=== PATIENT | female | born 1955 | race African-American/Black ===

== ENCOUNTER → 2016-06-02 | Emergency (ER) | payer MEDICARE, OTHER ==
[~2016-06-02] VITALS: Ht 148.6 cm; Wt 86.2 kg
[~2016-06-02] MED LIST: AMLO5TAB2 PO; ASPI325T4 PO; CIPR500T94 PO; FERR-26 PO; GABA-586 PO; INSU100C4 SQ; INSU100V8 SQ; LATA2.5D3 EACHEYE; LOVA10TA PO; MELO-150 PO; METF500T4 PO; OXYC-244 PO; OXYC20TA PO; OXYC5TAB PO; RANI150C PO; TRAM50TA PO; TRIA1CAP PO; WARF5TAB PO
[2016-06-02 15:34] VITALS: BP 180/88
== END ==
LOC: ER 14:07
DX: R05 Cough (principal); R06.02 Shortness of breath; Z53.21 Procedure and treatment not carried out due to patient leaving prior to being seen by health care provider

== ENCOUNTER → 2016-06-20 | Outpatient (CLI) | payer MEDICARE, OTHER ==
[2016-06-02 15:34] VITALS: BP 180/88
== END | disposition home or self-care (01) ==
LOC: LAB 11:30
PROVIDERS: ATTEND Orthopaedic Surgery Sports Medicine
DX: M25.551 Pain in right hip (principal)
CPT/HCPCS: 36415; 85651; 86141

== ENCOUNTER 2016-06-26 13:54 | Emergency (ER) | payer MEDICARE, OTHER ==
[~2016-06-26] VITALS: Ht 147.3 cm; Wt 86.2 kg
[2016-06-26 14:35] VITALS: BP 158/85
[2016-06-26] MEDS ORDERED: MORPHINE SULFATE 10 MG/ML VIAL. IM ONE (15:00)
--- NOTE | 2016-06-26 15:32 | RAD ---
Three-view right knee radiographs 06/26/2016 Clinical history: Right knee pain and swelling after twisting injury. AP, lateral and oblique digital radiographs of the right knee were obtained. There is diffuse osteopenia of the visualized bony structures. Mild to moderate degenerative changes are seen involving the right knee. No fracture or dislocation is seen. There is a minimal right suprapatellar joint effusion. Impression: No fracture or dislocation of the right knee is seen.
[2016-06-26] MEDS ORDERED: IBUP-1007 PO (16:04)
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
== END 2016-06-26 16:39 | disposition home or self-care (01) ==
LOC: ER 13:54
DX: M25.561 Pain in right knee (principal); E78.00 Pure hypercholesterolemia, unspecified; I10 Essential (primary) hypertension; E11.40 Type 2 diabetes mellitus with diabetic neuropathy, unspecified; G89.29 Other chronic pain; Z96.641 Presence of right artificial hip joint; Z88.8 Allergy status to other drugs, medicaments and biological substances; Z91.041 Radiographic dye allergy status
CPT/HCPCS: 73562; 96372; 99284; J2270

== ENCOUNTER 2016-10-12 08:33 | Emergency (ER) | payer MEDICARE, OTHER ==
[~2016-10-12] VITALS: Ht 147.3 cm; Wt 85.3 kg
[~2016-10-12 08:33] MED LIST changes: -ASPI325T4 PO; +ASPI325T8 PO; +IBUP-1007 PO; -MELO-150 PO; +MELO15TA23 PO; -OXYC-244 PO; +OXYC-327 PO; +WARF-78 PO; -WARF5TAB PO
[2016-10-12] MEDS ORDERED: HYDROmorphone 2 MG/ML VIAL IV PRN (09:45)
[2016-10-12] MEDS ORDERED: IV NORMAL SALINE 500ML BAG 500 ML IV ONE (09:45)
[2016-10-12] MEDS ORDERED: ONDANSETRON PF 4 MG/2 ML VIAL. IV ONE (09:45)
[2016-10-12] MEDS ORDERED: MORP15TA PO (09:50)
--- NOTE | 2016-10-12 09:51 | PHYS DOC ---
Past Medical History Past Medical History: Diabetes-Type II, High Cholesterol, Hypertension Additional Past Medical Histor: diabetic neuropathy,chronic rt hip pain(needs replacement) Past Surgical History: Hip Replacement Additional Past Surgical Histo: R hip Alcohol Use: None Drug Use: None Adult General Chief Complaint Chief Complaint: PAIN CONTROL HPI HPI 61-year-old female residing to the emergency department with right hip and knee pain after falling last week. She describes the pain is moderate nonradiating pain. She reports her right knee donna when she walks several to well. Her hip she has a history of total hip replacement in the past but not recent. She also complains of pain "from her toes to her head." No alleviating factors present. Worse with walking. Review of systems is negative for shortness of breath nausea vomiting diarrhea rashes. All other review of systems is negative unless otherwise noted in history of present illness. ED course: 61-year-old female presenting with right hip pain and right knee pain. Afebrile. Patient has chronic hypertension and is hypertensive present here. Physical examination shows mild pain with range of motion of both joints. Negative Dorothy's test. No laxity with varus or valgus testing. Range of motion of the right hip shows pain with passive range of motion. No clicking present. Normal neurovascular status present distally. Otherwise unremarkable. The patient was given IV pain medication and nausea medication with a small bolus of fluids. X-rays were obtained and neg. On reexamination she was feeling better and subsequent discharged home. The patient was then discharged home in stable condition to follow up with their primary care physician over the next 2- 3 days. They were to return if their symptoms worsened or if they were concerned for any reason. Nisu-ye-zijk discharge instructions and return precautions were given. Patient's questions were answered to their satisfaction. Patient is comfortable plan. Review of Systems Review of Systems SEE ABOVE. Current Medications Current Medications Current Medications Medications (Trade) Dose Ordered Sig/[facility] Start Time Stop Time Status Last Admin Dose Admin Hydromorphone HCl (Dilaudid) 0.5 mg PRN Q30MIN PRN 10/12/16 09:45 10/12/16 10:17 0.5 MG Ondansetron HCl (Zofran) 4 mg 1X ONCE 10/12/16 09:45 10/12/16 09:46 DC 6/24/17 10:16 4 MG Sodium Chloride 500 ml @ 500 mls/hr 1X ONCE 10/12/16 09:45 10/12/16 10:44 DC 10/12/16 10:16 500 MLS/HR Allergies Allergies Allergies Coded Allergies Type Severity Reaction Last Updated Verified Iodinated Contrast Media - Oral and Allergy Intermediate Hives 12/16/15 Yes losartan Allergy Intermediate 12/16/15 Yes lisinopril Adverse Reaction Intermediate COUGH 12/16/15 Yes Physical Exam Physical Exam Constitutional: Well developed, well nourished, no acute distress, non-toxic appearance. HENT: Normocephalic, atraumatic, bilateral external ears normal, oropharynx moist, no oral exudates, nose normal. [] Eyes: PERRLA, EOMI, conjunctiva normal, no discharge. [] Neck: Normal range of motion, no tenderness, supple, no stridor. Cardiovascular:Heart rate regular rhythm, no murmur [] Lungs & Thorax: Bilateral breath sounds clear to auscultation [] Abdomen: Bowel sounds normal, soft, no tenderness, no masses, no pulsatile masses. [] Skin: Warm, dry, no erythema, no rash. Back: No tenderness, no CVA tenderness. [] Extremities: see above Neurologic: Alert and oriented X 3, normal motor function, normal sensory function, no focal deficits noted. Psychologic: Affect normal, judgement normal, mood normal. [] Current Patient Data Vital Signs Vital Signs Date Time Temp Pulse Resp B/P (MAP) Pulse Ox O2 Delivery O2 Flow Rate FiO2 10/12/16 10:17 16 94 Room Air 10/12/16 09:16 98.1 79 190/84 (119) 98.1 EKG EKG [] Radiology/Procedures Radiology/Procedures [] Course & Med Decision Making Course & Med Decision Making Pertinent Labs and Imaging studies reviewed. (See chart for details) [] Dragon Disclaimer Dragon Disclaimer This electronic medical record was generated, in whole or in part, using a voice recognition dictation system. Departure Departure Impression: Primary Impression: Hip pain, acute Additional Impression: Knee pain, right Disposition: 01 HOME, SELF-CARE Condition: STABLE Referrals: HESHAM BEY MD (PCP) Patient Instructions: Hip Pain, Knee Pain Additional Instructions: Thank you for allowing us to participate in your care today. Followup with your primary care physician in 3 days if your symptoms do not improve. Call your Primary Doctor tomorrow and inform them of your visit today. If you do not have a primary care provider you can ask for a list of our primary care providers. Return to the emergency department you have any new or concerning findings. This should be evaluated by the primary care physician and any necessary consulting services for continued management within a few days after discharge. Return to emergency room if you have any new or concerning symptoms including but not limited to fever, chills, nausea, vomiting, intractable pain, any new rashes, chest pain, shortness of air, uncontrolled bleeding, difficulty breathing, and/or vision loss. You may have been prescribed medication that can change in your level of thinking and ability to operate machinery. These medications include hydrocodone and Ativan. Also, Benadryl has been known to do this as well. Be sure to check with your pharmacist and ask if the medications you've prescribed can affect your level of consciousness. I recommend not operating heavy machinery or driving while on medication such as these. Scripts Morphine Sulfate (MORPHINE SULFATE) 15 Mg Tablet 1 TAB PO PRN Q6-8HRS Y for SEVERE PAIN, #4 TAB Prov: RAY BAILON MD 10/12/16 Problem Qualifiers RAY BAILON MD Oct 12, 2016 09:51
--- NOTE | 2016-10-12 10:22 | RAD ---
RIGHT HIP AP AND LATERAL, AP pelvis Clinical Indication: right knee pain, fell x1 week. Hip replacement 12 months ago. Comparison: AP pelvis and right hip 12/17/2015. Findings: There is no acute fracture or dislocation. Right hip arthroplasty. Alignment is anatomic. There is no subsidence. Lucency along the distal femoral stem measures 1 mm or less. Pelvic bones are intact. There is no soft tissue abnormality. IMPRESSION: No acute fracture or dislocation.
--- NOTE | 2016-10-12 10:27 | RAD ---
KNEE 3 VIEWS RIGHT Clinical Indication: right knee pain fall x1 week Comparison: None. Findings: There is no acute fracture or dislocation. Medial compartment narrowing. Small marginal osteophytes of all 3 compartments. The patella is in anatomic position. There is no soft tissue abnormality. There is no joint effusion. IMPRESSION: No acute fracture.
[2016-10-12 12:09] VITALS: BP 162/77
== END 2016-10-12 12:16 | disposition home or self-care (01) ==
LOC: ER 08:33
DX: M25.561 Pain in right knee (principal); M25.551 Pain in right hip; E11.40 Type 2 diabetes mellitus with diabetic neuropathy, unspecified; E78.00 Pure hypercholesterolemia, unspecified; I10 Essential (primary) hypertension; Z96.641 Presence of right artificial hip joint; Z88.8 Allergy status to other drugs, medicaments and biological substances; Z91.041 Radiographic dye allergy status; W19.XXXA Unspecified fall, initial encounter; Y93.89 Activity, other specified; Y99.8 Other external cause status; Y92.89 Other specified places as the place of occurrence of the external cause
CPT/HCPCS: 73502; 73562; 96361; 96374; 96375; 99284; J1170; J2405; J7040

== ENCOUNTER 2016-11-01 10:56 | Emergency (ER) | payer MEDICARE, OTHER ==
[~2016-11-01] VITALS: Ht 147.3 cm; Wt 85.7 kg
[~2016-11-01 10:56] MED LIST changes: +MORP15TA PO
[2016-11-01 11:14] VITALS: BP 161/104
--- NOTE | 2016-11-01 11:34 | PHYS DOC ---
Past Medical History Past Medical History: Constipation, Diabetes-Type II, High Cholesterol, Hypertension Additional Past Medical Histor: diabetic neuropathy,chronic rt hip pain Past Surgical History: Hip Replacement, Hysterectomy Additional Past Surgical Histo: R hip Alcohol Use: None Drug Use: None Adult General Chief Complaint Chief Complaint: HIP PAIN HPI HPI Patient is a 61 year old -[place] female who presents with chronic right hip pain that was made worse after October 22 when she fell at [employer] she states it hurts constantly in her inguinal area. She also has had been left foot pain for 2 days. She's one if she stepped on something. She denies a fevers chills swelling of her foot or shortness of breath. She also noticed a lump in her breast this morning. She states she gets mammograms routinely he's never had issues before. She sees Dr. Hesham Epperson. Review of Systems Review of Systems Constitutional: Denies fever or chills [] Eyes: Denies change in visual acuity, redness, or eye pain [] HENT: Denies nasal congestion or sore throat [] Respiratory: Denies cough or shortness of breath [] Cardiovascular: No additional information not addressed in HPI [] GI: Denies abdominal pain, nausea, vomiting, bloody stools or diarrhea [] : Denies dysuria or hematuria [] Musculoskeletal: Denies back pain, positive for left foot pain and right hip pain Integument: Denies rash or skin lesions [] Neurologic: Denies headache, focal weakness or sensory changes [] Endocrine: Denies polyuria or polydipsia [] Current Medications Current Medications Current Medications Medications (Trade) Dose Ordered Sig/[facility] Start Time Stop Time Status Last Admin Dose Admin Oxycodone HCl (Roxicodone) 10 mg 1X ONCE 11/01/16 13:30 11/01/16 13:31 Allergies Allergies Allergies Coded Allergies Type Severity Reaction Last Updated Verified Iodinated Contrast Media - Oral and Allergy Intermediate Hives 12/16/15 Yes losartan Allergy Intermediate 12/16/15 Yes lisinopril Adverse Reaction Intermediate COUGH 12/16/15 Yes Physical Exam Physical Exam Constitutional: Well developed, well nourished, no acute distress, non-toxic appearance. [] HENT: Normocephalic, atraumatic, bilateral external ears normal, oropharynx moist, no oral exudates, nose normal. [] Eyes: PERRLA, EOMI, conjunctiva normal, no discharge. [] Neck: Normal range of motion, no tenderness, supple, no stridor. [] Cardiovascular:Heart rate regular rhythm, no murmur [] Lungs & Thorax: Bilateral breath sounds clear to auscultation right breast exam with gastroenterologist present shows mild tender to palpation in the 3 o'clock position without any mass appreciated, no nipple discharge. Abdomen: Bowel sounds normal, soft, no tenderness, no masses, no pulsatile masses. [] Skin: Warm, dry, no erythema, no rash. [] Back: No tenderness, no CVA tenderness. [] Extremities: Tender palpation of the right hip and left foot, no obvious deformities noted,, no cyanosis, no clubbing, ROM intact, no edema. [] Neurologic: Alert and oriented X 3, normal motor function, normal sensory function, no focal deficits noted. [] Psychologic: Affect normal, judgement normal, mood normal. [] Current Patient Data Vital Signs Vital Signs Date Time Temp Pulse Resp B/P (MAP) Pulse Ox O2 Delivery O2 Flow Rate FiO2 11/01/16 11:14 98.3 95 20 161/104 (123) 96 Room Air 98.3 EKG EKG [] Radiology/Procedures Radiology/Procedures [facility] [address] [place], [place] [id number] IMAGING REPORT Signed PATIENT: JULITA EPPERSON ACCOUNT: [id number] : 1955 LOCATION: ER AGE: 61 SEX: F EXAM STATUS: REG ER ORD. PHYSICIAN: AMEE GONZALEZ MD REASON: pain PROCEDURE: FOOT LEFT 3V Exam: Left foot radiograph 11/01/2016 at 1211 hours Indication: Stepped on unknown object pain in plantar surface the first and second metatarsal heads Comparison: None available Technique: 3 views of the left foot are provided. Findings: There is no acute fracture or dislocation. No joint space narrowing. No soft tissue swelling. No osseous erosion or soft tissue gas. Bone mineralization is within normal limits. No radiopaque foreign density. Impression: No acute fracture or dislocation. No radiopaque foreign density. DICTATED and SIGNED BY: PAOLO FOURNIER MD DATE: 11/01/16 1239 CC: AMEE GONZALEZ MD; HESHAM EPPERSON MD ~ [facility] [address] [place] [address] IMAGING REPORT Signed PATIENT: JULITA EPPERSON ACCOUNT: [id number] : 1955 LOCATION: ER AGE: 61 SEX: F EXAM STATUS: REG ER ORD. PHYSICIAN: AMEE GONZALEZ MD REASON: pain PROCEDURE: HIP RIGHT 2V WITH PELVIS Exam: Right hip radiograph 11/01/2016 at 1207 hours Indication: Fall 10/22/2016 with right groin pain Comparison: 10/12/2016 Technique: AP view of the pelvis and 2 dedicated views of the right hip are provided. Findings: Right total hip arthroplasty with components in expected alignment. No periprosthetic lucency. There is no acute fracture or dislocation. Mild degenerative changes of the lumbar spine and sacroiliac joints. No soft tissue swelling. No osseous erosion or soft tissue gas. Bone mineralization is within normal limits. Impression: No acute periprosthetic fracture or dislocation involving the right hip. DICTATED and SIGNED BY: PAOLO FOURNIER MD DATE: 11/01/16 1240 CC: AMEE GONZALEZ MD; HESHAM EPPERSON MD ~ Impressions: Right hip pain Foot pain Course & Med Decision Making Course & Med Decision Making Pertinent Labs and Imaging studies reviewed. (See chart for details) Trace of the right hip and left foot are nonacute. Her breast exam shows mild tenderness at do not appreciate a mass, I suspect this is her normal breast architecture but she does have some tenderness. She was given 10 mg oxycodone and discharged home. She is instructed to follow-up with her primary care physician within next 5-10 days regarding her breast in her chronic pain. Return precautions given she is agreeable to the plan and being discharged in stable condition this time. She was instructed she had have a neighbor drive her home before she was given her oxycodone since she drove herself here. Dragon Disclaimer Dragon Disclaimer This electronic medical record was generated, in whole or in part, using a voice recognition dictation system. Departure Departure Impression: Primary Impression: Hip pain, right Disposition: HOME, SELF-CARE Condition: STABLE Referrals: HESHAM EPPERSON MD (PCP) Patient Instructions: Hip Pain Additional Instructions: Your x-rays of your hip and foot did not show anything broken. Your being discharged home. If you continue to have pain in your right breast or your lump increases or doesn't go away you need to follow-up with her primary care physician. He will need to see him within the next 5-10 days. Return ER for severe pain, fevers, or other concerns. AMEE GONZALEZ MD Nov 01, 2016 11:34
--- NOTE | 2016-11-01 12:43 | RAD ---
Exam: Left foot radiograph 11/01/2016 at 1211 hours Indication: Stepped on unknown object pain in plantar surface the first and second metatarsal heads Comparison: None available Technique: 3 views of the left foot are provided. Findings: There is no acute fracture or dislocation. No joint space narrowing. No soft tissue swelling. No osseous erosion or soft tissue gas. Bone mineralization is within normal limits. No radiopaque foreign density. Impression: No acute fracture or dislocation. No radiopaque foreign density.
--- NOTE | 2016-11-01 12:45 | RAD ---
Exam: Right hip radiograph 11/01/2016 at 1207 hours Indication: Fall 10/22/2016 with right groin pain Comparison: 10/12/2016 Technique: AP view of the pelvis and 2 dedicated views of the right hip are provided. Findings: Right total hip arthroplasty with components in expected alignment. No periprosthetic lucency. There is no acute fracture or dislocation. Mild degenerative changes of the lumbar spine and sacroiliac joints. No soft tissue swelling. No osseous erosion or soft tissue gas. Bone mineralization is within normal limits. Impression: No acute periprosthetic fracture or dislocation involving the right hip.
[2016-11-01] MEDS ORDERED: oxyCODONE IR 5 MG TABLET PO ONE (13:30)
== END 2016-11-01 13:33 | disposition home or self-care (01) ==
LOC: ER 10:56
DX: M25.551 Pain in right hip (principal); M79.672 Pain in left foot; G89.29 Other chronic pain; N63 Unspecified lump in breast; E11.40 Type 2 diabetes mellitus with diabetic neuropathy, unspecified; E78.00 Pure hypercholesterolemia, unspecified; I10 Essential (primary) hypertension; Z96.649 Presence of unspecified artificial hip joint; Z90.710 Acquired absence of both cervix and uterus; Z88.8 Allergy status to other drugs, medicaments and biological substances; Z91.041 Radiographic dye allergy status; W18.39XA Other fall on same level, initial encounter; Y93.89 Activity, other specified; Y99.8 Other external cause status; Y92.29 Other specified public building as the place of occurrence of the external cause
CPT/HCPCS: 73502; 73630; 99284

== ENCOUNTER 2016-11-21 17:34 | Emergency (ER) | payer OTHER ==
[~2016-11-21] VITALS: Ht 147.3 cm; Wt 83.9 kg
[2016-11-21 18:17] VITALS: BP 152/64
[2016-11-21] MEDS ORDERED: METOCLOPRAMIDE 10 MG TABLET. PO ONE (19:00)
[2016-11-21] MEDS ORDERED: ONDANSETRON ODT 4 MG TAB.RAPDIS. PO ONE (19:00)
--- NOTE | 2016-11-21 23:48 | ED.ADGEN ---
Past Medical History Past Medical History: Constipation, Diabetes-Type II, High Cholesterol, Hypertension Additional Past Medical Histor: diabetic neuropathy,chronic rt hip pain Past Surgical History: Hip Replacement, Hysterectomy Additional Past Surgical Histo: R hip Alcohol Use: None Drug Use: None Social History Narrative: sober Adult General Chief Complaint Chief Complaint: MULTIPLE COMPLAINTS HPI HPI Patient is a 61 year old -[place] female presents with dysphagia. Patient reports painful difficulty swallowing prior to ED arrival resulting and epigastric pain and discomfort. Symptoms have since resolved. Patient denies nausea vomiting, inability to swallow liquids and solid foods. This is a chronic recurrent problem. Patient states symptoms are worse when she feels distended. Patient has chronic constipation and has not had a bowel movement in past 3 weeks. States she can sometimes go greater than month without a bowel movement. She took mag citrate 2 days ago without relief. His previous history of instruction. She denies diarrhea and is able to pass flatus. No fever, chills, vomiting and sweats. No other acute symptoms or complaints. Review of Systems Review of Systems ROS as per HPI. Current Medications Current Medications Current Medications Medications (Trade) Dose Ordered Sig/Jani Start Time Stop Time Status Last Admin Dose Admin Metoclopramide HCl (Reglan) 10 mg 1X ONCE 11/21/16 19:00 11/21/16 19:01 DC Ondansetron HCl (Zofran Odt) 4 mg 1X ONCE 11/21/16 19:00 11/21/16 19:01 DC Allergies Allergies Allergies Coded Allergies Type Severity Reaction Last Updated Verified Iodinated Contrast- Oral and IV Dye Allergy Intermediate Hives 12/16/15 Yes losartan Allergy Intermediate 12/16/15 Yes lisinopril Adverse Reaction Intermediate COUGH 12/16/15 Yes Physical Exam Physical Exam Constitutional: Well developed, well nourished, no acute distress, non-toxic appearance. [] HENT: Normocephalic, atraumatic, bilateral external ears normal, oropharynx moist, no oral exudates, nose normal. [] Eyes: PERRLA, EOMI, conjunctiva normal, no discharge. [] Neck: Normal range of motion, no tenderness, supple, no stridor. [] Cardiovascular:Heart rate regular rhythm, no murmur [] Lungs & Thorax: Bilateral breath sounds clear to auscultation [] Abdomen: Bowel sounds normal, soft, stented, normal bowel sounds.. [] Skin: Warm, dry, no erythema, no rash. [] Back: No tenderness, no CVA tenderness. [] Extremities: No tenderness, no cyanosis, no clubbing, ROM intact, no edema. [] Neurologic: Alert and oriented X 3, normal motor function, normal sensory function, no focal deficits noted. [] Psychologic: Affect is anxious. Current Patient Data Vital Signs Vital Signs Date Time Temp Pulse Resp B/P (MAP) Pulse Ox O2 Delivery O2 Flow Rate FiO2 11/21/16 18:17 86 27 152/64 (93) 95 Room Air 11/21/16 17:50 98.3 98.3 EKG EKG [] Radiology/Procedures Radiology/Procedures [Acute abdominal series: No air-fluid levels.] Course & Med Decision Making Course & Med Decision Making Pertinent Labs and Imaging studies reviewed. (See chart for details) [Patient clinically anxious. Abdomen soft, nondistended but nonsurgical. No nausea vomiting in the ED. Denies chest pain shortness of breath. Patient does suffer from chronic constipation likely contributing to her dysphagia. Recommendations are to continue current antacids and with he follow-up for consideration of GI referral. Return precautions reviewed. Patient verbalizes understanding agreement discharge instructions prior to departure. Dragon Disclaimer Dragon Disclaimer This electronic medical record was generated, in whole or in part, using a voice recognition dictation system. KRISSY SU DO Nov 21, 2016 23:48
--- NOTE | 2016-11-22 08:00 | RAD ---
Acute abdominal series 11/21/2016 Clinical indication: Nausea and vomiting for one week, epigastric pain. Hypertension and diabetes. Comparison: Chest radiograph 11/05/2015, CT abdomen and pelvis 09/08/2015. Findings: Cardiac and mediastinal silhouettes are within normal limits. No pleural effusion, pneumothorax or focal consolidation. There is a nonobstructive bowel gas pattern. Total right hip arthroplasty. There is a 12 mm calcific density projected left lateral to the L3-L4 level and concerning for a migrated renal stone which may be in the mid left ureter. Impression: 1. 12 mm calcific density projected in the region of the mid left ureter which may represent a urolith. Given epigastric pain, consideration for noncontrast CT for further evaluation. 2. No radiographic evidence of bowel obstruction or acute cardiopulmonary abnormality. These results and recommendations were discussed with with Dr. Vazquez of the emergency service by telephone at 7:55 AM 11/22/[address] Nitin Diane.
== END 2016-11-21 19:35 | disposition home or self-care (01) ==
LOC: ER 17:34
DX: R10.13 Epigastric pain (principal); R13.10 Dysphagia, unspecified; E11.40 Type 2 diabetes mellitus with diabetic neuropathy, unspecified; E78.00 Pure hypercholesterolemia, unspecified; I10 Essential (primary) hypertension; G89.29 Other chronic pain; F41.9 Anxiety disorder, unspecified; Z96.641 Presence of right artificial hip joint; Z90.710 Acquired absence of both cervix and uterus; Z91.041 Radiographic dye allergy status; Z88.8 Allergy status to other drugs, medicaments and biological substances
CPT/HCPCS: 74022; 99284

== ENCOUNTER → 2016-12-25 | Outpatient (CLI) | payer MEDICARE, OTHER ==
[~2016-12-25] MED LIST changes: -OXYC5TAB PO; +OXYC5TAB95 PO
--- NOTE | 2016-12-25 15:56 | KCIC ---
Bilateral diagnostic digital mammograms: Reason for examination: Right breast lump. Comparison is made to previous study dated 02/28/2012. The skin and nipples show no abnormalities. No abnormal lymph nodes are seen. The breast parenchyma is predominantly fatty. (Breast density: Category A.) There continues to be a small nodular density at the 1:30 B position of the right breast which has decreased in size. There are no new dominant masses, suspicious calcifications or architectural distortions. No abnormality is seen in the area of clinical concern in the lower inner quadrant of the right breast. Impression: No evidence of malignancy. Ultrasound to follow. BI-RADS Category 0: Incomplete. Ultrasound to follow. Right breast ultrasound: Ultrasound examination was performed in the area of clinical concern at the 3:00 position 6 cm from the nipple. There is a small hyperintense lesion consistent with a lipoma measuring approximately 8.7 mm in greatest dimension. In the 2:00 position 9 cm from the nipple, there is also a hyperintense lesion measuring 6.4 mm in greatest dimension also consistent with a lipoma. No other discrete lesions are identified. IMPRESSION: Small benign-appearing lipoma in the 3:00 and 2:00 positions of the right breast. No suspicious abnormality seen. Recommend routine mammographic follow-up. BI-RADS Category 2: Benign. "Our facility is accredited by the [employer] Mammography Program." This patient's information has been entered into a reminder system for the patient to be notified with the results of her examination and a target date for the next mammogram. Electronically signed by: Liseth Casarez MD (12/25/2016 3:53 PM) [id number]
== END | disposition home or self-care (01) ==
LOC: KCIC MAMMO 13:48
PROVIDERS: ATTEND Family Medicine
DX: N63 Unspecified lump in breast (principal)
CPT/HCPCS: 76641; G0204; 77066

== ENCOUNTER 2017-01-23 16:11 | Emergency (ER) | payer OTHER ==
[~2017-01-23] VITALS: Ht 147.3 cm; Wt 81.6 kg
[2017-01-23 16:28] VITALS: BP 160/88
--- NOTE | 2017-01-23 16:40 | PHYS DOC ---
Past Medical History Past Medical History: Constipation, Diabetes-Type II, High Cholesterol, Hypertension Additional Past Medical Histor: diabetic neuropathy,chronic rt hip pain Past Surgical History: Hip Replacement, Hysterectomy Additional Past Surgical Histo: R hip Alcohol Use: None Drug Use: None Adult General Chief Complaint Chief Complaint: KNEE INJURY HPI HPI Patient is a 61 year old L presents to the emergency department to chronic left knee pain. Patient states that she has had left knee pain for "a long time. She states that she sees an orthopedic physician for her right hip but does not want to see him for her left knee issues. Patient has a chronic use of oxycodone and tramadol. In a 30 day window she filled oxycodone 20 mg tablets # 180 and tramadol 50 mg tablets #240. Urgency department requesting an injection of Dilaudid Review of Systems Review of Systems Constitutional: Denies fever or chills [] Eyes: Denies change in visual acuity, redness, or eye pain [] HENT: Denies nasal congestion or sore throat [] Respiratory: Denies cough or shortness of breath [] Cardiovascular: No additional information not addressed in HPI [] GI: Denies abdominal pain, nausea, vomiting, bloody stools or diarrhea [] : Denies dysuria or hematuria [] Musculoskeletal: Chronic knee pain Integument: Denies rash or skin lesions [] Neurologic: Denies headache, focal weakness or sensory changes [] Endocrine: Denies polyuria or polydipsia [] Allergies Allergies Allergies Coded Allergies Type Severity Reaction Last Updated Verified Iodinated Contrast- Oral and IV Dye Allergy Intermediate Hives 12/16/15 Yes losartan Allergy Intermediate 12/16/15 Yes lisinopril Adverse Reaction Intermediate COUGH 12/16/15 Yes Physical Exam Physical Exam Constitutional: Well developed, well nourished, no acute distress, non-toxic appearance. [] HENT: Normocephalic, atraumatic, bilateral external ears normal, oropharynx moist, no oral exudates, nose normal. [] Eyes: PERRLA, EOMI, conjunctiva normal, no discharge. [] Neck: Normal range of motion, no tenderness, supple, no stridor. [] Cardiovascular:Heart rate regular rhythm, no murmur [] Lungs & Thorax: Bilateral breath sounds clear to auscultation [] Abdomen: Bowel sounds normal, soft, no tenderness, no masses, no pulsatile masses. [] Skin: Warm, dry, no erythema, no rash. [] Back: No tenderness, no CVA tenderness. [] Extremities: Left lower extremity exam: Left hip left ankle exam unremarkable. Left knee without swelling or erythema. Full range of motion without difficult. No crepitus with flexion extension. No laxity on anterior drawer negative valgus /varus stress test. Neurovascular intact distally. Calf is supple and nontender. Neurologic: Alert and oriented X 3, normal motor function, normal sensory function, no focal deficits noted. [] Psychologic: Affect normal, judgement normal, mood normal. [] Current Patient Data Vital Signs Vital Signs Date Time Temp Pulse Resp B/P (MAP) Pulse Ox O2 Delivery O2 Flow Rate FiO2 01/23/17 16:28 98.3 83 16 97 Room Air 98.3 EKG EKG [] Radiology/Procedures Radiology/Procedures [] Course & Med Decision Making Course & Med Decision Making Pertinent Labs and Imaging studies reviewed. (See chart for details) []Patient was given a shot of Depo-Medrol 40 mg IM in the emergency department. I did have a long discussion with her regarding her fill history for narcotic medications. I did advise her she would not be given any narcotics in the emergency room visit today. Patient was somewhat argumentative. I advised her to follow-up with her primary care provider for further evaluation and use of her chronic pain medications. Dragon Disclaimer Dragon Disclaimer This electronic medical record was generated, in whole or in part, using a voice recognition dictation system. Departure Departure Impression: Primary Impression: Chronic pain of left knee Disposition: 01 HOME, SELF-CARE Condition: STABLE Referrals: HESHAM BEY MD (PCP) Patient Instructions: Chronic Pain Additional Instructions: Follow-up with your primary care provider tomorrow. BRUNO LEWIS [employer] Jan 23, 2017 16:39
[2017-01-23] MEDS ORDERED: methylPREDNISolone ACETATE 40 MG/ML VIAL. IM ONE (16:45)
[2017-02-20] MEDS ORDERED: INSU100V5 IJ (08:28)
== END 2017-01-23 16:50 | disposition home or self-care (01) ==
LOC: ER 16:11
DX: G89.29 Other chronic pain (principal); M25.562 Pain in left knee; I10 Essential (primary) hypertension; E78.00 Pure hypercholesterolemia, unspecified; E11.40 Type 2 diabetes mellitus with diabetic neuropathy, unspecified; Z91.041 Radiographic dye allergy status; Z88.8 Allergy status to other drugs, medicaments and biological substances
CPT/HCPCS: 29505; 96372; 99283; J1030

== ENCOUNTER → 2017-07-04 | Outpatient (CLI) | payer OTHER | END | disposition home or self-care (01) | LOC: KCIC MRI 11:04 | DX: M47.892 Other spondylosis, cervical region (principal); R20.0 Anesthesia of skin | CPT/HCPCS: 72141 ==

== ENCOUNTER → 2017-08-20 | Outpatient (CLI) | payer OTHER ==
[~2017-08-20] MED LIST changes: -AMLO5TAB2 PO; -ASPI325T8 PO; -CIPR500T94 PO; -FERR-26 PO; -GABA-586 PO; -IBUP-1007 PO; -INSU100C4 SQ; -INSU100V8 SQ; +IOHEXOL 300 MG/ML 10ML VIAL. INT ART; -LATA2.5D3 EACHEYE; -LOVA10TA PO; -MELO15TA23 PO; -METF500T4 PO; -MORP15TA PO; -OXYC-327 PO; -OXYC20TA PO; -OXYC5TAB95 PO; -RANI150C PO; -TRAM50TA PO; -TRIA1CAP PO; -WARF-78 PO
[2017-08-20] MEDS: LIDOCAINE WITH 8.4% SOD BICARB 3 ML DISP.SYRIN. INJ (08:50)
== END | disposition home or self-care (01) ==
LOC: RAD 15:41
DX: M25.551 Pain in right hip (principal); H40.9 Unspecified glaucoma; E78.00 Pure hypercholesterolemia, unspecified; I10 Essential (primary) hypertension; E66.9 Obesity, unspecified; M19.90 Unspecified osteoarthritis, unspecified site; E11.9 Type 2 diabetes mellitus without complications; F32.9 Major depressive disorder, single episode, unspecified; K21.9 Gastro-esophageal reflux disease without esophagitis; F17.200 Nicotine dependence, unspecified, uncomplicated; D64.9 Anemia, unspecified; Z80.0 Family history of malignant neoplasm of digestive organs; Z90.721 Acquired absence of ovaries, unilateral; Z83.3 Family history of diabetes mellitus; Z82.49 Family history of ischemic heart disease and other diseases of the circulatory system; Z98.890 Other specified postprocedural states
CPT/HCPCS: 20605; 77002; 87071; 87075; 87205

== ENCOUNTER 2018-03-13 08:11 | Emergency (ER) | payer OTHER ==
[~2018-03-13] VITALS: Ht 147.3 cm; Wt 79.4 kg
[~2018-03-13 08:11] MED LIST changes: +AMLO5TAB7 PO; +ASPI325T8 PO; +CIPR500T94 PO; +FERR325T14 PO; +GABA-586 PO; +IBUP-1007 PO; +INSU100C4 SQ; +INSU100V5 IJ; +INSU100V8 SQ; -IOHEXOL 300 MG/ML 10ML VIAL. INT ART; +LATA2.5D3 EACHEYE; +LOVA10TA PO; +MELO15TA23 PO; +METF500T16 PO; +MORP15TA PO; +OXYC-327 PO; +OXYC20TA PO; +OXYC5TAB95 PO; +RANI150C PO; +TRAM50TA PO; +TRIA1CAP PO; +WARF-78 PO
[2018-03-13] MEDS ORDERED: CLOT15CR5 TP (09:35)
[2018-03-13] MEDS ORDERED: NYST15PO9 TP (09:35)
--- NOTE | 2018-03-13 09:35 | PHYS DOC ---
Past Medical History Past Medical History: Constipation, Depression, Diabetes-Type II, High Cholesterol, Hypertension, Other Additional Past Medical Histor: diabetic neuropathy,chronic rt hip pain Past Surgical History: Hip Replacement, Hysterectomy, Other Additional Past Surgical Histo: R hip Alcohol Use: None Drug Use: None Adult General Chief Complaint Chief Complaint: SKIN RASH/ABSCESS HPI HPI Patient is a 62 year old [f__sex] who presents with [] Review of Systems Review of Systems Constitutional: Denies fever or chills [] Eyes: Denies change in visual acuity, redness, or eye pain [] HENT: Denies nasal congestion or sore throat [] Respiratory: Denies cough or shortness of breath [] Cardiovascular: No additional information not addressed in HPI [] GI: Denies abdominal pain, nausea, vomiting, bloody stools or diarrhea [] : Denies dysuria or hematuria [] Musculoskeletal: Denies back pain or joint pain [] Integument: Denies rash or skin lesions [] Neurologic: Denies headache, focal weakness or sensory changes [] Endocrine: Denies polyuria or polydipsia [] All other systems were reviewed and found to be within normal limits, except as documented in this note. Allergies Allergies Allergies Coded Allergies Type Severity Reaction Last Updated Verified Iodinated Contrast- Oral and IV Dye Allergy Intermediate Hives 12/16/15 Yes losartan Allergy Intermediate breaks out 02/20/17 Yes lisinopril Adverse Reaction Intermediate COUGH 12/16/15 Yes Physical Exam Physical Exam Constitutional: Well developed, well nourished, no acute distress, non-toxic appearance. [] HENT: Normocephalic, atraumatic, bilateral external ears normal, oropharynx moist, no oral exudates, nose normal. [] Eyes: PERRLA, EOMI, conjunctiva normal, no discharge. [] Neck: Normal range of motion, no tenderness, supple, no stridor. [] Cardiovascular:Heart rate regular rhythm, no murmur [] Lungs & Thorax: Bilateral breath sounds clear to auscultation [] Abdomen: Bowel sounds normal, soft, no tenderness, no masses, no pulsatile masses. [] Skin: Warm, dry, no erythema, no rash. [] Back: No tenderness, no CVA tenderness. [] Extremities: No tenderness, no cyanosis, no clubbing, ROM intact, no edema. [] Neurologic: Alert and oriented X 3, normal motor function, normal sensory function, no focal deficits noted. [] Psychologic: Affect normal, judgement normal, mood normal. [] Current Patient Data Vital Signs Vital Signs Date Time Temp Pulse Resp B/P (MAP) Pulse Ox O2 Delivery O2 Flow Rate FiO2 03/13/18 09:13 98.4 85 17 149/86 (107) 95 Room Air 98.4 EKG EKG [] Radiology/Procedures Radiology/Procedures [] Course & Med Decision Making Course & Med Decision Making Pertinent Labs and Imaging studies reviewed. (See chart for details) [] Dragon Disclaimer Dragon Disclaimer This electronic medical record was generated, in whole or in part, using a voice recognition dictation system. Departure Departure Impression: Primary Impression: Intertrigo Referrals: HESHAM BEY MD (PCP) Patient Instructions: Yeast Infection of the Skin, [id number] Additional Instructions: Use the cream to help control itching and to clear up the infection. The powder will help keep the skin dry and resolve the yeast. Follow-up with your primary care provider in one week if not improving or return to the emergency department if worsening. Scripts Nystatin (NYSTATIN) 15 Gm Powder 1 WERO TP BID for rash, #1 BOTTLE Prov: PATTIE MONTOYA APRN 03/13/18 Clotrimazole/Betamethasone Dip (CLOTRIMAZOLE-BETAMETHASONE CRM) 15 Gm Cream..g. 1 WERO TP BID for rash, #30 GM 1 Refill Prov: PATTIE MONTOYA APRN 03/13/18 PATTIE MONTOYA APRN Mar 13, 2018 09:35
== END 2018-03-13 09:41 | disposition home or self-care (01) ==
LOC: ER 08:11
DX: L30.4 Erythema intertrigo (principal); E78.00 Pure hypercholesterolemia, unspecified; I10 Essential (primary) hypertension; E11.40 Type 2 diabetes mellitus with diabetic neuropathy, unspecified; G89.29 Other chronic pain; Z88.8 Allergy status to other drugs, medicaments and biological substances; Z91.041 Radiographic dye allergy status
CPT/HCPCS: 99284

== ENCOUNTER 2018-03-15 06:54 | Emergency (ER) | payer OTHER ==
[~2018-03-15] VITALS: Ht 147.3 cm; Wt 83.9 kg
[~2018-03-15 06:54] MED LIST changes: +CLOT15CR5 TP; +NYST15PO9 TP; -OXYC-327 PO; +OXYC1TAB19 PO; +OXYC5TAB4 PO; -OXYC5TAB95 PO
[2018-03-15] MEDS ORDERED: IV NORMAL SALINE 1000ML BAG 1,000 ML IV SCH (06:56)
[2018-03-15] MEDS ORDERED: ONDANSETRON PF 4 MG/2 ML VIAL. IV ONE (07:00)
--- NOTE | 2018-03-15 07:00 | PHYS DOC ---
Past Medical History Past Medical History: Constipation, Depression, Diabetes-Type II, High Cholesterol, Hypertension, Other Additional Past Medical Histor: diabetic neuropathy,chronic rt hip pain Past Surgical History: Hip Replacement, Hysterectomy, Other Additional Past Surgical Histo: R hip Smoking: Cigarettes (The patient is a nonsmoker.) Alcohol Use: None Drug Use: None Adult General HPI HPI Patient is a 62-year-old -[place] female who arrives in the emergency department via EMS. She states that at about 3 AM, she felt like she had to have a bowel movement but was only able to pass a small amount of hard stool. She states she has been constipated for the past several days. She began getting diaphoretic and generally weak and very nauseated. She states she has had similar symptoms in the past, and states she was hospitalized here several years ago for this. She has not had any actual vomiting. She denies any chest pain or shortness of breath. She does feel generally weak and "sick" all over. She has not had any fevers or chills, and denies any urinary symptoms. There are no alleviating or exacerbating factors to the patient's symptoms. She does admit to some generalized abdominal pain all over her abdomen. Review of Systems Review of Systems Constitutional: Denies fever or chills [] Eyes: Denies change in visual acuity, redness, or eye pain [] HENT: Denies nasal congestion or sore throat [] Respiratory: Denies cough or shortness of breath [] Cardiovascular: The patient denies any shortness of breath, chest pain, palpitations, or orthopnea [] GI: No additional information not addressed in HPI [] : Denies dysuria or hematuria [] Musculoskeletal: Denies back pain or joint pain [] Integument: Denies rash or skin lesions [] Neurologic: Denies headache, focal weakness or sensory changes [] Endocrine: Denies polyuria or polydipsia [] All other systems were reviewed and found to be within normal limits, except as documented in this note. Current Medications Current Medications Current Medications Medications (Trade) Dose Ordered Sig/Jani Start Time Stop Time Status Last Admin Dose Admin Ketorolac Tromethamine (Toradol 30mg Vial) 30 mg 1X ONCE 03/15/18 08:45 03/15/18 08:46 DC Ondansetron HCl (Zofran) 4 mg 1X ONCE 03/15/18 07:00 03/15/18 07:01 DC 03/15/18 07:20 4 MG Sodium Monofluorophosphate (Fleet Adult) 133 ml 1X ONCE 03/15/18 08:45 03/15/18 08:46 DC Sodium Chloride 1,000 ml @ 1,000 mls/hr Q1H 03/15/18 06:56 03/15/18 07:55 DC 03/15/18 07:22 1,000 MLS/HR Allergies Allergies Allergies Coded Allergies Type Severity Reaction Last Updated Verified Iodinated Contrast- Oral and IV Dye Allergy Intermediate Hives 12/16/15 Yes losartan Allergy Intermediate breaks out 02/20/17 Yes lisinopril Adverse Reaction Intermediate COUGH 12/16/15 Yes Physical Exam Physical Exam PHYSICAL EXAM: CONSTITUTIONAL: Well developed, well nourished HEAD: normocephalic, atraumatic EENT: PERRL, EOMI. Conjunctivae normal color, sclerae non-icteric; moist mucous membranes. NECK: Supple, non-tender; no meningismus. LUNGS: Lungs CTA, breathing even and unlabored. Normal air movement. HEART: Regular rate and rhythm, no murmur CHEST: No deformity; non-tender ABDOMEN: The abdomen is soft, bowel sounds are diminished, there is no reproducible tenderness to palpation of the abdomen, there is no rebound or guarding, no masses or bruits. EXTREM: Normal ROM; no deformity, no calf tenderness. Normal pulses palpable in all extremities. There is no pedal edema. SKIN: No rash; no diaphoresis NEURO: Alert; normal speech and cognition; CN's grossly intact; strength grossly intact without focal deficit. BACK: No CVA TTP. RECTAL EXAM: There is a small amount of hard brown stool in the upper aspect of the rectal vault, no other abnormalities noted. Exam was performed in the presence of LENA Parra. Current Patient Data Vital Signs Vital Signs Date Time Temp Pulse Resp B/P (MAP) Pulse Ox O2 Delivery O2 Flow Rate FiO2 03/15/18 06:54 98.0 74 24 176/85 (115) 100 Room Air 98.0 Lab Values Laboratory Tests Test 03/15/18 06:58 03/15/18 07:00 03/15/18 07:15 03/15/18 08:38 White Blood Count 7.9 x10^3/uL (4.0-11.0) Red Blood Count 4.73 x10^6/uL (3.50-5.40) Hemoglobin 13.9 g/dL (12.0-15.5) Hematocrit 39.0 % (36.0-47.0) Mean Corpuscular Volume 82 fL (79-100) Mean Corpuscular Hemoglobin 29 pg (25-35) Mean Corpuscular Hemoglobin Concent 36 g/dL (31-37) Red Cell Distribution Width 12.8 % (11.5-14.5) Platelet Count 282 x10^3/uL (140-400) Neutrophils (%) (Auto) 61 % (31-73) Lymphocytes (%) (Auto) 29 % (24-48) Monocytes (%) (Auto) 7 % (0-9) Eosinophils (%) (Auto) 2 % (0-3) Basophils (%) (Auto) 1 % (0-3) Neutrophils # (Auto) 4.8 x10^3uL (1.8-7.7) Lymphocytes # (Auto) 2.3 x10^3/uL (1.0-4.8) Monocytes # (Auto) 0.6 x10^3/uL (0.0-1.1) Eosinophils # (Auto) 0.1 x10^3/uL (0.0-0.7) Basophils # (Auto) 0.0 x10^3/uL (0.0-0.2) Prothrombin Time 14.1 SEC (11.7-14.0) H Prothrombin Time INR 1.1 (0.8-1.1) Sodium Level 144 mmol/L (136-145) Potassium Level 3.4 mmol/L (3.5-5.1) L Chloride Level 107 mmol/L (98-107) Carbon Dioxide Level 27 mmol/L (21-32) Anion Gap 10 (6-14) Blood Urea Nitrogen 10 mg/dL (7-20) Creatinine 1.1 mg/dL (0.6-1.0) H Estimated GFR (Cockcroft-Gault) 60.5 BUN/Creatinine Ratio 9 (6-20) Glucose Level 151 mg/dL (70-99) H Lactic Acid Level 1.7 mmol/L (0.4-2.0) Calcium Level 9.7 mg/dL (8.5-10.1) Magnesium Level 1.9 mg/dL (1.8-2.4) Total Bilirubin 0.5 mg/dL (0.2-1.0) Aspartate Amino Transferase (AST) 21 U/L (15-37) Alanine Aminotransferase (ALT) 39 U/L (14-59) Alkaline Phosphatase 134 U/L (46-116) H Troponin I Quantitative < 0.017 ng/mL (0.000-0.055) DK-Toa-P-Type Natriuretic Peptide 20 pg/mL (0-124) Total Protein 7.5 g/dL (6.4-8.2) Albumin 3.6 g/dL (3.4-5.0) Albumin/Globulin Ratio 0.9 (1.0-1.7) L Lipase 80 U/L (73-393) Thyroid Stimulating Hormone (TSH) 0.941 uIU/mL (0.358-3.74) Free Thyroxine 1.10 ng/dL (0.76-1.46) Stool Occult Blood Negative (NEG) Glucose (Fingerstick) 133 mg/dL (70-99) H Urine Collection Type Unknown Urine Color Yellow Urine Clarity Clear Urine pH 7.0 Urine Specific [place] 1.010 Urine Protein Negative mg/dL (NEG-TRACE) Urine Glucose (UA) Negative mg/dL (NEG) Urine Ketones (Stick) Negative mg/dL (NEG) Urine Blood Negative (NEG) Urine Nitrite Negative (NEG) Urine Bilirubin Negative (NEG) Urine Urobilinogen Dipstick 1.0 mg/dL (0.2 mg/dL) Urine Leukocyte Esterase Negative (NEG) Urine RBC 0 /HPF (0-2) Urine WBC 0 /HPF (0-4) Urine Bacteria Few /HPF (0-FEW) Laboratory Tests 03/15/18 06:58 Laboratory Tests 03/15/18 06:58 EKG EKG [Normal sinus rhythm at a rate of 72 beats for minute, left axis deviation, normal intervals, nonspecific ST/T changes.] Radiology/Procedures Radiology/Procedures [PROCEDURE: CT ABDOMEN PELVIS WO CONTRAST CT abdomen and pelvis without contrast 03/15/2018 Clinical Indication: Abdominal pain Comparison: CT abdomen pelvis 09/08/2015 Technique: Multiple CT images of the abdomen and pelvis were obtained without contrast. *One or more of the following individualized dose reduction techniques were utilized for this examination: 1. Automated exposure control. 2. Adjustment of the mA and/or kV according to patient size. 3. Use of iterative reconstruction technique. Findings: Evaluation of the solid abdominopelvic viscera, vasculature and lymphadenopathy are limited in the absence of intravenous contrast. Heart size is normal. Visualized lung bases are clear. There is mild diffuse hepatic steatosis. Cholelithiasis in a nondilated gallbladder. Unenhanced contours of the spleen, adrenal glands, pancreas and kidneys are grossly unremarkable. Abdominal aorta is normal in caliber with mild calcified atheromatous disease. Small and large bowel loops are normal in caliber without obstruction. Appendix is not discretely identified, however no secondary findings of appendicitis of the base of the cecum. No abdominal free fluid or pneumoperitoneum. Pelvis is limited in evaluation due to artifact from right hip arthroplasty. Urinary bladder and uterus grossly unremarkable. There is minimal today's thickening subcutaneous stranding in the anterior lower abdomen which may be injection site. IMPRESSION: 1. No noncontrast CT evidence of acute abdominal or pelvic process. 2. Mild hepatic steatosis. 3. Cholelithiasis. ] Course & Med Decision Making Course & Med Decision Making Pertinent Labs and Imaging studies reviewed. (See chart for details) [9:10 AM: The patient's condition remained stable. She had a bowel movement and is feeling much better, her symptoms have resolved. She has having no pain at this time. I discussed importance of close PCP follow-up, the daily use of stool softeners and laxatives as needed, and we discussed return precautions.] Dragon Disclaimer Dragon Disclaimer This electronic medical record was generated, in whole or in part, using a voice recognition dictation system. Departure Departure Impression: Primary Impression: Abdominal pain Additional Impression: Constipation Disposition: 01 HOME, SELF-CARE Condition: STABLE Referrals: HESHAM BEY MD (PCP) Patient Instructions: Abdominal Pain, Constipation, Adult Problem Qualifiers HESHAM BARCENAS MD Mar 15, 2018 07:00
[2018-03-15 07:13] LABS: BASO % 1 % (0-3); EOS # 0.1 x10^3/uL (0.0-0.7); EOS % 2 % (0-3); HEMOGLOBIN 13.9 g/dL (12.0-15.5); LYMPH # 2.3 x10^3/uL (1.0-4.8); LYMPH % 29 % (24-48); MEAN CORPUSCULAR HEMOGLOBIN 29 pg (25-35); MEAN CORPUSCULAR HGB CONC 36 g/dL (31-37); MEAN CORPUSCULAR VOLUME 82 fL (79-100); MONO # 0.6 x10^3/uL (0.0-1.1); MONO % 7 % (0-9); NEUT # 4.8 x10^3uL (1.8-7.7); NEUT % 61 % (31-73); PLATELET COUNT 282 x10^3/uL (140-400); RED BLOOD COUNT 4.73 x10^6/uL (3.50-5.40); RED CELL DISTRIBUTION WIDTH 12.8 % (11.5-14.5); WHITE BLOOD COUNT 7.9 x10^3/uL (4.0-11.0)
[2018-03-15 07:32] LABS: CALCIUM 9.7 mg/dL (8.5-10.1); CREATININE 1.1 mg/dL (0.6-1.0); GFR 60.5; POTASSIUM 3.4 mmol/L (3.5-5.1)
[2018-03-15 07:34] LABS: PROTHROMBIN TIME PATIENT 14.1 SEC (11.7-14.0)
[2018-03-15 07:38] LABS: ALBUMIN 3.6 g/dL (3.4-5.0); ALBUMIN/GLOBULIN RATIO 0.9 (1.0-1.7); MAGNESIUM 1.9 mg/dL (1.8-2.4); TOTAL BILIRUBIN 0.5 mg/dL (0.2-1.0); TOTAL PROTEIN 7.5 g/dL (6.4-8.2)
[2018-03-15 08:05] LABS: FECAL OB PT NEGATIVE (NEG)
--- NOTE | 2018-03-15 08:24 | RAD ---
CT abdomen and pelvis without contrast 03/15/2018 Clinical Indication: Abdominal pain Comparison: CT abdomen pelvis 09/08/2015 Technique: Multiple CT images of the abdomen and pelvis were obtained without contrast. *One or more of the following individualized dose reduction techniques were utilized for this examination: 1. Automated exposure control. 2. Adjustment of the mA and/or kV according to patient size. 3. Use of iterative reconstruction technique. Findings: Evaluation of the solid abdominopelvic viscera, vasculature and lymphadenopathy are limited in the absence of intravenous contrast. Heart size is normal. Visualized lung bases are clear. There is mild diffuse hepatic steatosis. Cholelithiasis in a nondilated gallbladder. Unenhanced contours of the spleen, adrenal glands, pancreas and kidneys are grossly unremarkable. Abdominal aorta is normal in caliber with mild calcified atheromatous disease. Small and large bowel loops are normal in caliber without obstruction. Appendix is not discretely identified, however no secondary findings of appendicitis of the base of the cecum. No abdominal free fluid or pneumoperitoneum. Pelvis is limited in evaluation due to artifact from right hip arthroplasty. Urinary bladder and uterus grossly unremarkable. There is minimal today's thickening subcutaneous stranding in the anterior lower abdomen which may be injection site. IMPRESSION: 1. No noncontrast CT evidence of acute abdominal or pelvic process. 2. Mild hepatic steatosis. 3. Cholelithiasis. Electronically signed by: Nitin Diane MD (03/15/2018 8:20 AM) [facility]
[2018-03-15] MEDS ORDERED: KETOROLAC 30 MG/ML VIAL. IV ONE (08:45)
[2018-03-15] MEDS ORDERED: SODIUM PHOSPHATES 19/7GM 133 ML ENEMA. PR ONE (08:45)
[2018-03-15 08:47] LABS: BILIRUBIN,URINE NEGATIVE (NEG); CLARITY,URINE CLEAR; COLOR,URINE YELLOW; NITRITE,URINE NEGATIVE (NEG); PROTEIN,URINE NEGATIVE (NEG-TRACE)
[2018-03-15 09:06] LABS: BACTERIA,URINE FEW /HPF (0-FEW); RBC,URINE 0 /HPF (0-2); WBC,URINE 0 /HPF (0-4)
[2018-03-15 09:21] VITALS: BP 171/79
--- NOTE | 2018-03-15 17:53 | EKG ---
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
== END 2018-03-15 09:30 | disposition home or self-care (01) ==
LOC: ER 06:54
DX: K59.00 Constipation, unspecified (principal); R10.84 Generalized abdominal pain; R11.0 Nausea; F32.9 Major depressive disorder, single episode, unspecified; E78.00 Pure hypercholesterolemia, unspecified; I10 Essential (primary) hypertension; E11.40 Type 2 diabetes mellitus with diabetic neuropathy, unspecified; G89.29 Other chronic pain; Z90.710 Acquired absence of both cervix and uterus; Z96.641 Presence of right artificial hip joint; R61 Generalized hyperhidrosis
CPT/HCPCS: 36415; 74176; 80053; 81001; 82274; 82962; 83605; 83690; 83735; 83880; 84439; 84443; 84484; 85025; 85610; 93005; 96374; 96375; 99284; J1885; J2405; J7030

== ENCOUNTER 2018-05-03 11:51 | Emergency (ER) | payer OTHER ==
[~2018-05-03] VITALS: Ht 147.3 cm; Wt 83.9 kg
[~2018-05-03 11:51] MED LIST changes: +AMLO5TAB10 PO; -AMLO5TAB7 PO; +ATOR10TA60 PO; +ATOR20TA58 PO; -GABA-586 PO; +GABA300C18 PO; -INSU100V5 IJ; +INSU100V5 SQ; +TRIA1TAB3 PO
[2018-05-03] MEDS ORDERED: fentaNYL PF VIAL 100 MCG/2 ML VIAL IV ONE (12:45)
[2018-05-03 12:49] LABS: BASO % 1 % (0-3); EOS # 0.2 x10^3/uL (0.0-0.7); EOS % 3 % (0-3); LYMPH # 2.3 x10^3/uL (1.0-4.8); LYMPH % 30 % (24-48); MEAN CORPUSCULAR HEMOGLOBIN 30 pg (25-35); MEAN CORPUSCULAR HGB CONC 35 g/dL (31-37); MEAN CORPUSCULAR VOLUME 85 fL (79-100); MONO # 0.6 x10^3/uL (0.0-1.1); MONO % 8 % (0-9); NEUT # 4.5 x10^3uL (1.8-7.7); NEUT % 59 % (31-73); PLATELET COUNT 290 x10^3/uL (140-400); RED BLOOD COUNT 4.02 x10^6/uL (3.50-5.40); RED CELL DISTRIBUTION WIDTH 13.7 % (11.5-14.5); WHITE BLOOD COUNT 7.7 x10^3/uL (4.0-11.0)
[2018-05-03 13:07] LABS: CALCIUM 10.1 mg/dL (8.5-10.1); CREATININE 1.6 mg/dL (0.6-1.0); GFR 39.3; POTASSIUM 4.4 mmol/L (3.5-5.1)
[2018-05-03 13:13] LABS: ALBUMIN 3.5 g/dL (3.4-5.0); ALBUMIN/GLOBULIN RATIO 0.9 (1.0-1.7); TOTAL BILIRUBIN 0.2 mg/dL (0.2-1.0); TOTAL PROTEIN 7.6 g/dL (6.4-8.2)
--- NOTE | 2018-05-03 13:35 | RAD ---
RS Compliance Statement: One or more of the following individualized dose reduction techniques were utilized for this examination: 1. Automated exposure control 2. Adjustment of the mA and/or kV according to patient size 3. Use of iterative reconstruction technique CT HEAD WITHOUT CONTRAST History: headache, postop Comparison: CT head without contrast April 17, 2018. Procedure: Axial images are obtained of the head from the skull base through the vertex without IV contrast. Findings: The ventricles and sulci are normal for the patient's age. No mass-effect, midline shift, hemorrhage, extra-axial fluid collection, or obvious acute infarction is identified. Basilar cisterns are patent. Redemonstrated prior right frontotemporal craniectomy with prosthesis. There is beam hardening artifact from the prosthesis that limits evaluation of the adjacent brain parenchyma. There is underlying slight dural thickening, unchanged from prior study. The visualized paranasal sinuses are clear. Mastoid air cells are well aerated. IMPRESSION: No acute intracranial abnormality. Electronically signed by: Armando Gordon MD (05/03/2018 1:31 PM) [facility]
[2018-05-03] MEDS ORDERED: IV NORMAL SALINE 1000ML BAG 1,000 ML IV ONE (13:45)
[2018-05-03 13:56] LABS: BILIRUBIN,URINE NEGATIVE (NEG); COLOR,URINE YELLOW; NITRITE,URINE NEGATIVE (NEG); PH,URINE 7.5; PROTEIN,URINE NEGATIVE (NEG-TRACE); UROBILINOGEN,URINE 0.2 mg/dL (0.2 mg/dL)
[2018-05-03 14:00] VITALS: BP 188/80
[2018-05-03 14:04] LABS: BACTERIA,URINE FEW /HPF (0-FEW); CLARITY,URINE CLEAR; RBC,URINE 0 /HPF (0-2); SQUAMOUS EPITHELIAL CELL,UR FEW /LPF; WBC,URINE OCC /HPF (0-4)
--- NOTE | 2018-05-03 16:25 | PHYS DOC ---
Past Medical History Past Medical History: Constipation, Depression, Diabetes-Type II, High Cholesterol, Hypertension, Other Additional Past Medical Histor: diabetic neuropathy,chronic rt hip pain Past Surgical History: Hip Replacement, Hysterectomy, Other Additional Past Surgical Histo: R hip, CRANI WITH BRAIN MASS REMOVAL Alcohol Use: None Drug Use: None Adult General Chief Complaint Chief Complaint: HEADACHE HPI HPI Patient is a 62 year old F WITH chief complaint oF BIBA with headache. She's had this headache for about 3-4 days she had brain surgery at the end of March it was a craniotomy with a plate placed for a bone lesion. She was doing well she get admitted to [facility] about 2 weeks ago and had some apparent sort of seizure activity she says atttributed to tramadol. she stopped that and since then has ahd increasing pain but he last three days the pain is worse. no fever no trauma. taking oxycodone for pain. no dysuria. no other symptoms. localized to recent surgical area, radiates diffusely. Review of Systems Review of Systems Constitutional: Denies fever or chills [] Eyes: Denies change in visual acuity, redness, or eye pain [] HENT: Denies nasal congestion or sore throat [] Respiratory: Denies cough or shortness of breath [] Cardiovascular: No additional information not addressed in HPI [] Musculoskeletal: Denies back pain or joint pain [] All other systems were reviewed and found to be within normal limits, except as documented in this note. Current Medications Current Medications Current Medications Medications (Trade) Dose Ordered Sig/[facility] Start Time Stop Time Status Last Admin Dose Admin Fentanyl Citrate (Fentanyl 2ml Vial) 50 mcg 1X ONCE 05/03/18 12:45 05/03/18 12:46 DC 05/03/18 13:10 50 MCG Sodium Chloride 1,000 ml @ 1,000 mls/hr 1X ONCE 05/03/18 13:45 05/03/18 14:44 DC 05/03/18 13:45 1,000 MLS/HR Allergies Allergies Allergies Coded Allergies Type Severity Reaction Last Updated Verified Iodinated Contrast- Oral and IV Dye Allergy Intermediate Hives 12/16/15 Yes losartan Allergy Intermediate breaks out 02/20/17 Yes lisinopril Adverse Reaction Intermediate COUGH 12/16/15 Yes Physical Exam Physical Exam Constitutional: Well developed, well nourished, no acute distress, non-toxic appearance. [] HENT: Normocephalic, well healing surgical incision noted. Eyes: PERRLA, EOMI, conjunctiva normal, no discharge. [] Neck: Normal range of motion, no tenderness, supple, no stridor. [] Cardiovascular:Heart rate regular rhythm, no murmur [] Lungs & Thorax: Bilateral breath sounds clear to auscultation [] Abdomen: Bowel sounds normal, soft, no tenderness, no masses, no pulsatile masses. [] Skin: Warm, dry, no erythema, no rash. [] Back: No tenderness, no CVA tenderness. [] Extremities: No tenderness, no cyanosis, no clubbing, ROM intact, no edema. [] Neurologic: Alert and oriented X 3, normal motor function, normal sensory function, no focal deficits noted. [] Psychologic: Affect normal, judgement normal, mood normal. [] Current Patient Data Vital Signs Vital Signs Date Time Temp Pulse Resp B/P (MAP) Pulse Ox O2 Delivery O2 Flow Rate FiO2 05/03/18 14:00 72 99 05/03/18 13:10 16 05/03/18 11:51 98.3 133/77 (95) Room Air 98.3 Lab Values Laboratory Tests Test 05/03/18 12:07 05/03/18 13:45 White Blood Count 7.7 x10^3/uL (4.0-11.0) Red Blood Count 4.02 x10^6/uL (3.50-5.40) Hemoglobin 12.0 g/dL (12.0-15.5) Hematocrit 34.0 % (36.0-47.0) L Mean Corpuscular Volume 85 fL (79-100) Mean Corpuscular Hemoglobin 30 pg (25-35) Mean Corpuscular Hemoglobin Concent 35 g/dL (31-37) Red Cell Distribution Width 13.7 % (11.5-14.5) Platelet Count 290 x10^3/uL (140-400) Neutrophils (%) (Auto) 59 % (31-73) Lymphocytes (%) (Auto) 30 % (24-48) Monocytes (%) (Auto) 8 % (0-9) Eosinophils (%) (Auto) 3 % (0-3) Basophils (%) (Auto) 1 % (0-3) Neutrophils # (Auto) 4.5 x10^3uL (1.8-7.7) Lymphocytes # (Auto) 2.3 x10^3/uL (1.0-4.8) Monocytes # (Auto) 0.6 x10^3/uL (0.0-1.1) Eosinophils # (Auto) 0.2 x10^3/uL (0.0-0.7) Basophils # (Auto) 0.0 x10^3/uL (0.0-0.2) Sodium Level 137 mmol/L (136-145) Potassium Level 4.4 mmol/L (3.5-5.1) Chloride Level 100 mmol/L (98-107) Carbon Dioxide Level 27 mmol/L (21-32) Anion Gap 10 (6-14) Blood Urea Nitrogen 19 mg/dL (7-20) Creatinine 1.6 mg/dL (0.6-1.0) H Estimated GFR (Cockcroft-Gault) 39.3 BUN/Creatinine Ratio 12 (6-20) Glucose Level 427 mg/dL (70-99) H Calcium Level 10.1 mg/dL (8.5-10.1) Total Bilirubin 0.2 mg/dL (0.2-1.0) Aspartate Amino Transferase (AST) 20 U/L (15-37) Alanine Aminotransferase (ALT) 50 U/L (14-59) Alkaline Phosphatase 156 U/L (46-116) H Total Protein 7.6 g/dL (6.4-8.2) Albumin 3.5 g/dL (3.4-5.0) Albumin/Globulin Ratio 0.9 (1.0-1.7) L Urine Collection Type Unknown Urine Color Yellow Urine Clarity Clear Urine pH 7.5 Urine Specific [place] 1.025 Urine Protein Negative mg/dL (NEG-TRACE) Urine Glucose (UA) >=1000 mg/dL (NEG) Urine Ketones (Stick) Negative mg/dL (NEG) Urine Blood Negative (NEG) Urine Nitrite Negative (NEG) Urine Bilirubin Negative (NEG) Urine Urobilinogen Dipstick 0.2 mg/dL (0.2 mg/dL) Urine Leukocyte Esterase Negative (NEG) Urine RBC 0 /HPF (0-2) Urine WBC Occ /HPF (0-4) Urine Squamous Epithelial Cells Few /LPF Urine Bacteria Few /HPF (0-FEW) Laboratory Tests 05/03/18 12:07 Laboratory Tests 05/03/18 12:07 EKG EKG [] Radiology/Procedures Radiology/Procedures [] Impressions: CT HEAD WITHOUT CONTRAST History: headache, postop Comparison: CT head without contrast April 17, 2018. Procedure: Axial images are obtained of the head from the skull base through the vertex without IV contrast. Findings: The ventricles and sulci are normal for the patient's age. No mass-effect, midline shift, hemorrhage, extra-axial fluid collection, or obvious acute infarction is identified. Basilar cisterns are patent. Redemonstrated prior right frontotemporal craniectomy with prosthesis. There is beam hardening artifact from the prosthesis that limits evaluation of the adjacent brain parenchyma. There is underlying slight dural thickening, unchanged from prior study. The visualized paranasal sinuses are clear. Mastoid air cells are well aerated. IMPRESSION: No acute intracranial abnormality. Electronically signed by: Armando Gardner MD (05/03/2018 1:31 PM) [facility] DICTATED and SIGNED BY: ARMANDO GARDNER MD DATE: 05/03/18 1323 Course & Med Decision Making Course & Med Decision Making Pertinent Labs and Imaging studies reviewed. 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 Neck is supple no fever well-appearing no lateralizing neurologic signs CT head is negative acute I did discuss with Dr. Jaramillo's nurse practitioner Nichol over the phone who knows this patient very well, she looked at the CT scan with her attending and he agrees that this is likely not neurosurgical related okay for discharge home from their perspective they can follow up in clinic.[] Dragon Disclaimer Dragon Disclaimer This electronic medical record was generated, in whole or in part, using a voice recognition dictation system. Departure Departure Impression: Primary Impression: Headache Disposition: HOME, SELF-CARE Condition: STABLE Patient Instructions: Headache, FAQs DONTA ANTONY MD May 03, 2018 16:25
[2018-06-09] MEDS ORDERED: OXYC5CAP PO (21:55)
[2018-06-09] MEDS ORDERED: POLY17PO29 PO (22:00)
[2018-06-10] MEDS ORDERED: LEVE500T56 PO (07:00)
[2018-06-11] MEDS ORDERED: INSU100V8 SQ (08:35)
[2018-06-11] MEDS ORDERED: GABA300C18 PO (08:35)
[2018-06-11] MEDS ORDERED: LEVE500T56 PO (08:35)
== END 2018-05-03 15:03 | disposition home or self-care (01) ==
LOC: ER 11:51
DX: R51 Headache (principal); I10 Essential (primary) hypertension; E11.9 Type 2 diabetes mellitus without complications; E78.00 Pure hypercholesterolemia, unspecified; G89.29 Other chronic pain; M25.551 Pain in right hip; Z90.710 Acquired absence of both cervix and uterus; Z88.8 Allergy status to other drugs, medicaments and biological substances; Z91.041 Radiographic dye allergy status
CPT/HCPCS: 36415; 70450; 80053; 81001; 85025; 96374; 99284; J3010; J7030

== ENCOUNTER → 2018-06-01 | Outpatient (CLI) | payer OTHER ==
[2018-05-03 14:00] VITALS: BP 188/80
[~2018-06-01] MED LIST changes: +INSU100V5 IJ; -INSU100V5 SQ
--- NOTE | 2018-06-01 11:44 | RAD ---
CT HEAD INDICATION: Meningioma, postop COMPARISON: 05/03/2018 Exposure: One or more of the following individualized dose reduction techniques were utilized for this examination: 1. Automated exposure control 2. Adjustment of the mA and/or kV according to patient size 3. Use of iterative reconstruction technique TECHNIQUE: 5 mm contiguous axial images were obtained from the skull base to the vertex in both bone and soft tissue algorithm. FINDINGS: Mild bilateral periventricular white matter hypodensities likely chronic small vessel ischemic disease. Prior right frontotemporal craniectomy with prosthesis is again identified. There is beam hardening artifact from the prosthesis which limits evaluation. No evidence of acute intracranial hemorrhage. No extra-axial fluid collections. No mass effect or midline shift. Ventricular size is appropriate. Basal cisterns are patent. No fractures identified.Bceker-white differentiation is preserved.Globes and orbits are within normal limits. Paranasal sinuses and mastoid air cells are clear. IMPRESSION: 1. No acute intracranial findings. Electronically signed by: Deangelo Potter MD (06/01/2018 11:39 AM) [place] [id number]
== END | disposition home or self-care (01) ==
LOC: CT 10:29
PROVIDERS: ATTEND Neurological Surgery
DX: D32.9 Benign neoplasm of meninges, unspecified (principal)
CPT/HCPCS: 70450

== ENCOUNTER 2018-06-18 12:59 | Inpatient (IN) | payer OTHER ==
[~2018-06-18] VITALS: Ht 147.3 cm; Wt 83.9 kg
[~2018-06-18 12:59] MED LIST changes: -INSU100V5 IJ; +INSU100V5 SQ; +LEVE500T56 PO; +OXYC5CAP PO; +POLY17PO29 PO
[2018-06-18 13:57] LABS: BASO # 0.1 x10^3/uL (0.0-0.2); BASO % 1 % (0-3); EOS # 0.2 x10^3/uL (0.0-0.7); EOS % 2 % (0-3); HEMATOCRIT 37.7 % (36.0-47.0); HEMOGLOBIN 12.9 g/dL (12.0-15.5); LYMPH # 1.9 x10^3/uL (1.0-4.8); LYMPH % 22 % (24-48); MEAN CORPUSCULAR HEMOGLOBIN 29 pg (25-35); MEAN CORPUSCULAR HGB CONC 34 g/dL (31-37); MEAN CORPUSCULAR VOLUME 84 fL (79-100); MONO # 0.6 x10^3/uL (0.0-1.1); MONO % 7 % (0-9); NEUT # 5.8 x10^3uL (1.8-7.7); NEUT % 68 % (31-73); PLATELET COUNT 295 x10^3/uL (140-400); RED BLOOD COUNT 4.48 x10^6/uL (3.50-5.40); RED CELL DISTRIBUTION WIDTH 12.5 % (11.5-14.5); WHITE BLOOD COUNT 8.5 x10^3/uL (4.0-11.0)
[2018-06-18 14:42] LABS: CALCIUM 9.5 mg/dL (8.5-10.1); CREATININE 1.2 mg/dL (0.6-1.0); GFR 54.6; POTASSIUM 4.4 mmol/L (3.5-5.1)
--- NOTE | 2018-06-18 14:53 | RAD ---
CT HEAD WO CONTRAST History: Seizures, history of brain tumor and surgery, headache Comparison: 06/09/2018 Technique: Noncontrast CT imaging was performed of the head. Exposure: One or more of the following individualized dose reduction techniques were utilized for this examination: 1. Automated exposure control 2. Adjustment of the mA and/or kV according to patient size 3. Use of iterative reconstruction technique. Findings: No convincing acute intracranial hemorrhage is identified. There is again artifact created by metallic plate at site of right frontal parietal temporal craniectomy defect. There is no new midline shift or intra-axial mass effect. Ventricular size is within normal limits. There is minimal patchy density of the right mastoid air cells inferiorly as seen previously. There is again focus of extra-axial calcification at the left frontal vertex. Impression: 1. No acute intracranial abnormality is identified, somewhat limited evaluation of the right parenchyma due to artifact. There is again focus of extra-axial calcification left frontal vertex which could be due to sequela of meningioma. Electronically signed by: Clemente Burr MD (06/18/2018 2:51 PM) [id number]
[2018-06-18] MEDS ORDERED: ONDANSETRON PF 4 MG/2 ML VIAL. IV PRN (16:45)
[2018-06-18] MEDS ORDERED: MORPHINE SULFATE 2 MG/ML VIAL. IV PRN (16:45)
[2018-06-18] MEDS ORDERED: diphenhydrAMINE 50 MG/ML VIAL IVP ONE (17:00)
[2018-06-18] MEDS ORDERED: METOCLOPRAMIDE HCL 10 MG/2 ML VIAL. IV ONE (17:00)
--- NOTE | 2018-06-18 17:07 | PHYS DOC ---
Past Medical History Past Medical History: Constipation, Depression, Diabetes-Type II, High Cholesterol, Hypertension, Other Additional Past Medical Histor: diabetic neuropathy,chronic rt hip pain, BRAIN SURGERY D/T TUMORS Past Surgical History: Hip Replacement, Hysterectomy, Other Additional Past Surgical Histo: R hip, CRANI WITH BRAIN MASS REMOVAL Alcohol Use: Sober Drug Use: None Adult General Chief Complaint Chief Complaint: HEADACHE HPI HPI This is a pleasant 63-year-old female presenting to the emergency department today with a headache and reporting multiple seizures last night. 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 benton and 13 April of last year. She been placed on Keppra 750 mg twice a day by our neurology team. She did have a recent brain MRI on the of this month that was unremarkable. Currently she denies any numbness weakness tingling or slurred speech. Review of systems is negative for vision changes or double vision chest pain or shortness of breath. All other review of systems is negative unless otherwise noted in history of present illness. ED course: 63-year-old female complaining of multiple seizures last night coming in with a severe headache. On arrival she is afebrile with normal heart rate. Blood pressure is mildly elevated. On examination her neurologic exam is unremarkable. Chemistry panel shows hyperglycemia. CBC is unremarkable other than a mild anemia. Head CT shows no acute pathology. I spoke with Dr. campoverde who recommends admission to the hospital for monitoring. We will admit the patient to Dr. Bey the patient's PCP. We will give Reglan and Benadryl. Review of Systems Review of Systems SEE ABOVE. Allergies Allergies Allergies Coded Allergies Type Severity Reaction Last Updated Verified Iodinated Contrast- Oral and IV Dye Allergy Intermediate Hives 12/16/15 Yes losartan Allergy Intermediate breaks out 02/20/17 Yes lisinopril Adverse Reaction Intermediate COUGH 12/16/15 Yes Physical Exam Physical Exam SEE ABOVE Constitutional: Well developed, well nourished, no acute distress, non-toxic appearance. HENT: Normocephalic, atraumatic, bilateral external ears normal, oropharynx moist, no oral exudates, nose normal. Eyes: PERRLA, EOMI, conjunctiva normal, no discharge. [] Neck: Normal range of motion, no tenderness, supple, no stridor. Cardiovascular:Heart rate regular rhythm, no murmur Lungs & Thorax: Bilateral breath sounds clear to auscultation [] Abdomen: Bowel sounds normal, soft, no tenderness, no masses, no pulsatile masses. Skin: Warm, dry, no erythema, no rash. Back: No tenderness, no CVA tenderness. Extremities: No tenderness, no cyanosis, no clubbing, ROM intact, no edema. [] Neurologic: Mental status: Awake oriented and alert x3 Cranial nerves: Extraocular movements intact, eyebrows laura bilaterally, smile symmetric, uvula elevation nl, shoulder shrug intact bilaterally, tongue protrusion normal DTRs: 2+ Sensation: equal and normal in all extremities Strength: 5/5 in upper and lower extremities bilaterally Psychologic: Affect normal, judgement normal, mood normal. [] Current Patient Data Vital Signs Vital Signs Date Time Temp Pulse Resp B/P (MAP) Pulse Ox O2 Delivery O2 Flow Rate FiO2 06/18/18 15:53 77 96 06/18/18 13:28 98.1 18 173/79 (110) Room Air 98.1 Lab Values Laboratory Tests Test 06/18/18 13:45 06/18/18 14:25 White Blood Count 8.5 x10^3/uL (4.0-11.0) Red Blood Count 4.48 x10^6/uL (3.50-5.40) Hemoglobin 12.9 g/dL (12.0-15.5) Hematocrit 37.7 % (36.0-47.0) Mean Corpuscular Volume 84 fL (79-100) Mean Corpuscular Hemoglobin 29 pg (25-35) Mean Corpuscular Hemoglobin Concent 34 g/dL (31-37) Red Cell Distribution Width 12.5 % (11.5-14.5) Platelet Count 295 x10^3/uL (140-400) Neutrophils (%) (Auto) 68 % (31-73) Lymphocytes (%) (Auto) 22 % (24-48) L Monocytes (%) (Auto) 7 % (0-9) Eosinophils (%) (Auto) 2 % (0-3) Basophils (%) (Auto) 1 % (0-3) Neutrophils # (Auto) 5.8 x10^3uL (1.8-7.7) Lymphocytes # (Auto) 1.9 x10^3/uL (1.0-4.8) Monocytes # (Auto) 0.6 x10^3/uL (0.0-1.1) Eosinophils # (Auto) 0.2 x10^3/uL (0.0-0.7) Basophils # (Auto) 0.1 x10^3/uL (0.0-0.2) Sodium Level 140 mmol/L (136-145) Potassium Level 4.4 mmol/L (3.5-5.1) Chloride Level 102 mmol/L (98-107) Carbon Dioxide Level 28 mmol/L (21-32) Anion Gap 10 (6-14) Blood Urea Nitrogen 14 mg/dL (7-20) Creatinine 1.2 mg/dL (0.6-1.0) H Estimated GFR (Cockcroft-Gault) 54.6 Glucose Level 453 mg/dL (70-99) H Calcium Level 9.5 mg/dL (8.5-10.1) Laboratory Tests 06/18/18 13:45 Laboratory Tests 06/18/18 14:25 EKG EKG [] Radiology/Procedures Radiology/Procedures [] Course & Med Decision Making Course & Med Decision Making Pertinent Labs and Imaging studies reviewed. (See chart for details) [] Dragon Disclaimer Dragon Disclaimer This electronic medical record was generated, in whole or in part, using a voice recognition dictation system. Departure Departure Impression: Primary Impression: Headache Additional Impression: Seizure Disposition: ADMITTED INPATIENT Admitting Physician: Sebastien Bey Condition: STABLE Referrals: SEBASTIEN BEY MD (PCP) Problem Qualifiers RAY BAILON MD Jun 18, 2018 17:07
[2018-06-18] MEDS: IV NORMAL SALINE 1000ML BAG 1,000 ML IV SCH (17:27)
[2018-06-18 17:56] VITALS: BP 145/87
[2018-06-18] MEDS ORDERED: LEVE750T8 PO (18:35)
--- NOTE | 2018-06-18 18:50 | PDOC ---
PROGRESS NOTES Assessment Assessment seizure, partial seizure. Headaches. Right frontal skull base mass 3.3 x 1.6 cm with mass effect, s/p surgical treatment in 04/08. Left frontal 8 mm x 16 mm soft tissue mass. Intraosseous meningioma. Right calvarial lesion. Left UE and LE numbness. Hyperglycemia. DM. HTN. HLD. Gait disorder. Diabetic peripheral neuropathy. Obesity. RECOMMENDATIONS/PLAN: Continue Keppra 750 mg bid. Treat medical diseases. Continue Neurontin 300 mg tid. Continue Lipitor HS. Consult NS previously. EEG. Lab: see orders. Weight reduction. HCT on 06/18/18: No SAH or ICH. HISTORY OF JUSTIN PRESENT ILLNESS: This is a 63-y-old AA female patient with above medical and neurological diseases and seizure was recently in the hospital due to seizure. She came to the ER of [facility] today stating had increased seizures last night as focalized twitch movements around her left side of mouth multiple time and one time today. She also complained moderate headaches in her right frontal head. No MS changes, decreased vision, ataxia, projectile vomiting, or acute focalized sensory or motor deficits. Past Medical History Cardiovascular: HTN, Hyperlipidemia GI: Constipation, GERD Psych: Addictions ( in past crack cocaine and alcohol), Depression Musculoskeletal: Osteoarthritis ( particularly has right hip pain) Renal/: Hematuria, Other ( urinary retention) Endocrine: Diabetes Past Surgical History Cataract Removal, Other (Salpingectomy, oophorectomy, bilateral carpal tunnel, left meniscus repair) Family History Cancer Social History , lives with her son, no alcohol or tobacco at present, former abuser of these Allergies Coded Allergies: lodinated Contrast- Oral and IV Dye (Verified Allergy, Intermediate, Hives, ) Per pt, hives on arm and face after heart cath losartan (Verified Allergy, Intermediate, breaks out, 02/20/17) lisinopril (Verified Adverse Reaction, Intermediate, COUGH, 12/16/15) ROS Negative for fever, chills, weight loss, shortness of breath, chest pain, indigestion, hematochezia, melena, and dysuria. Full 14-point review of systems is negative. PHYSICAL EXAMINATION: General appearance in subacute distress. HEENT: Normocephalic and nontraumatic. Eyes, nose, ears, and throat are unremarkable. Neck is supple. No lymphadenopathy. No Crepitus. Cardiovascular: S1, S2, regular rate and rhythm. Pulmonary: Clear to auscultation bilaterally. Abdomen: Bowel sounds are positive. Abdomen is soft, nontender, and nondistended. Extremities: No rash, lesions, or edema. No restriction of range of motion NEUROLOGICAL EXAMINATION: Awake. Oriented to time, place and person. PERRL. EOMI. CN: no focal findings. Muscle tone: within normal. Muscle strength: 4+ DTR: 2 Plantar reflex: Neutral response bilaterally Gait: At her baseline walking. Sensory exam: Subjective numbness in left side UE and LE. No acute cerebellar signs elicited. F-T-N test fine. Objective Objective Vital Signs Date Time Temp Pulse Resp B/P (MAP) Pulse Ox O2 Delivery O2 Flow Rate FiO2 06/18/18 17:56 98.6 87 20 145/87 (106) 99 Nasal Cannula 98.6 Vitals Signs Vitals VS - Last 72 Hours, by Label Date Time Temp Pulse Resp B/P (MAP) Pulse Ox O2 Delivery O2 Flow Rate FiO2 06/18/18 17:56 98.6 87 20 145/87 (106) 99 Nasal Cannula 98.6 06/18/18 16:23 84 100 06/18/18 15:53 77 96 06/18/18 15:23 77 97 06/18/18 13:28 98.1 84 18 173/79 (110) 97 Room Air 98.1 Laboratory Laboratory Laboratory Tests Test 06/18/18 13:45 06/18/18 14:25 White Blood Count 8.5 x10^3/uL (4.0-11.0) Red Blood Count 4.48 x10^6/uL (3.50-5.40) Hemoglobin 12.9 g/dL (12.0-15.5) Hematocrit 37.7 % (36.0-47.0) Mean Corpuscular Volume 84 fL (79-100) Mean Corpuscular Hemoglobin 29 pg (25-35) Mean Corpuscular Hemoglobin Concent 34 g/dL (31-37) Red Cell Distribution Width 12.5 % (11.5-14.5) Platelet Count 295 x10^3/uL (140-400) Neutrophils (%) (Auto) 68 % (31-73) Lymphocytes (%) (Auto) 22 % (24-48) Monocytes (%) (Auto) 7 % (0-9) Eosinophils (%) (Auto) 2 % (0-3) Basophils (%) (Auto) 1 % (0-3) Neutrophils # (Auto) 5.8 x10^3uL (1.8-7.7) Lymphocytes # (Auto) 1.9 x10^3/uL (1.0-4.8) Monocytes # (Auto) 0.6 x10^3/uL (0.0-1.1) Eosinophils # (Auto) 0.2 x10^3/uL (0.0-0.7) Basophils # (Auto) 0.1 x10^3/uL (0.0-0.2) Sodium Level 140 mmol/L (136-145) Potassium Level 4.4 mmol/L (3.5-5.1) Chloride Level 102 mmol/L (98-107) Carbon Dioxide Level 28 mmol/L (21-32) Anion Gap 10 (6-14) Blood Urea Nitrogen 14 mg/dL (7-20) Creatinine 1.2 mg/dL (0.6-1.0) Estimated GFR (Cockcroft-Gault) 54.6 Glucose Level 453 mg/dL (70-99) Calcium Level 9.5 mg/dL (8.5-10.1) Medication Medications Current Medications Diphenhydramine HCl (Benadryl) 25 mg 1X ONCE IVP Last administered on at 17:30; Start 06/18/18 at 17:00; Stop 06/18/18 at 17:01; Status DC Metoclopramide HCl (Reglan Vial) 10 mg 1X ONCE IV Last administered on at 17:32; Start 06/18/18 at 17:00; Stop 06/18/18 at 17:01; Status DC Morphine Sulfate (Morphine Sulfate) 2 mg PRN Q2HR PRN IV PAIN; Start 06/18/18 at 16:45; Stop 06/19/18 at 16:44 Ondansetron HCl (Zofran) 4 mg PRN Q8HRS PRN IV NAUSEA/VOMITING; Start 06/18/18 at 16:45; Stop 06/19/18 at 16:44 Sodium Chloride 1,000 ml @ 80 mls/hr [id number] IV Last administered on at 17:27; Start 06/18/18 at 16:43; Stop 06/19/18 at 16:42 Comment Review of Relevant I have reviewed the following items rocío (where applicable) has been applied. BARBARA HYDE MD Jun 18, 2018 18:50
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
[2018-06-18 19:25] VITALS: BP 124/71
[2018-06-18] MEDS: oxyCODONE IR 5 MG TABLET PO PRN (20:49)
[2018-06-18] MEDS: LATANOPROST 0.005% OPHTH SOLUTION 2.5ML BOTTLE. OU SCH (20:49)
[2018-06-18] MEDS: GABAPENTIN 300 MG CAPSULE. PO SCH (20:49)
[2018-06-18] MEDS: ATORVASTATIN CALCIUM 10 MG TABLET. PO SCH (20:49)
[2018-06-18] MEDS: levETIRAcetam 500 MG TABLET PO SCH (20:49)
[2018-06-18] MEDS: POLYETHYLENE GLYCOL 3350 17 GM PACKET. PO SCH (20:50)
[2018-06-18 21:30] LABS: BARBITURATES NEG (NEG); BENZODIAZEPINES NEG (NEG); CANNABINOIDS NEG (NEG); COCAINE NEG (NEG); METHADONE NEG (NEG); OPIATES NEG (NEG); PHENCYCLIDINE NEG (NEG)
[2018-06-18 21:33] LABS: AMPHETAMINE/METHAMPHETAMINE NEG (NEG)
[2018-06-18] MEDS: INSULIN GLARGINE 300 UNITS/3 ML INSULN.PEN. SQ SCH (22:13)
[2018-06-18 23:20] VITALS: BP 110/64
[2018-06-19] MEDS: IV NORMAL SALINE 1000ML BAG 1,000 ML IV SCH (02:07)
[2018-06-19 03:20] VITALS: BP 111/69
[2018-06-19] MEDS: oxyCODONE IR 5 MG TABLET PO PRN (05:22)
[2018-06-19 05:34] LABS: BASO % 1 % (0-3); EOS # 0.2 x10^3/uL (0.0-0.7); EOS % 3 % (0-3); HEMATOCRIT 36.5 % (36.0-47.0); HEMOGLOBIN 12.2 g/dL (12.0-15.5); LYMPH # 2.3 x10^3/uL (1.0-4.8); LYMPH % 29 % (24-48); MEAN CORPUSCULAR HEMOGLOBIN 28 pg (25-35); MEAN CORPUSCULAR HGB CONC 34 g/dL (31-37); MEAN CORPUSCULAR VOLUME 83 fL (79-100); MONO # 0.5 x10^3/uL (0.0-1.1); MONO % 7 % (0-9); NEUT # 4.9 x10^3uL (1.8-7.7); NEUT % 61 % (31-73); PLATELET COUNT 277 x10^3/uL (140-400); RED BLOOD COUNT 4.39 x10^6/uL (3.50-5.40); RED CELL DISTRIBUTION WIDTH 12.8 % (11.5-14.5); WHITE BLOOD COUNT 7.9 x10^3/uL (4.0-11.0)
[2018-06-19 05:52] LABS: CALCIUM 9.2 mg/dL (8.5-10.1); CREATININE 1.1 mg/dL (0.6-1.0); GFR 60.3; POTASSIUM 3.3 mmol/L (3.5-5.1)
[2018-06-19 07:15] VITALS: BP 148/74
[2018-06-19] MEDS ORDERED: INSULIN LISPRO 300 UNITS/3 ML INSULN.PEN. SQ SCH (08:00)
--- NOTE | 2018-06-19 08:34 | PDOC ---
Provider Note Provider Note [id number] HESHAM BEY MD Jun 19, 2018 08:34
--- NOTE | 2018-06-19 08:54 | HP ---
ADMIT DATE: 06/18/2018 CHIEF COMPLAINT: Seizures. HISTORY OF PRESENT ILLNESS: A 63-year-old black female had craniotomy about a month ago that turned out to be a meningioma and since then has had focal seizures. CT scans have been unremarkable. An EEG showed a seizure focus. She has been on Keppra, the dose was increased about a week ago, but continues to have "seizures at home" and headaches. CT scan in the ER on admission was unremarkable, as were labwork studies. She denies any further trauma since admission. PAST MEDICAL HISTORY: Well documented in the old record, poorly controlled diabetes secondary mainly to dietary noncompliance, chronic pain before and after hip replacement and takes oxycodone on schedule. FAMILY HISTORY: Unremarkable. SOCIAL HISTORY: Nonsmoker, nondrinker, single, not employed. REVIEW OF SYSTEMS: No other complaints. OBJECTIVE: ENT: All within normal limits. NECK: No masses, nodes, thyroid enlargement or meningeal signs. LUNGS: Clear. CARDIOVASCULAR: Regular rate. No murmur. ABDOMEN: Soft, benign and nontender. EXTREMITIES: Unremarkable. NEUROLOGIC: Physiologic, nonfocal, oriented x 4. ASSESSMENT: Subjective recurrent seizures since craniotomy despite Keppra therapy. PLAN: Neurologic consultation. HESHAM BEY MD DR: ESTEPHANIA/mia JOB#: [id number] / [id number]
[2018-06-19] MEDS ORDERED: INSULIN GLARGINE 300 UNITS/3 ML INSULN.PEN. SQ SCH (09:00)
[2018-06-19] MEDS: levETIRAcetam 500 MG TABLET PO SCH ×2 (09:32→20:50)
[2018-06-19] MEDS: amLODIPine BESYLATE 5 MG TABLET PO SCH (09:33)
[2018-06-19] MEDS: TRIAMTERENE/HCTZ 37.5/25MG TABLET. PO SCH (09:33)
[2018-06-19] MEDS: GABAPENTIN 300 MG CAPSULE. PO SCH ×3 (09:34→20:50)
[2018-06-19] MEDS: POLYETHYLENE GLYCOL 3350 17 GM PACKET. PO SCH ×2 (09:34→20:51)
--- NOTE | 2018-06-19 10:30 | NUR ---
ERNESTINE responding to a referral regarding uses home health and frequent admit. Chart reviewed and DW RN. Pt lives at home and independent with ADL's. SW spoke with pt in room and she reports she has home care with [facility]. No skilled needs indicated at this time. Will continue to eval needs.
[2018-06-19 11:04] VITALS: BP 151/79
[2018-06-19] MEDS: INSULIN LISPRO 300 UNITS/3 ML INSULN.PEN. SQ SCH ×2 (13:00→17:11)
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
[2018-06-19] MEDS: carBAMazepine 200 MG/10 ML ORAL.SUSP PO SCH ×2 (13:58→20:51)
[2018-06-19] MEDS: oxyCODONE IR 5 MG TABLET PO SCH ×2 (13:58→22:42)
[2018-06-19 15:02] VITALS: BP 166/74
[2018-06-19 19:56] VITALS: BP 166/91
--- NOTE | 2018-06-19 20:47 | EEG ---
DATE OF SERVICE: 06/19/2018 ELECTROENCEPHALOGRAM NUMBER: [id number]. OBJECTIVE: This is a 63-year-old female patient with history of right frontal meningioma status post surgical resection. She has focal seizures. She has increased twitching movements around her left side of mouth before admission. EEG was requested to evaluate seizure activity. METHODS: Twenty electrodes were applied according to the international 10-20 electrode placement system. EKG monitoring, hyperventilation, intermittent photic stimulation, monopolar and bipolar montages are routinely utilized. The record was obtained on a digital system with video monitoring. FINDINGS: 1. Background: The patient was recorded in the awake and drowsy states. No actual sleep state was recorded. The overall background amplitude is 10-25 microvolts. A posterior dominant rhythm of 7-8 Hz is observed, but most time is in the 8 Hz range. 2. Abnormalities: No specific epileptiform discharge or electrographic seizure is seen. No focal or diffuse slowing. 3. Activation: Hyperventilation was performed with fair efforts and normal response. Intermittent photic stimulation was performed with photic driving. No specific epileptiform discharge or electrographic seizure induced by hyperventilation or intermittent photic stimulation. IMPRESSION: This electroencephalogram is a borderline study for the awake, drowsy and sleep states. No focal, lateralizing, specific epileptiform discharge or electrographic seizure is seen. BARBARA HYDE MD DR: CHAYITO/mia JOB#: [id number] / [id number] WINIFRED
[2018-06-19] MEDS: ATORVASTATIN CALCIUM 10 MG TABLET. PO SCH (20:50)
[2018-06-19] MEDS: LATANOPROST 0.005% OPHTH SOLUTION 2.5ML BOTTLE. OU SCH (20:58)
[2018-06-19] MEDS: INSULIN GLARGINE 300 UNITS/3 ML INSULN.PEN. SQ SCH (20:58)
[2018-06-19 23:31] VITALS: BP 142/89
[2018-06-20 03:29] VITALS: BP 139/79
[2018-06-20] MEDS: oxyCODONE IR 5 MG TABLET PO SCH ×3 (06:12→21:05)
[2018-06-20 07:00] VITALS: BP 143/82
[2018-06-20] MEDS: levETIRAcetam 500 MG TABLET PO SCH ×2 (08:21→20:27)
[2018-06-20] MEDS: POLYETHYLENE GLYCOL 3350 17 GM PACKET. PO SCH ×2 (08:21→20:26)
[2018-06-20] MEDS: carBAMazepine 200 MG/10 ML ORAL.SUSP PO SCH ×2 (08:21→20:26)
[2018-06-20] MEDS: GABAPENTIN 300 MG CAPSULE. PO SCH ×3 (08:21→20:27)
[2018-06-20] MEDS: TRIAMTERENE/HCTZ 37.5/25MG TABLET. PO SCH (08:22)
[2018-06-20] MEDS: amLODIPine BESYLATE 5 MG TABLET PO SCH (08:29)
[2018-06-20] MEDS: INSULIN LISPRO 300 UNITS/3 ML INSULN.PEN. SQ SCH ×3 (08:32→17:25)
[2018-06-20 11:00] VITALS: BP 122/67
[2018-06-20 15:10] VITALS: BP 137/78
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
[2018-06-20 19:50] VITALS: BP 140/84
[2018-06-20] MEDS: ATORVASTATIN CALCIUM 10 MG TABLET. PO SCH (20:27)
[2018-06-20] MEDS: LATANOPROST 0.005% OPHTH SOLUTION 2.5ML BOTTLE. OU SCH (20:27)
--- NOTE | 2018-06-20 20:30 | PN ---
DATE: 06/20/2018 LOCATION: She is in room 672. SUBJECTIVE: The patient is awake and alert, states she is still having seizure type activity. Is concerned on getting her gabapentin exactly at the 8:00 hour rocío as it seems like when she does not she has more problems. OBJECTIVE: Vital signs are stable. She is afebrile. Blood pressure is a little bit high. LABORATORY DATA: CBC is normal. Sugars are around 200. Potassium was 3.[address] head during the stay is stable. EEG was ordered along with no definite seizure activity. Tegretol was added to her regimen yesterday by Neuro in addition to her ongoing Keppra and gabapentin for seizure control. IMPRESSION: 1. Recent craniotomy for meningioma. 2. Partial seizures. 3. Headaches. 4. Diabetes. 5. Diabetic peripheral neuropathy. 6. Hypertension. 7. Hyperlipidemia. 8. Obesity. PLAN: Continue to follow Neuro lead as far as her anti-seizure meds with eye towards discharge once things are controlled. ANITA GILMAN MD DR: JERALD/mia JOB#: [id number] / [id number]
[2018-06-20] MEDS: INSULIN GLARGINE 300 UNITS/3 ML INSULN.PEN. SQ SCH (20:34)
[2018-06-20 23:56] VITALS: BP 156/113
[2018-06-21 03:37] VITALS: BP 135/73
[2018-06-21] MEDS: oxyCODONE IR 5 MG TABLET PO SCH ×3 (05:48→21:17)
[2018-06-21 07:30] VITALS: BP 153/82
[2018-06-21] MEDS: POLYETHYLENE GLYCOL 3350 17 GM PACKET. PO SCH ×2 (08:11→21:17)
[2018-06-21] MEDS: TRIAMTERENE/HCTZ 37.5/25MG TABLET. PO SCH (08:12)
[2018-06-21] MEDS: carBAMazepine 200 MG/10 ML ORAL.SUSP PO SCH ×2 (08:13→21:17)
[2018-06-21] MEDS: amLODIPine BESYLATE 5 MG TABLET PO SCH (08:13)
[2018-06-21] MEDS: GABAPENTIN 300 MG CAPSULE. PO SCH ×3 (08:13→21:17)
[2018-06-21] MEDS: levETIRAcetam 500 MG TABLET PO SCH ×2 (08:13→21:17)
[2018-06-21] MEDS: INSULIN LISPRO 300 UNITS/3 ML INSULN.PEN. SQ SCH ×3 (08:18→17:21)
[2018-06-21 11:09] VITALS: BP 123/71
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
[2018-06-21 15:16] VITALS: BP 146/82
[2018-06-21 19:10] VITALS: BP 114/72
[2018-06-21] MEDS: ATORVASTATIN CALCIUM 10 MG TABLET. PO SCH (21:17)
[2018-06-21] MEDS: LATANOPROST 0.005% OPHTH SOLUTION 2.5ML BOTTLE. OU SCH (21:21)
[2018-06-21] MEDS: INSULIN GLARGINE 300 UNITS/3 ML INSULN.PEN. SQ SCH (21:26)
--- NOTE | 2018-06-21 23:09 | PN ---
DATE: 06/21/2018 LOCATION: Room 672. SUBJECTIVE: The patient is resting quietly at the time of my examination. OBJECTIVE: VITAL SIGNS: Stable. She is afebrile. CHEST: Clear. HEART: Regular. ABDOMEN: Benign. Nursing has no major concerns. Anticonvulsants are being titrated per Neurosurgery for control of seizures. Sugars are acceptable at this point in time. IMPRESSION: 1. Partial seizures, striving for control. 2. Headaches. 3. Recent craniotomy for meningioma. 4. Multiple other problems. PLAN: Continue adjustment per Neuro, anti-seizure medications with eye towards discharge once this is obtained, ANITA GILMAN MD DR: JERALD/mia JOB#: [id number] / [id number]
[2018-06-21 23:15] VITALS: BP 146/87
[2018-06-22 03:15] VITALS: BP 127/64
[2018-06-22] MEDS: oxyCODONE IR 5 MG TABLET PO SCH (06:04)
[2018-06-22 07:00] VITALS: BP 145/94
[2018-06-22] MEDS ORDERED: CARB200O5 PO (08:05)
--- NOTE | 2018-06-22 08:06 | PDOC ---
SUBJECTIVE Subjective Patient is feeling well and denies any known further seizures since Friday. OBJECTIVE Objective Reviewed. Vital Signs Vital Signs Date Time Temp Pulse Resp B/P (MAP) Pulse Ox O2 Delivery O2 Flow Rate FiO2 06/22/18 07:06 95 Room Air 06/22/18 07:00 98.3 88 18 145/94 (111) 94 Room Air 98.3 06/22/18 06:04 15 95 Room Air 06/22/18 03:15 98.0 83 18 127/64 (85) 95 Room Air 98.0 06/21/18 23:15 98.2 84 18 146/87 (106) 98 Room Air 98.2 06/21/18 21:17 100 Room Air 06/21/18 20:00 Room Air 06/21/18 19:10 98.0 101 18 114/72 (86) 100 Room Air 98.0 06/21/18 15:16 97.8 102 19 146/82 (103) 100 Room Air 97.8 06/21/18 14:23 97 Room Air 06/21/18 11:09 97.6 88 19 123/71 (88) 97 Room Air 97.6 06/21/18 08:13 106 153/82 I & O Intake and Output 06/22/18 07:00 Intake Total 1550 ml Balance 1550 ml Intake Oral 1550 ml # Voids 9 # Bowel Movements 2 PHYSICAL EXAM Physical Exam Alert, oriented Regular rate and rhythm Clear to auscultation bilaterally No edema Cooperative, calm ASSESSMENT/PLAN Assessment/Plan Partial seizures Recent craniotomy for meningioma Uncontrolled diabetes Hypertension Many other comorbidities Likely discharge later today pending neurology input COMMENT Lab Laboratory Tests Test 06/21/18 11:38 06/21/18 16:25 06/21/18 20:42 06/22/18 07:30 Glucose (Fingerstick) 164 mg/dL (70-99) 174 mg/dL (70-99) 204 mg/dL (70-99) 146 mg/dL (70-99) LINDA COLON MD Jun 22, 2018 08:06
[2018-06-22] MEDS: levETIRAcetam 500 MG TABLET PO SCH (08:17)
[2018-06-22] MEDS: POLYETHYLENE GLYCOL 3350 17 GM PACKET. PO SCH (08:18)
[2018-06-22] MEDS: TRIAMTERENE/HCTZ 37.5/25MG TABLET. PO SCH (08:18)
[2018-06-22] MEDS: amLODIPine BESYLATE 5 MG TABLET PO SCH (08:18)
[2018-06-22] MEDS: GABAPENTIN 300 MG CAPSULE. PO SCH (08:18)
[2018-06-22] MEDS: carBAMazepine 200 MG/10 ML ORAL.SUSP PO SCH (08:19)
[2018-06-22] MEDS: INSULIN LISPRO 300 UNITS/3 ML INSULN.PEN. SQ SCH (08:23)
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
[2018-06-22 11:06] VITALS: BP 145/72
--- NOTE | 2018-06-22 11:57 | NUR ---
SW following pt. Rehab screen recommends PT/OT eval and Tx order. Discussed with RN and RN reported pt is independent with ADL's and has been using her own walker to ambulate around. Pt has home care at home. Will continue to follow. Addendum: 06/22/18 at 1201 by MARIA L SINHA Spoke with RN orders for home health is to continue home care at home and no skilled HH needed. Pt is discharged.
--- NOTE | 2018-06-22 12:00 | NUR ---
PT DISCHARGED TO HOME WITH FAMILY. REVIEWED DIET, ACTIVITY, MEDICATIONS AND FOLLOW UP. VERBALIZED UNDERSTANDING.
--- NOTE | 2018-06-22 16:07 | PDOC3 ---
Discharge Summary Date of Admission: Jun 18, 2018 Date of Discharge: Jun 22, 2018 Follow-Up: Other (1-[address] Colon/Dr. Epperson) Admitting Diagnosis comment: Partial seizures, recurrent H/o recent craniotomy for meningioma FINAL DIAGNOSIS Same as above Brief Hospital Course Ms. 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 She has past medical history of uncontrolled type 2 diabetes, hypertensive chronic kidney disease stage III, hyperlipidemia, chronic pain, GERD, opioid dependence. She presented to the emergency room for recurrent partial seizures despite an increased dose of Keppra at discharge from recent admission. Neurology was consulted and an EEG was negative for epileptiform activity. She was continued on Keppra and Carbamazepine 200mg BID PO was added. She noted no further seizures and was feeling well enough for discharge with outpatient follow up. She was noted to have severely uncontrolled diabetes and hyperglycemia on admit. She has a history of dietary and medication non-compliance. She was encouraged to be compliant with medications and diabetic diet. She will follow up with Neurology as recommended and with Neurosurgery as previously scheduled. CONDITION AT DISCHARGE: Improved, Stable Discharge Medications Current Medications Ondansetron HCl (Zofran) 4 mg PRN Q8HRS PRN IV NAUSEA/VOMITING; Start 06/18/18 at 16:45; Stop 06/19/18 at 16:44; Status DC Morphine Sulfate (Morphine Sulfate) 2 mg PRN Q2HR PRN IV PAIN; Start 06/18/18 at 16:45; Stop 06/19/18 at 16:44; Status DC Sodium Chloride 1,000 ml @ 80 mls/hr [id number] IV Last administered on 06/19/18at 02:07; Start 06/18/18 at 16:43; Stop 06/19/18 at 16:42; Status DC Metoclopramide HCl (Reglan Vial) 10 mg 1X ONCE IV Last administered on at 17:32; Start 06/18/18 at 17:00; Stop 06/18/18 at 17:01; Status DC Diphenhydramine HCl (Benadryl) 25 mg 1X ONCE IVP Last administered on at 17:30; Start 06/18/18 at 17:00; Stop 06/18/18 at 17:01; Status DC Amlodipine Besylate (Norvasc) 5 mg DAILY PO Last administered on 06/22/18 08:18 ; Start 06/19/18 at 09:00; Stop 06/22/18 at 13:03; Status DC Atorvastatin Calcium (Lipitor) 10 mg HS PO Last administered on 06/21/18 21:17 ; Start 06/18/18 at 21:00; Stop 06/22/18 at 13:03; Status DC Gabapentin (Neurontin) 300 mg TID PO Last administered on 06/22/18 08:18; Start 06/18/18 at 21:00; Stop 06/22/18 at 13:03; Status DC Insulin Human Lispro (HumaLOG) 30 units TIDWMEALS SQ ; Start 06/19/18 at 08:00; Stop 06/19/18 at 08:40; Status DC Triamterene/HCTZ (Maxzide 37.5/ 25mg) 1 tab DAILY PO Last administered on 08:18; Start 06/19/18 at 09:00; Stop 06/22/18 at 13:03; Status DC Insulin Glargine (Lantus) 85 units QD SQ ; Start 06/19/18 at 09:00; Stop 06/19/18 at 09:00; Status DC Latanoprost (Xalatan) 1 drop QHS OU Last administered on 06/21/18 21:21; Start 06/18/18 at 21:00; Stop 06/22/18 at 13:03; Status DC Levetiracetam (Keppra) 750 mg BID PO Last administered on 06/22/18 08:17; Start 06/18/18 at 21:00; Stop 06/22/18 at 13:03; Status DC Oxycodone HCl (Roxicodone) 20 mg PRN TID PRN PO PAIN Last administered on 05:22; Start 06/18/18 at 20:30; Stop 06/19/18 at 08:40; Status DC Polyethylene Glycol (miraLAX PACKET) 17 gm BID PO Last administered on 08:18; Start 06/18/18 at 21:00; Stop 06/22/18 at 13:03; Status DC Insulin Glargine (Lantus) 50 units HS SQ Last administered on 06/21/18 21:26; Start 06/18/18 at 22:00; Stop 06/22/18 at 13:03; Status DC Insulin Human Lispro (HumaLOG) 8 units TIDWMEALS SQ Last administered on 08:23; Start 06/19/18 at 12:00; Stop 06/22/18 at 13:03; Status DC Oxycodone HCl (Roxicodone) 20 mg Q8HRS PO Last administered on 06/22/18 06:04; Start 06/19/18 at 14:00; Stop 06/22/18 at 13:03; Status DC Carbamazepine (TEGretol) 100 mg BID PO Last administered on 06/20/18 08:21; Start 06/19/18 at 13:30; Stop 06/20/18 at 15:24; Status DC Carbamazepine (TEGretol) 200 mg BID PO Last administered on 06/22/18 08:19; Start 06/20/18 at 21:00; Stop 06/22/18 at 13:03; Status DC Active Scripts Active Carbamazepine 200 Mg/10 Ml Oral.susp 200 Mg PO BID 30 Days Lantus (Insulin Glargine,Hum.rec.anlog) 100 Unit/1 Ml Vial 85 Unit SQ AM 30 Days LAST DOSE GIVEN: DATE:12-14-15 TIME:9:00 a.m. NEXT DOSE DUE: DATE:12-15-15 TIME:9:00 a.m. Neurontin (Gabapentin) 300 Mg Capsule 300 Mg PO TID 30 Days LAST DOSE GIVEN: DATE:12-14-15 TIME:2:30 p.m. NEXT DOSE DUE: DATE:12-15-15 TIME:9:00 p.m. Reported Levetiracetam 750 Mg Tablet 750 Mg PO BID Miralax (Polyethylene Glycol 3350) 17 Gm Powd.pack 1 Pkt PO BID Oxycodone Hcl 5 Mg Capsule 20 Mg PO TID PRN Atorvastatin Calcium 10 Mg Tablet 10 Mg PO HS Triamterene-Hctz 37.5-25 Mg Tb (Triamterene/Hydrochlorothiazid) 1 Each Tablet 1 Tab PO DAILY Humulin R (Insulin Regular, Human) 100 Unit/1 Ml Vial 30 Unit IJ TIDAC Latanoprost 2.5 Ml Drops 1 Drop EACHEYE QHS LAST DOSE GIVEN: DATE:12-13-15 TIME:9:00 p.m. NEXT DOSE DUE: DATE:12-14-15 TIME:9:00 p.m. Amlodipine Besylate 5 Mg Tablet 5 Mg PO DAILY LAST DOSE GIVEN: DATE:12-14-15 TIME:1:00 p.m. NEXT DOSE DUE: DATE:12-14 TIME:9:00 a.m. Vital Signs Vital Signs Date Time Temp Pulse Resp B/P (MAP) Pulse Ox O2 Delivery O2 Flow Rate FiO2 06/22/18 11:06 98.0 90 18 145/72 (96) 97 Room Air 98.0 Labs Laboratory Tests Test 06/20/18 16:27 06/20/18 19:25 06/21/18 07:57 06/21/18 11:38 Glucose (Fingerstick) 229 mg/dL (70-99) 182 mg/dL (70-99) 158 mg/dL (70-99) 164 mg/dL (70-99) Test 06/21/18 16:25 06/21/18 20:42 06/22/18 07:30 Glucose (Fingerstick) 174 mg/dL (70-99) 204 mg/dL (70-99) 146 mg/dL (70-99) Laboratory Tests Test 06/21/18 16:25 06/21/18 20:42 06/22/18 07:30 Glucose (Fingerstick) 174 mg/dL (70-99) 204 mg/dL (70-99) 146 mg/dL (70-99) Allergies Allergies Coded Allergies Type Severity Reaction Last Updated Verified Iodinated Contrast- Oral and IV Dye Allergy Intermediate Hives 12/16/15 Yes losartan Allergy Intermediate breaks out 02/20/17 Yes lisinopril Adverse Reaction Intermediate COUGH 12/16/15 Yes Disposition/Orders: D/C to Home w/ HH LINDA COLON MD Jun 22, 2018 16:07
== END 2018-06-22 12:00 | disposition home health service (06) | DRG 101 ==
LOC: ER 12:59 → 6 SOUTH 15:53
PROVIDERS: ADMIT Family Medicine; ATTEND Family Medicine
DX: G40.109 Localization-related (focal) (partial) symptomatic epilepsy and epileptic syndromes with simple partial seizures, not intractable, without status epilepticus (principal); D32.9 Benign neoplasm of meninges, unspecified; E11.42 Type 2 diabetes mellitus with diabetic polyneuropathy; E11.65 Type 2 diabetes mellitus with hyperglycemia; I10 Essential (primary) hypertension; E66.9 Obesity, unspecified; D64.9 Anemia, unspecified; E78.00 Pure hypercholesterolemia, unspecified; Z96.649 Presence of unspecified artificial hip joint; F32.9 Major depressive disorder, single episode, unspecified; G89.29 Other chronic pain; M19.90 Unspecified osteoarthritis, unspecified site; R25.3 Fasciculation; R93.0 Abnormal findings on diagnostic imaging of skull and head, not elsewhere classified; R26.9 Unspecified abnormalities of gait and mobility; E78.5 Hyperlipidemia, unspecified; M89.8X8 Other specified disorders of bone, other site; E11.22 Type 2 diabetes mellitus with diabetic chronic kidney disease; I12.9 Hypertensive chronic kidney disease with stage 1 through stage 4 chronic kidney disease, or unspecified chronic kidney disease; N18.3 Chronic kidney disease, stage 3 (moderate); K21.9 Gastro-esophageal reflux disease without esophagitis; Z79.899 Other long term (current) drug therapy; Z86.011 Personal history of benign neoplasm of the brain; Z90.710 Acquired absence of both cervix and uterus; Z91.11 Patient's noncompliance with dietary regimen; Z91.14 Patient's other noncompliance with medication regimen; Z88.8 Allergy status to other drugs, medicaments and biological substances; Z68.38 Body mass index [BMI] 38.0-38.9, adult; Z91.041 Radiographic dye allergy status; Z98.42 Cataract extraction status, left eye; Z98.41 Cataract extraction status, right eye; Z90.722 Acquired absence of ovaries, bilateral; Z80.8 Family history of malignant neoplasm of other organs or systems
CPT/HCPCS: 36415; 70450; 80048; 80307; 82962; 85025; 95816; 96374; 96375; J1200; J1815; J2765; J7030; 99285-25

== ENCOUNTER 2018-07-03 14:24 | Emergency (ER) | payer OTHER ==
[~2018-07-03] VITALS: Ht 147.3 cm; Wt 82.6 kg
[~2018-07-03 14:24] MED LIST changes: +CARB200O5 PO; +LEVE750T8 PO
--- NOTE | 2018-07-03 15:29 | PHYS DOC ---
Past Medical History Past Medical History: Constipation, Depression, Diabetes-Type II, High Cholesterol, Hypertension, Other Additional Past Medical Histor: diabetic neuropathy,chronic rt hip pain, BRAIN SURGERY D/T TUMORS Past Surgical History: Hip Replacement, Other Additional Past Surgical Histo: R hip, CRANI WITH BRAIN MASS REMOVAL, PARTIAL HYSTERECTOMY Alcohol Use: Sober Drug Use: None Adult General Chief Complaint Chief Complaint: HEADACHE HPI HPI Patient is a 63 year old female w/ a history of recent (04/08/2018) brain surgery d/t a brain mass (Right sided meningioma) who presents with unrelenting , "lightning bolt" shooting pains in her Right face and head. Pt reports that it starts in her hindu and then spreads to her head, eye, and right side of face. She says it is a 10/10 and describes it as a lightning shock/shooting/ stabbing pain. Sometimes she feels similar pain in her right hand. Pt notes these symptoms were non-existent until after her neurosurgery. She was visibly in pain and crying throughout most of the interview. She was seen in the hospital recently for similar symptoms and new onset seizures. Her seizures have not occurred since then but she says her pain has only gotten worse. She admits SOB, constipation, chills, and MARINELLI. She denies CP, N/v, diarrhea, abdominal pain, fever, and recent trauma. Review of Systems Review of Systems Constitutional: Denies fever or chills [] Eyes: Denies change in visual acuity, redness, or eye pain [] HENT: Denies nasal congestion or sore throat [] Respiratory: Denies cough or shortness of breath [] Cardiovascular: No additional information not addressed in HPI [] GI: Denies abdominal pain, nausea, vomiting, bloody stools or diarrhea [] : Denies dysuria or hematuria [] Musculoskeletal: Denies back pain or joint pain [] Integument: Denies rash or skin lesions [] Neurologic: Denies headache, focal weakness or sensory changes [] All other systems were reviewed and found to be within normal limits, except as documented in this note. Current Medications Current Medications Current Medications Medications (Trade) Dose Ordered Sig/Jani Start Time Stop Time Status Last Admin Dose Admin Acetaminophen (Tylenol) 650 mg 1X ONCE 07/03/18 15:45 3/15/19 15:46 DC 07/03/18 16:59 650 MG Ketamine HCl (Ketamine) 15 mg 1X ONCE 07/03/18 15:45 07/03/18 15:46 DC Oxycodone HCl (Roxicodone) 10 mg 1X ONCE 07/03/18 17:00 07/03/18 17:01 DC 07/03/18 17:03 10 MG Allergies Allergies Allergies Coded Allergies Type Severity Reaction Last Updated Verified Iodinated Contrast- Oral and IV Dye Allergy Intermediate Hives 12/16/15 Yes losartan Allergy Intermediate breaks out 02/20/17 Yes lisinopril Adverse Reaction Intermediate COUGH 12/16/15 Yes Physical Exam Physical Exam Constitutional: Crying upon entering room, distraught, in acute distress. HENT: Healed scar on right head extending from frontal region to occipital, bilateral external ears normal, oropharynx moist, no oral exudates, nose normal. Eyes: PERRLA, EOMI Neck: Normal range of motion, no tenderness, supple, no stridor. Cardiovascular:Heart rate regular rhythm, no murmur Lungs & Thorax: Bilateral breath sounds clear to auscultation Abdomen: Bowel sounds normal, soft, no tenderness, no masses, no pulsatile masses. Skin: Warm, dry, no erythema, no rash. Back: No tenderness, no CVA tenderness. Extremities: tenderness in R hip, no cyanosis, no clubbing, ROM intact, no edema. Neurologic: Alert and oriented X 3, CN II-XII Intact b/l. MS +5/5 UE and LE b/l, Psychologic: Affect normal, judgement normal, depressed mood Current Patient Data Vital Signs Vital Signs Date Time Temp Pulse Resp B/P (MAP) Pulse Ox O2 Delivery O2 Flow Rate FiO2 07/03/18 17:03 16 98 07/03/18 14:29 97.9 88 162/85 (110) Room Air 97.9 EKG EKG [] Radiology/Procedures Radiology/Procedures [IMPRESSION: 1. Postsurgical change as described above. 2. No acute intracranial abnormality is detected.] Course & Med Decision Making Course & Med Decision Making Ginny Epperson 63 yo F w/ history of recent brain surgery (04/08/2018) d/t brain mass presents w/ unrelenting MARINELLI's that have worsened since her last visit here, which is why she came in today. She describes the pain as a lightning bolt shooting to her eye and right side of head and face and is a 10/10. She was AAOx4, CN II-XII intact b/l, no focal deficits noticed on PE. Pt denies having a seizure since her departure 2 weeks ago. SUSPECT ACUTE ON CHRONIC HEADACHE. CT HEAD NEGATIVE I THINK PAIN CONTROL IS PRIMARY ISSUE NO SIGNS OF INFECTION RECOMMENDED INCREASE GABAPENTIN BY ONE PILL PER DOSE. RECOMMENDED FOLLOW UP WITH PRIMARY MD NEXT WEEK FOR FURHTER EVALUATION. SMALL AMOUNT OF OXYCODONE GIVEN Dragon Disclaimer Dragon Disclaimer This electronic medical record was generated, in whole or in part, using a voice recognition dictation system. Departure Departure Impression: Primary Impression: Headache Disposition: HOME, SELF-CARE Condition: STABLE Referrals: HESHAM EPPERSON MD (PCP) Scripts Oxycodone Hcl (OXYCODONE HCL) 5 Mg Capsule 10 MG PO PRN Q8HRS PRN for PAIN, #15 TAB 0 Refills Prov: DONTA ANTONY MD 07/03/18 DONTA ANTONY MD Jul 03, 2018 15:29
[2018-07-03] MEDS ORDERED: ACETAMINOPHEN 325 MG TABLET. PO ONE (15:45)
[2018-07-03] MEDS ORDERED: KETAMINE HCL IN NACL, ISO-OSM 50 MG/5 ML SYRINGE IV ONE (15:45)
--- NOTE | 2018-07-03 16:11 | RAD ---
CT of the head without contrast, 07/03/2018: HISTORY: Recent brain surgery, new head trauma Comparison is made to a study from 06/18/2018. There has been a right frontoparietal craniotomy. A surgical implant at the craniotomy site is producing prominent underlying artifacts obscuring a portion of the brain at that level. The ventricles are within normal limits in size. There is no shift of the midline structures. There is no evidence of acute intracranial hemorrhage or mass effect. There is an unchanged calcification beneath the internal table of the skull in the left frontoparietal region. There is partial opacification of the inferior mastoid air cells which is unchanged and is likely due to chronic inflammation. IMPRESSION: 1. Postsurgical change as described above. 2. No acute intracranial abnormality is detected. PQRS Compliance Statement: One or more of the following individualized dose reduction techniques were utilized for this examination: 1. Automated exposure control 2. Adjustment of the mA and/or kV according to patient size 3. Use of iterative reconstruction technique Electronically signed by: Angus Morgan MD (07/03/2018 4:08 PM) [facility]
[2018-07-03] MEDS ORDERED: OXYC5CAP PO (16:56)
[2018-07-03] MEDS ORDERED: oxyCODONE IR 5 MG TABLET PO ONE (17:00)
[2018-07-03] MEDS ORDERED: KETAMINE HCL 500 MG/10 ML VIAL. IV ONE (18:00)
[2018-07-03 19:45] VITALS: BP 168/67
== END 2018-07-03 19:45 | disposition home or self-care (01) ==
LOC: ER 14:24
DX: R51 Headache (principal); I10 Essential (primary) hypertension; E11.40 Type 2 diabetes mellitus with diabetic neuropathy, unspecified; E78.00 Pure hypercholesterolemia, unspecified; G89.29 Other chronic pain; Z88.8 Allergy status to other drugs, medicaments and biological substances; Z91.041 Radiographic dye allergy status
CPT/HCPCS: 70450; 96374; 99284; J3490

== ENCOUNTER 2018-07-07 11:28 | Emergency (ER) | payer OTHER ==
[~2018-07-07] VITALS: Ht 147.3 cm; Wt 82.6 kg
--- NOTE | 2018-07-07 12:21 | RAD ---
EXAM: AP View of the chest DATE: 07/07/2018 12:11 PM INDICATION: FACIAL TWEAKING COMPARISON: 06/09/2018 FINDINGS: Heart is mildly enlarged. Aorta is mildly tortuous. Diffusely decreased bone mineral density. No lobar consolidation. Minimal patchy opacities left lung base likely atelectasis. No pleural effusion or pneumothorax. IMPRESSION: Minimal patchy opacities left lung base likely atelectasis. Otherwise no evidence for acute cardiopulmonary process. Electronically signed by: Júnior Canales MD (07/07/2018 12:19 PM) [id number]
[2018-07-07 12:23] LABS: BASO # 0.1 x10^3/uL (0.0-0.2); BASO % 1 % (0-3); EOS # 0.1 x10^3/uL (0.0-0.7); EOS % 2 % (0-3); HEMATOCRIT 36.7 % (36.0-47.0); HEMOGLOBIN 12.4 g/dL (12.0-15.5); LYMPH # 2.2 x10^3/uL (1.0-4.8); LYMPH % 30 % (24-48); MEAN CORPUSCULAR HEMOGLOBIN 28 pg (25-35); MEAN CORPUSCULAR HGB CONC 34 g/dL (31-37); MEAN CORPUSCULAR VOLUME 83 fL (79-100); MONO # 0.5 x10^3/uL (0.0-1.1); MONO % 7 % (0-9); NEUT # 4.4 x10^3uL (1.8-7.7); NEUT % 61 % (31-73); PLATELET COUNT 261 x10^3/uL (140-400); RED CELL DISTRIBUTION WIDTH 12.7 % (11.5-14.5); WHITE BLOOD COUNT 7.3 x10^3/uL (4.0-11.0)
[2018-07-07 12:33] LABS: PROTHROMBIN TIME PATIENT 12.1 SEC (11.7-14.0)
--- NOTE | 2018-07-07 12:40 | RAD ---
PQRS Compliance Statement: One or more of the following individualized dose reduction techniques were utilized for this examination: 1. Automated exposure control 2. Adjustment of the mA and/or kV according to patient size 3. Use of iterative reconstruction technique CT HEAD WITHOUT CONTRAST History: FACIAL TWITCHING, RECENT BRAIN SURGERY Comparison: CT head without contrast, July 03. Procedure: Axial images are obtained of the head from the skull base through the vertex without IV contrast. Findings: The ventricles and sulci are normal for the patient's age. No mass-effect, midline shift, hemorrhage, extra-axial fluid collection, or obvious acute infarction is identified. Basilar cisterns are patent. Redemonstrated right frontoparietal craniectomy. There is prosthesis at the defect that is unchanged but it creates beam hardening artifact limiting evaluation of the underlying brain parenchyma. The visualized paranasal sinuses are clear. Inferior right mastoid air cells are opacified, unchanged. IMPRESSION: No acute intracranial abnormality. Electronically signed by: Armando Gordon MD (07/07/2018 12:37 PM) [id number]
[2018-07-07 12:42] LABS: CREATININE 1.4 mg/dL (0.6-1.0); GFR 45.7; POTASSIUM 4.3 mmol/L (3.5-5.1)
[2018-07-07 12:47] LABS: ALBUMIN 3.3 g/dL (3.4-5.0); ALBUMIN/GLOBULIN RATIO 0.8 (1.0-1.7); MAGNESIUM 2.3 mg/dL (1.8-2.4); TOTAL BILIRUBIN 0.1 mg/dL (0.2-1.0); TOTAL PROTEIN 7.6 g/dL (6.4-8.2)
[2018-07-07 12:51] LABS: CREATINE KINASE 86 U/L (26-192)
[2018-07-07] MEDS: IV NORMAL SALINE 1000ML BAG 1,000 ML IV ONE (13:24)
[2018-07-07 13:44] LABS: BILIRUBIN,URINE NEGATIVE (NEG); CLARITY,URINE CLOUDY; COLOR,URINE YELLOW; NITRITE,URINE NEGATIVE (NEG); PROTEIN,URINE NEGATIVE (NEG-TRACE); UROBILINOGEN,URINE 0.2 mg/dL (0.2 mg/dL)
[2018-07-07 13:49] LABS: BARBITURATES NEG (NEG); BENZODIAZEPINES NEG (NEG); CANNABINOIDS NEG (NEG); COCAINE NEG (NEG); METHADONE NEG (NEG); OPIATES NEG (NEG); PHENCYCLIDINE NEG (NEG)
[2018-07-07 13:51] LABS: AMPHETAMINE/METHAMPHETAMINE NEG (NEG)
[2018-07-07 13:55] LABS: BACTERIA,URINE 0 /HPF (0-FEW); RBC,URINE OCC /HPF (0-2); SQUAMOUS EPITHELIAL CELL,UR FEW /LPF; WBC,URINE OCC /HPF (0-4)
[2018-07-07] MEDS: INSULIN REGULAR 100 UNIT/ML 3ML VIAL. IV ONE (14:01)
[2018-07-07] MEDS: ACETAMINOPHEN 500 MG TABLET PO ONE (14:22)
[2018-07-07 14:40] VITALS: BP 160/81
--- NOTE | 2018-07-07 14:44 | EKG ---
[facility] [address] [place] [address] Test Date: 2018-07-07 Test Time: 12:38:10 Pat Name: JULITA BEY Department: Room: Gender: F Vp Purchasing: : 1955 Requested By: LM BARR Order Number: [id number] Reading MD: Malcom Bess MD Measurements Intervals [place] Rate: 86 P: 39 UT: 180 QRS: -4 QRSD: 68 T: 34 QT: 348 QTc: 419 Interpretive Statements SINUS RHYTHM Electronically Signed On 07-10-2018 16:10:13 CDT by Malcom Bess MD
--- NOTE | 2018-07-07 15:48 | PHYS DOC ---
Past Medical History Past Medical History: Constipation, Depression, Diabetes-Type II, High Cholesterol, Hypertension, Other Additional Past Medical Histor: diabetic neuropathy,chronic rt hip pain, BRAIN SURGERY D/T TUMORS Past Surgical History: Hip Replacement, Other Additional Past Surgical Histo: R hip, CRANI WITH BRAIN MASS REMOVAL, PARTIAL HYSTERECTOMY Additional Information: 14 years ago quit Alcohol Use: Sober Additional Information: quit 14 years ago Drug Use: None Adult General Chief Complaint Chief Complaint: OTHER COMPLAINTS HPI HPI Patient is a 63 year old female with history of recent brain surgery on 2017 for removal of a mass right sided meningioma who presents today complaining of "twitching" on the left side of her face that occurred early this morning. Patient states the last time she had this symptom she had a seizure and was put on several medications including Keppra and gabapentin.Reports right sided headache. Denies fever, denies any neck pain, denies any chest pain or shortness of breath Review of Systems Review of Systems Constitutional: Denies fever or chills [] Eyes: Denies change in visual acuity, redness, or eye pain [] HENT: Denies nasal congestion or sore throat [] Respiratory: Denies cough or shortness of breath [] Cardiovascular: No additional information not addressed in HPI [] GI: Denies abdominal pain, nausea, vomiting, bloody stools or diarrhea [] : Denies dysuria or hematuria [] Musculoskeletal: Denies back pain or joint pain [] Integument: Denies rash or skin lesions [] Neurologic: Reports twitching on the left side of the face. Denies headache, focal weakness or sensory changes [] Endocrine: Denies polyuria or polydipsia [] All other systems were reviewed and found to be within normal limits, except as documented in this note. Current Medications Current Medications Current Medications Medications (Trade) Dose Ordered Sig/Jani Start Time Stop Time Status Last Admin Dose Admin Acetaminophen (Tylenol) 1,000 mg 1X ONCE 07/07/18 14:15 07/07/18 14:16 DC 07/07/18 14:22 1,000 MG Insulin Human Regular (HumuLIN R VIAL) 8 unit 1X ONCE 07/07/18 13:45 07/07/18 13:46 DC 07/07/18 14:01 8 UNIT Sodium Chloride 1,000 ml @ 1,000 mls/hr 1X ONCE 07/07/18 13:30 07/07/18 14:29 DC 07/07/18 13:24 1,000 MLS/HR Allergies Allergies Allergies Coded Allergies Type Severity Reaction Last Updated Verified Iodinated Contrast- Oral and IV Dye Allergy Intermediate Hives 12/16/15 Yes losartan Allergy Intermediate breaks out 02/20/17 Yes lisinopril Adverse Reaction Intermediate COUGH 12/16/15 Yes Physical Exam Physical Exam Constitutional: Well developed, well nourished, no acute distress, non-toxic appearance. [] HENT: Normocephalic, atraumatic, bilateral external ears normal, oropharynx moist, no oral exudates, nose normal. [] Eyes: PERRLA, EOMI, conjunctiva normal, no discharge. [] Neck: Normal range of motion, no tenderness, supple, no stridor. [] Cardiovascular:Heart rate regular rhythm, no murmur [] Lungs & Thorax: Bilateral breath sounds clear to auscultation [] Abdomen: Bowel sounds normal, soft, no tenderness, no masses, no pulsatile masses. [] Skin: Warm, dry, no erythema, no rash. [] Back: No tenderness, no CVA tenderness. [] Extremities: No tenderness, no cyanosis, no clubbing, ROM intact, no edema. [] Neurologic: Old healed surgical incision noted on the right frontal scalp. Alert and oriented X 3, normal motor function, normal sensory function, no focal deficits noted. Cranial nerves II through XII intact Psychologic: Affect normal, judgement normal, mood normal. [] Current Patient Data Vital Signs Vital Signs Date Time Temp Pulse Resp B/P (MAP) Pulse Ox O2 Delivery O2 Flow Rate FiO2 07/07/18 14:40 86 16 160/81 (107) 96 Room Air 07/07/18 11:40 98.5 98.5 Lab Values Laboratory Tests Test 07/07/18 11:46 07/07/18 12:50 07/07/18 13:35 White Blood Count 7.3 x10^3/uL (4.0-11.0) Red Blood Count 4.40 x10^6/uL (3.50-5.40) Hemoglobin 12.4 g/dL (12.0-15.5) Hematocrit 36.7 % (36.0-47.0) Mean Corpuscular Volume 83 fL (79-100) Mean Corpuscular Hemoglobin 28 pg (25-35) Mean Corpuscular Hemoglobin Concent 34 g/dL (31-37) Red Cell Distribution Width 12.7 % (11.5-14.5) Platelet Count 261 x10^3/uL (140-400) Neutrophils (%) (Auto) 61 % (31-73) Lymphocytes (%) (Auto) 30 % (24-48) Monocytes (%) (Auto) 7 % (0-9) Eosinophils (%) (Auto) 2 % (0-3) Basophils (%) (Auto) 1 % (0-3) Neutrophils # (Auto) 4.4 x10^3uL (1.8-7.7) Lymphocytes # (Auto) 2.2 x10^3/uL (1.0-4.8) Monocytes # (Auto) 0.5 x10^3/uL (0.0-1.1) Eosinophils # (Auto) 0.1 x10^3/uL (0.0-0.7) Basophils # (Auto) 0.1 x10^3/uL (0.0-0.2) Prothrombin Time 12.1 SEC (11.7-14.0) Prothrombin Time INR 0.9 (0.8-1.1) PTT 29 SEC (24-38) Sodium Level 136 mmol/L (136-145) Potassium Level 4.3 mmol/L (3.5-5.1) Chloride Level 98 mmol/L (98-107) Carbon Dioxide Level 27 mmol/L (21-32) Anion Gap 11 (6-14) Blood Urea Nitrogen 17 mg/dL (7-20) Creatinine 1.4 mg/dL (0.6-1.0) H Estimated GFR (Cockcroft-Gault) 45.7 BUN/Creatinine Ratio 12 (6-20) Glucose Level 498 mg/dL (70-99) H Calcium Level 9.0 mg/dL (8.5-10.1) Magnesium Level 2.3 mg/dL (1.8-2.4) Total Bilirubin 0.1 mg/dL (0.2-1.0) L Aspartate Amino Transferase (AST) 30 U/L (15-37) Alanine Aminotransferase (ALT) 63 U/L (14-59) H Alkaline Phosphatase 214 U/L (46-116) H Creatine Kinase 86 U/L (26-192) Creatine Kinase MB (Mass) 0.5 ng/mL (0.0-3.6) Creatine Kinase MB Relative Index % (0-4) Troponin I Quantitative < 0.017 ng/mL (0.000-0.055) IA-Eyd-I-Type Natriuretic Peptide 14 pg/mL (0-124) Total Protein 7.6 g/dL (6.4-8.2) Albumin 3.3 g/dL (3.4-5.0) L Albumin/Globulin Ratio 0.8 (1.0-1.7) L Lactic Acid Level 2.2 mmol/L (0.4-2.0) H Urine Collection Type Unknown Urine Color Yellow Urine Clarity Cloudy Urine pH 7.0 Urine Specific [place] >=1.030 Urine Protein Negative mg/dL (NEG-TRACE) Urine Glucose (UA) >=1000 mg/dL (NEG) Urine Ketones (Stick) Negative mg/dL (NEG) Urine Blood Negative (NEG) Urine Nitrite Negative (NEG) Urine Bilirubin Negative (NEG) Urine Urobilinogen Dipstick 0.2 mg/dL (0.2 mg/dL) Urine Leukocyte Esterase Negative (NEG) Urine RBC Occ /HPF (0-2) Urine WBC Occ /HPF (0-4) Urine Squamous Epithelial Cells Few /LPF Urine Bacteria 0 /HPF (0-FEW) Urine Opiates Screen Neg (NEG) Urine Methadone Screen Neg (NEG) Urine Barbiturates Neg (NEG) Urine Phencyclidine Screen Neg (NEG) Urine Amphetamine/Methamphetamine Neg (NEG) Urine Benzodiazepines Screen Neg (NEG) Urine Cocaine Screen Neg (NEG) Urine Cannabinoids Screen Neg (NEG) Urine Ethyl Alcohol Neg (NEG) Laboratory Tests 07/07/18 11:46 Laboratory Tests 07/07/18 11:46 EKG EKG 12:[address] Miller sinus rhythm HR 86 no STEMI[] Radiology/Procedures Radiology/Procedures [] Course & Med Decision Making Course & Med Decision Making Pertinent Labs and Imaging studies reviewed. (See chart for details) This is a 63-year-old female patient with history of brain surgery for removal of a tumor last March presenting today complaining of twitching on the left side of the face. No twitching was noted on physical exam. Patient has history of seizures, she was put on Keppra and gabapentin recently. CBC with normal WBC, no acute findings of a CBC, CMP with glucose of 498, anion gap is 11. Creatinine 1.4, BUN is normal, patient was given a liter of fluid, given insulin in the ED. Blood glucose was rechecked prior to discharge. Lactic 2.2. CT of the head is negative for any acute findings, chest x-ray is negative. Spoke to patient's PCP Dr. worthington, she states she would like patient to follow-up with her own neurologist, she states patient's seizure medications were changed recently and she should be able to follow-up with her neurologist. Talked to patient about follow-up, she states she woke make the phone call herself to her neurologist and get an appointment as soon as possible. RN states patient called neurologist in the ED has appointment on 07/17/2018 Zechariah Disclaimer Zechariah Disclaimer This electronic medical record was generated, in whole or in part, using a voice recognition dictation system. Departure Departure Impression: Primary Impression: Seizure Additional Impression: Hyperglycemia Disposition: 01 HOME, SELF-CARE Condition: STABLE Referrals: HESHAM BEY MD (PCP) CORONA ZARAGOZA MD follow up next week Patient Instructions: Hyperglycemia, Seizure, Adult Additional Instructions: You were evaluated in the emergency room. Please follow-up with the neurologist as soon as possible. Continue taking his seizure medications and diabetes medications Problem Qualifiers GINETTEAmandaLM CLAUDIO Jul 07, 2018 15:48
== END 2018-07-07 15:55 | disposition home or self-care (01) ==
LOC: ER 11:28
DX: R56.9 Unspecified convulsions (principal); R25.3 Fasciculation; E11.65 Type 2 diabetes mellitus with hyperglycemia; F32.9 Major depressive disorder, single episode, unspecified; I10 Essential (primary) hypertension; G89.29 Other chronic pain; E11.40 Type 2 diabetes mellitus with diabetic neuropathy, unspecified; Z96.641 Presence of right artificial hip joint; Z87.891 Personal history of nicotine dependence; Z90.710 Acquired absence of both cervix and uterus; Z88.8 Allergy status to other drugs, medicaments and biological substances; Z91.041 Radiographic dye allergy status
CPT/HCPCS: 36415; 70450; 71045; 80053; 80177; 80307; 81001; 82553; 82962; 83605; 83735; 83880; 84484; 85025; 85610; 85730; 93005; 96361; 96374; 99284; J1815; J7030

== ENCOUNTER → 2018-07-17 | Outpatient (CLI) | payer OTHER ==
[2018-07-07 14:40] VITALS: BP 160/81
[~2018-07-17] MED LIST changes: +AMLO10TA8 PO; +CARB300C2 PO; +GADOBUTROL 7.5 MMOL/7.5 ML VIAL IV ONE; +INSU100I13 SQ; +OMEP40CA5 PO; +RANI150T2 PO; +SERT50TA8 PO; +[UNRECOGNIZED DRUG - CODE] PO
--- NOTE | 2018-07-17 10:17 | RAD ---
EXAMINATION: Magnetic resonance imaging (MRI) of the brain and brainstem without and with contrast 07/17/2018 8:14 AM HISTORY: Meningioma resection. Recent seizures. TECHNIQUE: Multiplanar multi-weighted MRI of the brain and brainstem was performed without and with intravenous contrast using the general brain protocol. Contrast information: 7.5 mL Gadolinium based contrast COMPARISON: MRI brain June 10, 2018 FINDINGS: Right frontal craniotomy changes are identified for resection of an extra-axial mass. There is subjacent susceptibility artifact from residual blood products. There is no intraparenchymal signal alteration. At the vertex, there is a extra-axial enhancing mass measuring 1.0 x 0.9 x 0.5 cm, most suggestive of a meningioma. This finding is stable. There is no associated vasogenic edema. The superior sagittal sinus demonstrates normal venous flow. The corpus callosum is normal in shape and signal intensity. The posterior fossa is unremarkable. The pituitary and sella are normal. The brainstem and craniocervical junction are unremarkable. Diffusion weighted images reveal no hyperintensities to suggest acute cerebral infarction. The susceptibility weighted sequences reveal no evidence of acute or chronic hemorrhage. The ventricles are normal in size and position without evidence of hydrocephalus. The paranasal sinuses are normal. The visualized portions of the mastoids are unremarkable. The orbits appear normal with exception of bilateral lens replacement. Normal flow voids are demonstrated in the carotid arteries and basilar artery. IMPRESSION: 1. Postoperative changes are identified from right frontoparietal craniotomy for resection of an extra-axial mass. No residual or recurrent disease identified in this region. 2. Stable left posterior frontal vertex extra-axial lesion measuring 1.0 x 0.9 x 0.5 cm. Findings are most suggestive of a meningioma. Normal MRI of the brain. Electronically signed by: Jojo Purvis MD (07/17/2018 10:14 AM) [id number]
== END | disposition home or self-care (01) ==
LOC: MRI 07:45
PROVIDERS: ATTEND Neurological Surgery
DX: G93.89 Other specified disorders of brain (principal); Z98.890 Other specified postprocedural states
CPT/HCPCS: 70553; A9585

== ENCOUNTER → 2018-08-13 | Outpatient (CLI) | payer OTHER ==
[~2018-08-13] MED LIST changes: -GADOBUTROL 7.5 MMOL/7.5 ML VIAL IV ONE
--- NOTE | 2018-08-13 15:48 | KCIC ---
Bilateral digital screening mammograms with 3-D tomosynthesis: Reason for examination: Routine screening. Comparison is made to previous studies dated 12/25/2016 and 02/28/2012. Bilateral mammograms in CC and oblique projections were obtained with 2-D imaging and 3-D tomosynthesis imaging on a Siemens Inspiration unit and reviewed on the workstation. Interpretation was made with the benefit of CAD. The skin and nipples show no abnormalities. No abnormal axillary lymph nodes are seen. The breast parenchyma shows scattered fatty and fibroglandular density. (Breast density: Category B.) There continues to be a small parenchymal density present in the central right breast which is unchanged. There are no new dominant masses, suspicious calcifications or architectural distortion. Impression: No evidence of malignancy. Recommend routine screening. BI-RAD Category 2: Benign. "Our facility is accredited by the [employer] Mammography Program." This patient's information has been entered into a reminder system for the patient to be notified with the results of her examination and a target date for the next mammogram. Electronically signed by: Liseth Casarez MD (08/13/2018 3:45 PM) [id number]
== END | disposition home or self-care (01) ==
LOC: KCIC MAMMO 09:42
PROVIDERS: ATTEND Family Medicine
DX: Z12.31 Encounter for screening mammogram for malignant neoplasm of breast (principal)
CPT/HCPCS: 77063; 77067

== ENCOUNTER 2018-09-25 11:39 | Observation (INO) | payer OTHER ==
[~2018-09-25] VITALS: Ht 162.6 cm; Wt 87.2 kg
[~2018-09-25 11:39] MED LIST changes: -AMLO10TA8 PO; -CARB300C2 PO; -INSU100I13 SQ; -OMEP40CA5 PO; -RANI150T2 PO; -SERT50TA8 PO; -[UNRECOGNIZED DRUG - CODE] PO
[2018-09-25] MEDS ORDERED: ONDANSETRON PF 4 MG/2 ML VIAL. IV ONE (11:45)
[2018-09-25] MEDS ORDERED: IV NORMAL SALINE 1000ML BAG 1,000 ML IV ONE (11:45)
--- NOTE | 2018-09-25 12:50 | EKG ---
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
[2018-09-25 13:05] LABS: BASO % 1 % (0-3); EOS # 0.2 x10^3/uL (0.0-0.7); EOS % 4 % (0-3); HEMATOCRIT 37.3 % (36.0-47.0); HEMOGLOBIN 12.6 g/dL (12.0-15.5); LYMPH # 1.3 x10^3/uL (1.0-4.8); LYMPH % 21 % (24-48); MEAN CORPUSCULAR HEMOGLOBIN 29 pg (25-35); MEAN CORPUSCULAR HGB CONC 34 g/dL (31-37); MEAN CORPUSCULAR VOLUME 86 fL (79-100); MONO # 0.4 x10^3/uL (0.0-1.1); MONO % 7 % (0-9); NEUT # 4.3 x10^3uL (1.8-7.7); NEUT % 68 % (31-73); PLATELET COUNT 247 x10^3/uL (140-400); RED BLOOD COUNT 4.34 x10^6/uL (3.50-5.40); RED CELL DISTRIBUTION WIDTH 13.9 % (11.5-14.5); WHITE BLOOD COUNT 6.3 x10^3/uL (4.0-11.0)
--- NOTE | 2018-09-25 13:05 | RAD ---
EXAM: CHEST 1 VIEW. HISTORY: Dizziness. COMPARISON: 07/07/2018. FINDINGS: A frontal view of the chest is obtained. There are no confluent infiltrates. There is no pneumothorax or pleural effusion. The heart is not enlarged. IMPRESSION: 1. No confluent infiltrates. Electronically signed by: Helga Vasquez MD (09/25/2018 1:02 PM) [facility]
[2018-09-25 13:28] LABS: ANION GAP 9 (6-14); BLOOD UREA NITROGEN 19 mg/dL (7-20); BUN/CREATININE RATIO 15 (6-20); CALCIUM 9.7 mg/dL (8.5-10.1); CARBON DIOXIDE 27 mmol/L (21-32); CHLORIDE 104 mmol/L (98-107); CREATININE 1.3 mg/dL (0.6-1.0); GFR 49.7; GLUCOSE 232 mg/dL (70-99); POTASSIUM 5.3 mmol/L (3.5-5.1); SODIUM 140 mmol/L (136-145)
[2018-09-25 13:30] LABS: ALBUMIN/GLOBULIN RATIO 1.1 (1.0-1.7); ALK PHOS 141 U/L (46-116); ALT (SGPT) 42 U/L (14-59); AST (SGOT) 25 U/L (15-37); CARBAM 10.5 mcg/mL (4.0-12.0); TOTAL BILIRUBIN 0.2 mg/dL (0.2-1.0); TOTAL PROTEIN 7.7 g/dL (6.4-8.2)
--- NOTE | 2018-09-25 15:07 | PHYS DOC ---
Past Medical History Past Medical History: Constipation, Depression, Diabetes-Type II, High Cholesterol, Hypertension, Other Additional Past Medical Histor: diabetic neuropathy,chronic rt hip pain, BRAIN SURGERY D/T TUMORS Past Surgical History: Hip Replacement, Other Additional Past Surgical Histo: R hip, CRANI WITH BRAIN MASS REMOVAL, PARTIAL HYSTERECTOMY Alcohol Use: Sober Drug Use: None Adult General Chief Complaint Chief Complaint: DIZZY/LIGHT HEADED HPI HPI Patient is a 63 year old female with history of bilateral meningiomas with recent brain surgery presents from neurologists office with hypotensive diaphoretic episode. Hypotension resolved prior to ED arrival, patient feels clammy generally weak. Denies chest pain palpitations. Does report left arm numbness and left shoulder numbness. No motor weakness. No other acute symptoms or complaints. Review of Systems Review of Systems Review of symptoms as per history of present illness. All other review symptoms are negative. All other systems were reviewed and found to be within normal limits, except as documented in this note. Current Medications Current Medications Current Medications Medications (Trade) Dose Ordered Sig/Jani Start Time Stop Time Status Last Admin Dose Admin Ondansetron HCl (Zofran) 4 mg 1X ONCE 09/25/18 11:45 09/25/18 11:50 DC 09/25/18 12:52 4 MG Sodium Chloride 1,000 ml @ 1,000 mls/hr 1X ONCE 09/25/18 11:45 09/25/18 12:44 DC 09/25/18 12:52 1,000 MLS/HR Allergies Allergies Allergies Coded Allergies Type Severity Reaction Last Updated Verified Iodinated Contrast- Oral and IV Dye Allergy Intermediate Hives 12/16/15 Yes losartan Allergy Intermediate breaks out 02/20/17 Yes lisinopril Adverse Reaction Intermediate COUGH 12/16/15 Yes Physical Exam Physical Exam Constitutional: Well developed, well nourished, no acute distress, non-toxic appearance. [] HENT: Normocephalic, atraumatic, bilateral external ears normal, oropharynx moist, no oral exudates, nose normal. [] Eyes: PERRLA, EOMI, conjunctiva normal, no discharge. [] Neck: Normal range of motion, no tenderness, supple, no stridor. [] Cardiovascular:Heart rate regular rhythm, no murmur [] Lungs & Thorax: Bilateral breath sounds clear to auscultation [] Abdomen: Bowel sounds normal, soft, no tenderness. [] Skin: Warm, dry. [] Back: No tenderness, no CVA tenderness. [] Extremities: No tenderness, no cyanosis, no clubbing, ROM intact, no edema. [] Neurologic: Alert and oriented X 3, normal motor function, normal sensory function, no focal deficits noted. [] Psychologic: Affect normal, judgement normal, mood normal. [] Current Patient Data Vital Signs Vital Signs Date Time Temp Pulse Resp B/P (MAP) Pulse Ox O2 Delivery O2 Flow Rate FiO2 09/25/18 14:10 82 97 09/25/18 12:05 97.5 16 187/91 (123) Room Air 97.5 Lab Values Laboratory Tests Test 09/25/18 12:45 09/25/18 12:46 White Blood Count 6.3 x10^3/uL (4.0-11.0) Red Blood Count 4.34 x10^6/uL (3.50-5.40) Hemoglobin 12.6 g/dL (12.0-15.5) Hematocrit 37.3 % (36.0-47.0) Mean Corpuscular Volume 86 fL (79-100) Mean Corpuscular Hemoglobin 29 pg (25-35) Mean Corpuscular Hemoglobin Concent 34 g/dL (31-37) Red Cell Distribution Width 13.9 % (11.5-14.5) Platelet Count 247 x10^3/uL (140-400) Neutrophils (%) (Auto) 68 % (31-73) Lymphocytes (%) (Auto) 21 % (24-48) L Monocytes (%) (Auto) 7 % (0-9) Eosinophils (%) (Auto) 4 % (0-3) H Basophils (%) (Auto) 1 % (0-3) Neutrophils # (Auto) 4.3 x10^3uL (1.8-7.7) Lymphocytes # (Auto) 1.3 x10^3/uL (1.0-4.8) Monocytes # (Auto) 0.4 x10^3/uL (0.0-1.1) Eosinophils # (Auto) 0.2 x10^3/uL (0.0-0.7) Basophils # (Auto) 0.0 x10^3/uL (0.0-0.2) Sodium Level 140 mmol/L (136-145) Potassium Level 5.3 mmol/L (3.5-5.1) H Chloride Level 104 mmol/L (98-107) Carbon Dioxide Level 27 mmol/L (21-32) Anion Gap 9 (6-14) Blood Urea Nitrogen 19 mg/dL (7-20) Creatinine 1.3 mg/dL (0.6-1.0) H Estimated GFR (Cockcroft-Gault) 49.7 BUN/Creatinine Ratio 15 (6-20) Glucose Level 232 mg/dL (70-99) H Calcium Level 9.7 mg/dL (8.5-10.1) Total Bilirubin 0.2 mg/dL (0.2-1.0) Aspartate Amino Transferase (AST) 25 U/L (15-37) Alanine Aminotransferase (ALT) 42 U/L (14-59) Alkaline Phosphatase 141 U/L (46-116) H Troponin I Quantitative < 0.017 ng/mL (0.000-0.055) DT-Jat-Y-Type Natriuretic Peptide 16 pg/mL (0-124) Total Protein 7.7 g/dL (6.4-8.2) Albumin 4.0 g/dL (3.4-5.0) Albumin/Globulin Ratio 1.1 (1.0-1.7) Thyroid Stimulating Hormone (TSH) 1.300 uIU/mL (0.358-3.74) Carbamazepine (Tegretol) Level 10.5 mcg/mL (4.0-12.0) Carbamazepine Last Dose Date Unknown Carbamazepine Last Dose Time Unknown Glucose (Fingerstick) 209 mg/dL (70-99) H Laboratory Tests 09/25/18 12:45 Laboratory Tests 09/25/18 12:45 EKG EKG EKG: reviewed[] Radiology/Procedures Radiology/Procedures [CXR: reviewed] Course & Med Decision Making Course & Med Decision Making Pertinent Labs and Imaging studies reviewed. (See chart for details) [Patient no longer hypotensive but is hypertensive in the emergency department and continues to plane of fatigue and weakness. Dr. Epperson to admit with neurology to consult] Zechariah Disclaimer Zechariah Disclaimer This electronic medical record was generated, in whole or in part, using a voice recognition dictation system. Departure Departure Impression: Primary Impression: Paresthesia Additional Impression: Weakness Disposition: 09 ADMITTED INPATIENT Admitting Physician: Hesham Epperson Condition: STABLE Referrals: HESHAM EPPERSON MD (PCP) Problem Qualifiers KRISSY SU DO Sep 25, 2018 15:07
[2018-09-25] MEDS ORDERED: SERT50TA8 PO (17:08)
[2018-09-25] MEDS ORDERED: RANI150T2 PO (17:08)
[2018-09-25] MEDS ORDERED: INSU100I13 SQ (17:08)
[2018-09-25] MEDS ORDERED: METF500T16 PO (17:08)
[2018-09-25] MEDS ORDERED: OMEP40CA5 PO (17:08)
[2018-09-25] MEDS ORDERED: AMLO10TA8 PO (17:08)
[2018-09-25] MEDS ORDERED: [UNRECOGNIZED DRUG - CODE] PO (17:08)
[2018-09-25] MEDS ORDERED: CARB300C2 PO (17:08)
[2018-09-25] MEDS ORDERED: OXYC20TA PO (17:08)
[2018-09-25 19:36] VITALS: BP 126/65
[2018-09-25 19:45] VITALS: BP_SYST 122; BP_SYST 139; BP_DIAS 70; BP_DIAS 77
[2018-09-25] MEDS: GABAPENTIN 300 MG CAPSULE. PO SCH (20:34)
[2018-09-25] MEDS: levETIRAcetam 250 MG TABLET PO SCH (20:34)
[2018-09-25] MEDS: carBAMazepine 200 MG TABLET PO SCH (20:37)
[2018-09-25] MEDS: oxyCODONE IR 5 MG TABLET PO SCH (20:39)
[2018-09-25] MEDS ORDERED: ATORVASTATIN CALCIUM 10 MG TABLET. PO SCH (21:00)
[2018-09-25] MEDS ORDERED: NON FORMULARY ITEM (Omeprazole 40 MG) PO SCH (21:00)
[2018-09-25] MEDS ORDERED: LATANOPROST 0.005% OPHTH SOLUTION 2.5ML BOTTLE. OU SCH (21:00)
[2018-09-25 23:27] VITALS: BP 153/72
[2018-09-26 03:23] VITALS: BP 133/73
[2018-09-26 03:24] VITALS: BP 119/53
[2018-09-26 03:25] VITALS: BP 128/69
[2018-09-26] MEDS ORDERED: ACETAMINOPHEN 325 MG TABLET. PO PRN (04:30)
[2018-09-26 07:49] VITALS: BP 126/59
[2018-09-26 07:51] VITALS: BP_SYST 141; BP_SYST 143; BP_DIAS 80; BP_DIAS 82
[2018-09-26] MEDS: INSULIN LISPRO 300 UNITS/3 ML INSULN.PEN. SQ SCH ×2 (08:00→13:10)
[2018-09-26] MEDS ORDERED: metFORMIN 500 MG TABLET PO SCH (08:00)
[2018-09-26] MEDS: levETIRAcetam 250 MG TABLET PO SCH (08:26)
[2018-09-26] MEDS: carBAMazepine 200 MG TABLET PO SCH (08:27)
[2018-09-26] MEDS: GABAPENTIN 300 MG CAPSULE. PO SCH ×2 (08:29→14:39)
[2018-09-26] MEDS: oxyCODONE IR 5 MG TABLET PO SCH ×2 (08:30→14:39)
[2018-09-26] MEDS ORDERED: SERTRALINE 50 MG TABLET. PO SCH (09:00)
[2018-09-26] MEDS ORDERED: INSULIN GLARGINE 300 UNITS/3 ML INSULN.PEN. SQ SCH (09:00)
[2018-09-26] MEDS ORDERED: TRIAMTERENE/HCTZ 37.5/25MG TABLET. PO SCH (09:00)
[2018-09-26] MEDS ORDERED: amLODIPine BESYLATE 10 MG TABLET PO SCH (09:00)
[2018-09-26] MEDS ORDERED: FAMOTIDINE 20 MG TABLET. PO SCH (09:00)
[2018-09-26] MEDS ORDERED: NON FORMULARY ITEM (Linaclotide (Linzess) 145 MCG) PO SCH (09:00)
--- NOTE | 2018-09-26 10:21 | PDOC ---
Provider Note Provider Note [id number] HESHAM BEY MD Sep 26, 2018 10:21
--- NOTE | 2018-09-26 10:49 | SSS ---
ADMIT DATE: 09/26/2018 TWENTY THREE HOUR SUMMARY: HOSPITAL SUMMARY: The patient came in after dizziness and weakness and hypotension, while seen in Dr. Smith's office. In the ER, her evaluation was unremarkable and she was not hypotensive or hypoglycemic. CBC and chemistry profile and chest x-ray were all normal. An echocardiogram is pending at this time. Blood pressures remain stable, as her blood sugars, and she is feeling well, and so after her echocardiogram, she will be discharged and followed as an outpatient. We will keep her medications the same at this time as her blood pressure has not been low in the past, but may have to consider reducing amlodipine should recurrent hypertension continue. FINAL DIAGNOSIS: Hypertension, iatrogenic. OPERATIONS, PROCEDURES, COMPLICATIONS, AND CONSULTATIONS: None. DISPOSITION: Same medications. Echocardiogram pending. Office followup in [address] HESHAM BEY MD DR: ESTEPHANIA/mia JOB#: [id number] / [id number]
[2018-09-26 11:00] VITALS: BP 127/67
--- NOTE | 2018-09-26 13:39 | NUR ---
per Dr Epperson. pt will be discharged home today without the Echo being done. he stated over the phone that he and the pt will take care of it on the next appt within the office and he will order it outpatient. Luis Jang RN
--- NOTE | 2018-09-26 20:23 | CONS ---
DATE OF CONSULTATION: 09/25/2018 REFERRING PHYSICIAN: Dr. Sebastien Epperson. REASON FOR CONSULTATION: Episode of syncope. History of partial seizure, depression, diabetes with neuropathy. HISTORY OF PRESENT ILLNESS: The patient is a pleasant 63-year-old woman who was discovered to have a right frontal meningioma, which was resected last year. She has had some breakthrough partial seizures following the resection. She is maintained on anticonvulsants and has not had a breakthrough seizure since 05/2018. She was being evaluated by Dr. Cortez when suddenly she became extremely diaphoretic. Her blood pressure was low at the time and she started to not be able to think or walk. She was referred to the Emergency Department out of concern for cardiac syndrome. She did not have evidence of focal seizure at that time. She does admit she has been under a great deal of stress because both her son and grandson are using drugs and the son lives with her. She has had depression, but was started on an antidepressant a few months ago, but is feeling very stressed with the situation and on the verge of wanting to harm herself. She has had other spells of diaphoresis, but none where she feels like she is going to completely pass out. PAST MEDICAL HISTORY: 1. Depression. 2. Type 2 diabetes. 3. Hyperlipidemia. 4. Hypertension. 5. Resection of right frontal meningioma. 6. Diabetic neuropathy. 7. Chronic right hip pain, status post hip replacement, but residual pain. 8. Partial hysterectomy. ALLERGIES: IODINATED CONTRAST DYE ORAL AND INTRAVENOUS, LISINOPRIL AND LOSARTAN. MEDICATIONS PRIOR TO ADMISSION: Amlodipine 10 mg, atorvastatin 10 mg, carbamazepine 300 mg twice per day, gabapentin 300 mg 3 times per day, insulin, latanoprost ophthalmic, levetiracetam 750 mg twice per day, Linzess 145 mcg, metformin 500 mg twice per day, omeprazole 40 mg at night, oxycodone 20 mg 3 times per day, ranitidine 150 mg, sertraline 100 mg, triamterene/hydrochlorothiazide daily. FAMILY HISTORY: Father of a myocardial infarction around age 70. Mother of a myocardial infarction and diabetes at the age of 75. SOCIAL HISTORY: She is a former smoker. She does not use a significant amount of alcohol or any recreational drugs. She is very stressed because both her son and grandson are using recreational drugs. Her son lives with her. REVIEW OF SYSTEMS: She has had pain in the right ear where the tumor was resected. She has had no change in vision. She has diminished hearing. She normally does not have cognitive loss. She has been able to talk and comprehend except during the spell. She has not had trouble with swallowing. She does not complain of shortness of breath, chest or abdominal pain. She has a great deal of bone and joint pain, especially the hands and the right hip. She had problems with her knees as well. She has not had fever or rash. She often has mild difficulty, but the Linzess has been very helpful. She does not have genitourinary complaints. She does have numbness in the feet and legs. She has very poor balance. She was using a walker after her hip replacement, but she has been trying to not use her walker any longer, although finds that with the distance, she becomes quite unstable with walking. She has not reported a rash. PHYSICAL EXAMINATION: VITAL SIGNS: The blood pressure was 126/65 supine with pulse of 77, standing 139/70 with pulse of 90 and standing 5 minutes 122/77 with pulse of 82. Oximetry was 96% on room air. She was febrile with a temperature of 98.1. Her weight was 83.9 kilograms, height 64 inches and a calculated body mass index of 31.8. GENERAL: She was alert, awake and cooperative. Speech was fluent and clear. She had a good fund of recent and remote knowledge. Attention and concentration was intact. She appeared well groomed and well nourished. She was fully oriented. NEUROLOGIC: Examination of the cranial nerves revealed visual leblanc were full to confrontation. Extraocular movements were intact. The eyes were conjugate. Pursuit movements were smooth and saccadic eye movements were without dysmetria. Pupils were 3 mm and reactive. Funduscopic exam did not reveal papilledema, exudate or hemorrhage. Facial sensation was intact. The muscles of mastication and facial expression were powerful symmetrically. Hearing was intact to finger rub. The palate arched symmetrically and the tongue was midline with full range of motion. Sternocleidomastoid and trapezius were powerful. Muscle bulk and tone was normal. There was no arm or leg drift. The power was full and symmetric in the upper and lower extremities. She had a tendency to give way in the right leg because of pain, but burst strength was good. Reflexes were 2/4 in the upper extremities and at the knees, but absent at both ankles. The toes were downgoing bilaterally. Coordination testing with [id number], [id number], fine motor and rapid alternating movements was fair. She had difficulty with fine motor movements in the hands because they were swollen and painful. Pain in the hips and knees limited her [id number], but there was no ataxia. Sensory examination was intact to pain, light touch, proprioception, graphesthesia, cold thermal and vibration. There was marked sensory shading in the legs with sharp to the mid calf, cold thermal to the mid and upper calf. Vibration was shaded, but perceived in the feet. Proprioception was impaired, but present. There was no extinction to double simultaneous stimulation. She was able to stand and bear weight and take several steps. Further testing was not possible. Auscultation of the carotid arteries did not reveal a bruit. Heart rhythm is regular, without a murmur. Peripheral pulses were symmetric in the wrist and in the feet. There was edema of the hands as well as the feet. There was no cyanosis. REVIEW OF LABORATORY DATA: CBC revealed a normal white blood cell count, hemoglobin, hematocrit and platelet count. Chemistries revealed normal sodium, but potassium was elevated to 5.3. Chloride and CO2 were normal. BUN was normal, but creatinine was elevated to 1.3 with a calculated GFR of 49.7. Glucose was elevated to 232. Calcium, total protein and albumin were normal. Liver enzymes were not elevated, except alkaline phosphatase at 141. BNP was not elevated. TSH was normal. Troponin was not elevated. A carbamazepine level was performed 09/25/2018 and was 10.5. Chest x-ray revealed no confluent infiltrates. IMPRESSION: The patient is a 63-year-old woman who had an episode of diaphoresis, hypotension and generally feeling poorly, while being examined by Dr. Cortez. This could be a vasovagal event. It is possible that this could be a primary cardiac event. She is no longer orthostatic with the most recent checks. Neurologic exam is nonfocal. This would be quite unusual for seizure as her seizures are typically focal and this did not have a focality. The neurologic exam reveals evidence of a peripheral neuropathy with sensory shading in the feet and loss of ankle reflexes, but otherwise is nonfocal. She does have impaired balance, likely due to multiple factors including diabetic neuropathy and diminished vestibular input as well. RECOMMENDATIONS: I would continue to monitor orthostatic blood pressures to see if there is an orthostatic change at different parts of the day. Cardiac workup would be logical with echocardiogram and potentially an adenosine stress test. We will continue with her prehospital anticonvulsant to prevent seizure. I appreciate being involved in her care. ISAC DUFFY MD DR: RYAN/mia JOB#: [id number] / [id number] Kle Portillo MD
== END 2018-09-26 15:49 | disposition home or self-care (01) ==
LOC: ER 11:39 → 6 SOUTH 14:30
PROVIDERS: ADMIT Family Medicine; ATTEND Family Medicine
DX: I10 Essential (primary) hypertension (principal); F32.9 Major depressive disorder, single episode, unspecified; E78.00 Pure hypercholesterolemia, unspecified; I95.9 Hypotension, unspecified; E78.5 Hyperlipidemia, unspecified; G89.29 Other chronic pain; M25.551 Pain in right hip; E11.9 Type 2 diabetes mellitus without complications; Z82.49 Family history of ischemic heart disease and other diseases of the circulatory system; Z90.711 Acquired absence of uterus with remaining cervical stump; Z86.011 Personal history of benign neoplasm of the brain; Z96.649 Presence of unspecified artificial hip joint; Z87.891 Personal history of nicotine dependence; Z83.3 Family history of diabetes mellitus; Z90.710 Acquired absence of both cervix and uterus
CPT/HCPCS: 36415; 71045; 80053; 80156; 82962; 83880; 84443; 84484; 85025; 93005; 96361; 96372; 96374; 99284; G0378; J1815; J2405; J7030; G0379

== ENCOUNTER 2018-11-02 00:32 | Emergency (ER) | payer OTHER ==
[~2018-11-02] VITALS: Ht 147.3 cm; Wt 83.9 kg
[~2018-11-02 00:32] MED LIST changes: +AMLO10TA8 PO; +CARB300C2 PO; +INSU100I13 SQ; +OMEP40CA5 PO; +RANI150T2 PO; +SERT50TA8 PO; +[UNRECOGNIZED DRUG - CODE] PO
--- NOTE | 2018-11-02 02:02 | PHYS DOC ---
Past Medical History Past Medical History: Constipation, Depression, Diabetes-Type II, High Cholesterol, Hypertension, Other Additional Past Medical Histor: diabetic neuropathy,chronic rt hip pain, BRAIN SURGERY D/T TUMORS Past Surgical History: Hip Replacement, Other Additional Past Surgical Histo: R hip, CRANI WITH BRAIN MASS REMOVAL, PARTIAL HYSTERECTOMY Alcohol Use: Sober Drug Use: None Adult General Chief Complaint Chief Complaint: MULTIPLE COMPLAINTS HPI HPI Patient is a 63 year old [female] who presents with [headache and right sided twitching of the mouth.] Pt states the pain started since she had her brain surgery in March of 2018. She reports that her right sided twitching of the mouth is what prompted her to seek treatment as she was worried about a stroke or seizure.She also reports she was unable to remember her great granddaughter's name yesterday which was abnormal for her she then remembered it later she has had trouble remembering stuff on and off for about a month or more, the twitching has been present intermittently for awhile now, it just happened four tiems in a row so she was worried. She admits to seeing floaters and being fearful of something being wrong with her. She denies n/v, chest pain, shortness of air, and abdominal pain. Review of Systems Review of Systems Constitutional: Denies fever or chills Eyes: Denies change in visual acuity, redness, or eye pain HENT: Denies nasal congestion or sore throat Respiratory: Denies cough or shortness of breath Cardiovascular: No additional information not addressed in HPI GI: Denies abdominal pain, nausea, vomiting, bloody stools or diarrhea : Denies dysuria or hematuria Musculoskeletal: Denies back pain or joint pain Integument: Denies rash or skin lesions Neurologic: Denies focal weakness or sensory changes [Admits headache] Endocrine: Denies polyuria or polydipsia All other systems were reviewed and found to be within normal limits, except as documented in this note. Allergies Allergies Allergies Coded Allergies Type Severity Reaction Last Updated Verified Iodinated Contrast- Oral and IV Dye Allergy Intermediate Hives 12/16/15 Yes losartan Allergy Intermediate breaks out 02/20/17 Yes lisinopril Adverse Reaction Intermediate COUGH 12/16/15 Yes Physical Exam Physical Exam Constitutional:acute distress, patient tearful and scared that she's "having a seizure or stroke." HENT:bilateral external ears normal, oropharynx moist, no oral exudates, nose normal. Throughout the history gathering and physical examination I did not observe any twitching of her mouth, though patient states it was twitching throughout the examination. Eyes: PERRLA, EOMI, no discharge. [conjunctiva mildly injected] Neck: Normal range of motion, no tenderness, supple, no stridor. Cardiovascular:Heart rate regular rhythm, no murmur Lungs & Thorax: Bilateral breath sounds clear to auscultation Abdomen: Bowel sounds normal, soft, no tenderness, no masses, no pulsatile masses. Skin: Warm, dry, no erythema, no rash. Back: No tenderness, no CVA tenderness. Extremities: No tenderness, no cyanosis, no clubbing, ROM intact, no edema. Neurologic: Alert and oriented X 3, normal motor function, normal sensory function, no focal deficits noted. CN II-XII Intact b/l Psychologic:[Mood scared, pt is anxious and thinks something is wrong with her.] Current Patient Data Vital Signs Vital Signs Date Time Temp Pulse Resp B/P (MAP) Pulse Ox O2 Delivery O2 Flow Rate FiO2 11/02/18 02:41 66 175/78 (110) 96 Room Air 11/02/18 00:39 97.5 16 97.5 Lab Values Laboratory Tests Test 11/02/18 00:56 Sodium Level 144 mmol/L (136-145) Potassium Level 4.5 mmol/L (3.5-5.1) Chloride Level 105 mmol/L (98-107) Carbon Dioxide Level 28 mmol/L (21-32) Anion Gap 11 (6-14) Blood Urea Nitrogen 13 mg/dL (7-20) Creatinine 1.2 mg/dL (0.6-1.0) H Estimated GFR (Cockcroft-Gault) 54.6 BUN/Creatinine Ratio 11 (6-20) Glucose Level 287 mg/dL (70-99) H Calcium Level 9.3 mg/dL (8.5-10.1) Total Bilirubin 0.2 mg/dL (0.2-1.0) Aspartate Amino Transferase (AST) 34 U/L (15-37) Alanine Aminotransferase (ALT) 46 U/L (14-59) Alkaline Phosphatase 188 U/L (46-116) H Total Protein 7.4 g/dL (6.4-8.2) Albumin 3.8 g/dL (3.4-5.0) Albumin/Globulin Ratio 1.1 (1.0-1.7) Laboratory Tests 11/02/18 00:56 EKG EKG [] Radiology/Procedures Radiology/Procedures [] Course & Med Decision Making Course & Med Decision Making Pertinent Labs and Imaging studies reviewed. (See chart for details) [Pt is a 63 yo female AAOx3, s/p brain surgery for tumor resection 03/2018, presenting with headache and right sided twitching of the mouth. Pt states the headache has been present since the surgery and it "comes and goes," and she reports the oral twitching as the inciting factor to come to the emergency department. Her headaches is rated a 7/10 and described as a sharp, throbbing pain that is all over but worst on the right. No twitching of the mouth was observed throughout the visit but the patient states that she could feel it twi tching during this time. CN II-XII were intact b/l, no focal neuro deficits were noted. Pt seems fixated on the mouth twitching and was reassured that it is unlikely she had a stroke. has had multiple recent imaging i dont think it needs to be repeated. pt is neuro intact, quite anxious overall i know her from prevoius visits, she appears to be at her baseline, no evidence of seizure activity in er reassurance provided continue current medication regimen, f/u wtih pmd/neuro for persistent symptoms. Dragon Disclaimer Dragon Disclaimer This electronic medical record was generated, in whole or in part, using a voice recognition dictation system. Departure Departure Impression: Primary Impression: Twitching Disposition: 01 HOME, SELF-CARE Condition: STABLE Referrals: HESHAM BEY MD (PCP) DONTA ANTONY MD Nov 02, 2018 02:02
[2018-11-02 02:12] LABS: ALBUMIN 3.8 g/dL (3.4-5.0); ALBUMIN/GLOBULIN RATIO 1.1 (1.0-1.7); CALCIUM 9.3 mg/dL (8.5-10.1); GFR 54.6; POTASSIUM 4.5 mmol/L (3.5-5.1); TOTAL BILIRUBIN 0.2 mg/dL (0.2-1.0); TOTAL PROTEIN 7.4 g/dL (6.4-8.2)
[2018-11-02 02:17] LABS: CREATININE 1.2 mg/dL (0.6-1.0)
[2018-11-02 02:41] VITALS: BP 175/78
--- NOTE | 2018-11-02 08:53 | EKG ---
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
== END 2018-11-02 02:58 | disposition home or self-care (01) ==
LOC: ER 00:32
DX: R25.3 Fasciculation (principal); R51 Headache; E78.00 Pure hypercholesterolemia, unspecified; E11.40 Type 2 diabetes mellitus with diabetic neuropathy, unspecified; I10 Essential (primary) hypertension; G89.29 Other chronic pain; Z96.641 Presence of right artificial hip joint; Z90.711 Acquired absence of uterus with remaining cervical stump; Z91.041 Radiographic dye allergy status; Z88.8 Allergy status to other drugs, medicaments and biological substances
CPT/HCPCS: 36415; 80053; 93005; 99285-25

== ENCOUNTER → 2019-01-05 | Outpatient (CLI) | payer OTHER ==
[2018-12-05 11:00] VITALS: BP 129/73
[~2019-01-05] MED LIST changes: +BUPR150T6 PO; +GABA600T7 PO
--- NOTE | 2019-01-05 13:48 | KCIC ---
BRAIN W/O CONTRAST History: Meningioma. Right frontal craniotomy. Headache. Memory loss. Technique: Multiplanar, multi sequential MR imaging was performed of the brain without contrast. Comparison: CT December 03, 2018. Brain MRI July 17, 2018. Findings: No acute infarct. No intracranial hemorrhage. No mass effect. Postop changes right parietal cranioplasty. No evidence of underlying dural thickening or mass on noncontrast examination. Extra-axial left superior frontal region lesion measures 1.0 x 0.4 cm, similar compared to prior allowing for differences in technique. Mild foci of T2/FLAIR hyperintensity within the hemispheric white matter, most often due to chronic microvascular ischemia, unchanged. Imaged orbits are unremarkable. Imaged paranasal sinuses are clear. Minimal mastoid fluid. Right postauricular subcutaneous scalp lesion, slightly increased in size measures 0.6 cm compared to 0.4 cm previously. Impression: 1. No acute intracranial abnormality. 2. Postoperative changes right parietal cranioplasty. 3. Unchanged left superior vertex extra-axial lesion, favor meningioma. 4. Right postauricular scalp lesion, most likely epidermal inclusion cyst, slightly increased compared to prior. 5. Mild sequela chronic microvascular ischemia. Electronically signed by: Vj Sterling DO (01/05/2019 1:45 PM) [facility]
== END | disposition home or self-care (01) ==
LOC: KCIC MRI 09:36
PROVIDERS: ATTEND Psychiatry & Neurology Neurology with Special Qualifications in Child Neurology
DX: G93.9 Disorder of brain, unspecified (principal); Z98.890 Other specified postprocedural states
CPT/HCPCS: 70551

== ENCOUNTER → 2019-02-10 | Outpatient (CLI) | payer OTHER ==
[2018-12-05 11:00] VITALS: BP 129/73
[~2019-02-10] MED LIST changes: -CARB300C2 PO; +CARB300C8 PO; +OMEP40CA45 PO; -OMEP40CA5 PO
[2019-02-10 10:12] LABS: BASO % 1 % (0-3); EOS # 0.1 x10^3/uL (0.0-0.7); EOS % 2 % (0-3); HEMATOCRIT 36.3 % (36.0-47.0); HEMOGLOBIN 12.2 g/dL (12.0-15.5); LYMPH # 1.4 x10^3/uL (1.0-4.8); LYMPH % 22 % (24-48); MEAN CORPUSCULAR HEMOGLOBIN 29 pg (25-35); MEAN CORPUSCULAR HGB CONC 34 g/dL (31-37); MEAN CORPUSCULAR VOLUME 87 fL (79-100); MONO # 0.5 x10^3/uL (0.0-1.1); MONO % 7 % (0-9); NEUT # 4.4 x10^3/uL (1.8-7.7); NEUT % 68 % (31-73); PLATELET COUNT 229 x10^3/uL (140-400); RED BLOOD COUNT 4.19 x10^6/uL (3.50-5.40); RED CELL DISTRIBUTION WIDTH 12.4 % (11.5-14.5); WHITE BLOOD COUNT 6.4 x10^3/uL (4.0-11.0)
[2019-02-10 10:18] LABS: ALBUMIN 3.8 g/dL (3.4-5.0); CALCIUM 9.3 mg/dL (8.5-10.1); CREATININE 1.4 mg/dL (0.6-1.0); GFR 45.7; POTASSIUM 5.1 mmol/L (3.5-5.1)
== END | disposition home or self-care (01) ==
LOC: SURGPAT 09:21
PROVIDERS: ATTEND Surgery
DX: Z01.818 Encounter for other preprocedural examination (principal); H70.812 Postauricular fistula, left ear; Z88.8 Allergy status to other drugs, medicaments and biological substances
CPT/HCPCS: 36415; 80048; 82040; 85025

== ENCOUNTER 2019-02-17 10:59 | Day surgery (SDC) | payer OTHER ==
[~2019-02-17] VITALS: Ht 149.9 cm; Wt 81.5 kg
[~2019-02-17 10:59] MED LIST changes: +BUPIVACAINE-EPI 0.5%-1:200000 MPF 30 ML VIAL. INJ ONE; +HYDROmorphone 2 MG/ML VIAL IV PRN; +IV RINGERS,LACTATED 1000ML 1,000 ML IV SCH; +LIDOCAINE 1% PF 2 ML VIAL. ID PRN; +MORPHINE SULFATE 2 MG/ML VIAL. IV PRN; +ONDANSETRON PF 4 MG/2 ML VIAL. IV PRN; +PROCHLORPERAZINE 10 MG/2 ML VIAL. IV PRN; +fentaNYL PF VIAL 100 MCG/2 ML VIAL IV PRN
[2019-02-17] MEDS ORDERED: INSULIN LISPRO 100 UNIT/ML 3ML VIAL for OP,RR ONLY. SQ PRN (12:15)
[2019-02-17] MEDS ORDERED: fentaNYL PF VIAL 100 MCG/2 ML VIAL ONE (13:33)
[2019-02-17] MEDS ORDERED: LIDOCAINE 2% PF 5 ML VIAL. ONE (13:33)
[2019-02-17] MEDS ORDERED: DEXAMETHASONE SOD PHOS 4 MG/ML VIAL ONE (13:33)
[2019-02-17] MEDS ORDERED: PROPOFOL 20 ML IV ONE (13:33)
[2019-02-17] MEDS ORDERED: ONDANSETRON PF 4 MG/2 ML VIAL. ONE (13:33)
[2019-02-17] MEDS ORDERED: ePHEDrine PF IN SALINE 50 MG/10 ML SYRINGE. IV ONE (14:49)
[2019-02-17] MEDS ORDERED: ceFAZolin 2GM PREMIX 2 GM/50 ML BAG IV ONE (15:00)
[2019-02-17] MEDS ORDERED: SEVOFLURANE 31 TO 60 MINUTES. IH ONE (15:02)
[2019-02-17] MEDS ORDERED: NEOMY/BACITR/POLYMYXIN OINT PACKET. TP ONE (15:03)
--- NOTE | 2019-02-17 15:17 | DISCH ---
DISCHARGE INSTRUCTIONS Condition on Discharge Condition on Discharge: Stable Activity After Discharge Activity Instructions for Disc: Activity as tolerated, Avoid exertion Lifting Instructions after Dis: No heavy lifting Exercise Instruction after Dis: Progress as tolerated Driving Instructions after Dis: Do not drive today Weight Bearing Status after Di: As tolerated Diet after Discharge Diet after Discharge: Diabetic No Calorie Level Diet Texture: Regular Liquid Texture: Thin Liquid Swallowing Supervision: None needed Wound Incision Care Wound/Incision Care: Ice to area for comfort, No wound care needed Other wound/incision instructi: may shower Friday Checks after Discharge Checks after discharge: Check blood press - daily, Check blood sugar, ac/hs Contacting the DR. after DC Call your doctor for: Concerns you may have Follow-Up Follow up with: Sukhdeep 03/01 Treatment/Equipment after DC Adaptive Equipment Issued: Dima, BECKI Zambrano MD Feb 17, 2019 15:17
--- NOTE | 2019-02-17 15:22 | PDOC ---
BRIEF OPERATIVE NOTE Date: Feb 17, 2019 Pre-Op Diagnosis sebaceous abscess, right postauricular area Post-Op Diagnosis same Procedure Performed excision Surgeon Sukhdeep Anesthesia Type: General Blood Loss 10cc IV Fluid 450cc Specimens Obtained skin and subcutaneous tissue 4x2x1 cm Findings sebaceous abscess Complications none Operative Note # [id number] BECKI LAUREANO MD Feb 17, 2019 15:22
[2019-02-17] MEDS ORDERED: oxyCODONE IR 5 MG TABLET PO ONE (16:15)
[2019-02-17 16:30] VITALS: BP 155/68
--- NOTE | 2019-02-17 18:23 | OP ---
DATE OF SURGERY: 02/17/2019 PREOPERATIVE DIAGNOSIS: Sebaceous abscess, right postauricular area. POSTOPERATIVE DIAGNOSIS: Sebaceous abscess, right postauricular area. PROCEDURE: Excision. SPECIMENS: Skin and subcutaneous tissue, 4 x 2 x 1 cm. SURGEON: Becki Laureano MD ANESTHESIA: General LMA. BLOOD LOSS: 10 mL. INTRAVENOUS FLUIDS: 450 mL. DESCRIPTION OF PROCEDURE: The patient was brought to the operating suite, given a general LMA, placed in the left lateral decubitus position, and the right postauricular area was prepped and draped in usual sterile fashion. Skin incision was outlined with a marking pen to include the puncta and areas of superficial ulceration associated with the abscess. The area was infiltrated with 0.5% Marcaine with epinephrine and the skin was incised. The skin and underlying process were removed en bloc. Cavity was cultured, irrigated, checked for hemostasis, a correct sponge count obtained, and closed loosely with interrupted simple stitches of 3-0 nylon. Sterile dressing was applied. The patient was taken out of the lateral decubitus position, awakened from her anesthetic, and taken to the recovery room in satisfactory condition. BECKI LAUREANO MD DR: NADJA/mia JOB#: [id number] / [id number]
--- NOTE | 2019-02-22 16:06 | PATHOLOGY ---
[facility] Accession Number: [id number] . 01 Material submitted: . auricular canal - CYST, RIGHT POSTERIOR AURICULAR AREA. Modifiers: right, posterior . 01 Clinical history: . Sebaceous cyst. . 02 Diagnosis: Skin, "cyst right posterior auricular area", excision: - Ruptured epidermal inclusion cyst with associated foreign body giant cell reaction and acute abscess. (SKM:[facility]; 02/22/2019) QMS 02/22/2019 0706 Local . 02 Electronically signed: . Srinivas Marin MD, Pathologist NPI- [id number] . 01 Gross description: . Received in formalin labeled "Zhou, Ginny, cyst right posterior auricular area" is an intact patel-white cystic structure measuring 2.9 x 2.2 x 1.3 cm, with an attached ellipse of patel-brown skin measuring 4.2 x 1.5 x 0.4 cm. Upon sectioning, the cyst contains patel-white grumous material. [employer] sections are submitted in cassettes A1-A2. (SK; 02/18/2019) SY/SY 02/18/2019 1939 Local . 02 Pathologist provided ICD-10: L72.0 . 02 CPT . 736506 Specimen Comment: A courtesy copy of this report has been sent to [phone], [phone] Specimen Comment: [id number] Specimen Comment: Report sent to / DR BEY Specimen Comment: A duplicate report has been generated due to demographic updates. Performed at: 01 [facility] [address], [place], [place] [id number] MD Darryl Bryant MD Phone: [phone] Performed at: [address] [facility] [id number] MD Prateek Noe MD Phone: [phone]
== END 2019-02-17 17:08 | disposition home or self-care (01) ==
LOC: SURG 10:59
PROVIDERS: ATTEND Surgery
DX: H60.01 Abscess of right external ear (principal); I11.9 Hypertensive heart disease without heart failure; E78.00 Pure hypercholesterolemia, unspecified; Z87.891 Personal history of nicotine dependence; K21.9 Gastro-esophageal reflux disease without esophagitis; K59.00 Constipation, unspecified; E66.9 Obesity, unspecified; E11.9 Type 2 diabetes mellitus without complications; D64.9 Anemia, unspecified; F32.9 Major depressive disorder, single episode, unspecified; F41.9 Anxiety disorder, unspecified; E11.39 Type 2 diabetes mellitus with other diabetic ophthalmic complication; Z87.39 Personal history of other diseases of the musculoskeletal system and connective tissue; Z96.641 Presence of right artificial hip joint; Z98.42 Cataract extraction status, left eye; Z98.41 Cataract extraction status, right eye; Z90.721 Acquired absence of ovaries, unilateral; Z72.89 Other problems related to lifestyle; Z96.1 Presence of intraocular lens; Z79.84 Long term (current) use of oral hypoglycemic drugs; Z68.36 Body mass index [BMI] 36.0-36.9, adult
CPT/HCPCS: 69005; 82962; 87071; 87075; 88304; A7015; J0171; J0696; J1100; J2001; J2405; J2704; J3490; 87186; J3010

== ENCOUNTER 2019-02-18 21:37 | Emergency (ER) | payer OTHER ==
[~2019-02-18] VITALS: Ht 147.3 cm; Wt 81.2 kg
[~2019-02-18 21:37] MED LIST changes: -BUPIVACAINE-EPI 0.5%-1:200000 MPF 30 ML VIAL. INJ ONE; -HYDROmorphone 2 MG/ML VIAL IV PRN; -IV RINGERS,LACTATED 1000ML 1,000 ML IV SCH; -LIDOCAINE 1% PF 2 ML VIAL. ID PRN; -MORPHINE SULFATE 2 MG/ML VIAL. IV PRN; -ONDANSETRON PF 4 MG/2 ML VIAL. IV PRN; -PROCHLORPERAZINE 10 MG/2 ML VIAL. IV PRN; -fentaNYL PF VIAL 100 MCG/2 ML VIAL IV PRN
--- NOTE | 2019-02-18 21:52 | PHYS DOC ---
Past Medical History Past Medical History: Constipation, Depression, Diabetes-Type II, High Cholesterol, Hypertension, Other Additional Past Medical Histor: diabetic neuropathy,chronic rt hip pain, BRAIN SURGERY D/T TUMORS Past Surgical History: Hip Replacement, Other Additional Past Surgical Histo: R hip, CRANI WITH BRAIN MASS REMOVAL, PARTIAL HYSTERECTOMY Alcohol Use: None Drug Use: None Adult General Chief Complaint Chief Complaint: TREMORS HPI HPI ]63-year-old female presents to the emergency room with complaints of tremors. Patient has underlying history of hypertension, diabetes, depression, anxiety, seizure disorder. Patient states she can't find her grandson however cannot get any further information regarding where he is at. She states she lives alone. She states she has tremors on a regular basis however tonight, unable to calm down. She denies any chest pain, shortness breath, nausea, vomiting. She denies any headache or visual changes on exam. His not having seizure activity or tremors on my exam. Sounds as if stress may have induced her symptoms tonight. Review of Systems Review of Systems Constitutional: Denies fever or chills [] Respiratory: Denies cough or shortness of breath [] Cardiovascular: No additional information not addressed in HPI [] GI: Denies abdominal pain, nausea, vomiting, bloody stools or diarrhea [] Integument: Denies rash or skin lesions [] Neurologic: Denies headache, focal weakness or sensory changes [] All other systems were reviewed and found to be within normal limits, except as documented in this note. Current Medications Current Medications Current Medications Medications (Trade) Dose Ordered Sig/Jani Start Time Stop Time Status Last Admin Dose Admin Lorazepam (Ativan) 0.5 mg 1X ONCE 02/18/19 22:00 02/18/19 22:01 DC 02/18/19 22:03 0.5 MG Allergies Allergies Allergies Coded Allergies Type Severity Reaction Last Updated Verified Iodinated Contrast Media Allergy Intermediate Hives 02/17/19 Yes losartan Allergy Intermediate breaks out 02/17/19 Yes lisinopril Adverse Reaction Intermediate COUGH 02/17/19 Yes Physical Exam Physical Exam Constitutional: Well developed, well nourished, no acute distress, non-toxic appearance. Anxious[] HENT: Normocephalic, atraumatic, bilateral external ears normal, oropharynx moist, no oral exudates, nose normal. [] Eyes: PERRLA, EOMI, conjunctiva normal, no discharge. [] Cardiovascular:Heart rate regular rhythm, no murmur [] Lungs & Thorax: Bilateral breath sounds clear to auscultation [] Abdomen: Bowel sounds normal, soft, no tenderness, no masses, no pulsatile masses. [] Skin: Warm, dry, no erythema, no rash. [] Back: No tenderness, no CVA tenderness. [] Extremities: No tenderness, no edema. [] Neurologic: Alert and oriented X 3, no focal deficits noted. [] Psychologic: Anxious, tearful[] Current Patient Data Vital Signs Vital Signs Date Time Temp Pulse Resp B/P (MAP) Pulse Ox O2 Delivery O2 Flow Rate FiO2 02/18/19 21:45 98.2 88 16 196/91 (126) 97 Room Air 98.2 Lab Values Laboratory Tests Test 02/18/19 22:00 02/18/19 22:25 02/18/19 22:45 White Blood Count 6.4 x10^3/uL (4.0-11.0) Red Blood Count 3.82 x10^6/uL (3.50-5.40) Hemoglobin 11.4 g/dL (12.0-15.5) L Hematocrit 32.8 % (36.0-47.0) L Mean Corpuscular Volume 86 fL (79-100) Mean Corpuscular Hemoglobin 30 pg (25-35) Mean Corpuscular Hemoglobin Concent 35 g/dL (31-37) Red Cell Distribution Width 12.7 % (11.5-14.5) Platelet Count 234 x10^3/uL (140-400) Neutrophils (%) (Auto) 56 % (31-73) Lymphocytes (%) (Auto) 34 % (24-48) Monocytes (%) (Auto) 8 % (0-9) Eosinophils (%) (Auto) 2 % (0-3) Basophils (%) (Auto) 1 % (0-3) Neutrophils # (Auto) 3.6 x10^3/uL (1.8-7.7) Lymphocytes # (Auto) 2.2 x10^3/uL (1.0-4.8) Monocytes # (Auto) 0.5 x10^3/uL (0.0-1.1) Eosinophils # (Auto) 0.1 x10^3/uL (0.0-0.7) Basophils # (Auto) 0.0 x10^3/uL (0.0-0.2) Sodium Level 144 mmol/L (136-145) Potassium Level 3.5 mmol/L (3.5-5.1) Chloride Level 106 mmol/L (98-107) Carbon Dioxide Level 26 mmol/L (21-32) Anion Gap 12 (6-14) Blood Urea Nitrogen 18 mg/dL (7-20) Creatinine 1.3 mg/dL (0.6-1.0) H Estimated GFR (Cockcroft-Gault) 49.7 BUN/Creatinine Ratio 14 (6-20) Glucose Level 229 mg/dL (70-99) H Calcium Level 8.9 mg/dL (8.5-10.1) Total Bilirubin 0.1 mg/dL (0.2-1.0) L Aspartate Amino Transferase (AST) 28 U/L (15-37) Alanine Aminotransferase (ALT) 28 U/L (14-59) Alkaline Phosphatase 159 U/L (46-116) H Total Protein 7.1 g/dL (6.4-8.2) Albumin 3.6 g/dL (3.4-5.0) Albumin/Globulin Ratio 1.0 (1.0-1.7) Urine Collection Type Unknown Urine Color Yellow Urine Clarity Clear Urine pH 7.0 Urine Specific [place] 1.010 Urine Protein Negative mg/dL (NEG-TRACE) Urine Glucose (UA) 100 mg/dL (NEG) Urine Ketones (Stick) Negative mg/dL (NEG) Urine Blood Negative (NEG) Urine Nitrite Negative (NEG) Urine Bilirubin Negative (NEG) Urine Urobilinogen Dipstick 0.2 mg/dL (0.2 mg/dL) Urine Leukocyte Esterase Negative (NEG) Urine RBC 0 /HPF (0-2) Urine WBC 0 /HPF (0-4) Urine Squamous Epithelial Cells Few /LPF Urine Bacteria 0 /HPF (0-FEW) Laboratory Tests 02/18/19 22:00 Laboratory Tests 02/18/19 22:25 EKG EKG [] Radiology/Procedures Radiology/Procedures [] Course & Med Decision Making Course & Med Decision Making Pertinent Labs and Imaging studies reviewed. (See chart for details) []63-year-old female presents to the emergency room with complaints of tremors. Patient has underlying history of hypertension, diabetes, depression, anxiety, seizure disorder. Patient states she can't find her grandson however cannot get any further information regarding where he is at. She states she lives alone. She states she has tremors on a regular basis however tonight, unable to calm down. She denies any chest pain, shortness breath, nausea, vomiting. She denies any headache or visual changes on exam. His not having seizure activity or tremors on my exam. Sounds as if stress may have induced her symptoms tonight. Labs reviewed Plan for discharge home Ativan 0.5mg po x 1 No seizure activity in the ER Dragon Disclaimer Dragon Disclaimer This electronic medical record was generated, in whole or in part, using a voice recognition dictation system. Departure Departure Impression: Primary Impression: Twitching Additional Impression: History of seizure Disposition: 01 HOME, SELF-CARE Condition: STABLE Referrals: HESHAM BEY MD (PCP) Patient Instructions: Anxiety and Panic Attacks, Epym-fl-Unry, Seizure Disorder, Child, Generalized Tonic-Clonic Additional Instructions: Recommend follow up with PCP 3 - 5 days Return to the ER with worsening symptoms, intractable pain, fever, altered mental status Tylenol/Motrin as needed for pain Problem Qualifiers SEPIDEH AGUIRRE MD Feb 18, 2019 21:52
[2019-02-18] MEDS ORDERED: LORazepam 0.5 MG TABLET PO ONE (22:00)
[2019-02-18 22:12] LABS: BASO % 1 % (0-3); EOS # 0.1 x10^3/uL (0.0-0.7); EOS % 2 % (0-3); HEMATOCRIT 32.8 % (36.0-47.0); HEMOGLOBIN 11.4 g/dL (12.0-15.5); LYMPH # 2.2 x10^3/uL (1.0-4.8); LYMPH % 34 % (24-48); MEAN CORPUSCULAR HEMOGLOBIN 30 pg (25-35); MEAN CORPUSCULAR HGB CONC 35 g/dL (31-37); MEAN CORPUSCULAR VOLUME 86 fL (79-100); MONO # 0.5 x10^3/uL (0.0-1.1); MONO % 8 % (0-9); NEUT # 3.6 x10^3/uL (1.8-7.7); NEUT % 56 % (31-73); PLATELET COUNT 234 x10^3/uL (140-400); RED BLOOD COUNT 3.82 x10^6/uL (3.50-5.40); RED CELL DISTRIBUTION WIDTH 12.7 % (11.5-14.5); WHITE BLOOD COUNT 6.4 x10^3/uL (4.0-11.0)
[2019-02-18 22:42] VITALS: BP 187/84
[2019-02-18 22:43] LABS: CALCIUM 8.9 mg/dL (8.5-10.1); CREATININE 1.3 mg/dL (0.6-1.0); GFR 49.7; POTASSIUM 3.5 mmol/L (3.5-5.1)
[2019-02-18 22:48] LABS: ALBUMIN 3.6 g/dL (3.4-5.0); TOTAL BILIRUBIN 0.1 mg/dL (0.2-1.0); TOTAL PROTEIN 7.1 g/dL (6.4-8.2)
[2019-02-18 22:55] LABS: BILIRUBIN,URINE NEGATIVE (NEG); COLOR,URINE YELLOW; NITRITE,URINE NEGATIVE (NEG); PROTEIN,URINE NEGATIVE (NEG-TRACE); UROBILINOGEN,URINE 0.2 mg/dL (0.2 mg/dL)
[2019-02-18 23:01] LABS: BACTERIA,URINE 0 /HPF (0-FEW); CLARITY,URINE CLEAR; RBC,URINE 0 /HPF (0-2); SQUAMOUS EPITHELIAL CELL,UR FEW /LPF; WBC,URINE 0 /HPF (0-4)
== END 2019-02-18 23:15 | disposition home or self-care (01) ==
LOC: ER 21:37
DX: R25.3 Fasciculation (principal); G40.909 Epilepsy, unspecified, not intractable, without status epilepticus; I10 Essential (primary) hypertension; E11.9 Type 2 diabetes mellitus without complications; F32.9 Major depressive disorder, single episode, unspecified; F41.9 Anxiety disorder, unspecified; E78.00 Pure hypercholesterolemia, unspecified; G89.29 Other chronic pain; M25.551 Pain in right hip; Z91.041 Radiographic dye allergy status; Z88.8 Allergy status to other drugs, medicaments and biological substances
CPT/HCPCS: 36415; 80053; 81001; 85025; 99284

== ENCOUNTER 2019-04-02 00:41 | Emergency (ER) | payer OTHER ==
[~2019-04-02] VITALS: Ht 147.3 cm; Wt 81.2 kg
--- NOTE | 2019-04-02 01:21 | RAD ---
CT HEAD INDICATION: Headache COMPARISON: 12/03/2018 Exposure: One or more of the following individualized dose reduction techniques were utilized for this examination: 1. Automated exposure control 2. Adjustment of the mA and/or kV according to patient size 3. Use of iterative reconstruction technique TECHNIQUE: 5 mm contiguous axial images were obtained from the skull base to the vertex in both bone and soft tissue algorithm. FINDINGS: Right parietal cranioplasty changes. Left frontal superior vertex 1 cm calcified density probably meningioma, unchanged. No evidence of acute intracranial hemorrhage. No extra-axial fluid collections. No mass effect or midline shift. Ventricular size is appropriate. Basal cisterns are patent. No fractures identified.Becker-white differentiation is preserved.Globes and orbits are within normal limits. Paranasal sinuses and mastoid air cells are clear. IMPRESSION: No acute intracranial findings. Electronically signed by: Deangelo Potter MD (04/02/2019 1:18 AM) [facility]
[2019-04-02 01:53] LABS: BASO % 1 % (0-3); EOS # 0.2 x10^3/uL (0.0-0.7); EOS % 3 % (0-3); HEMATOCRIT 33.3 % (36.0-47.0); HEMOGLOBIN 11.3 g/dL (12.0-15.5); LYMPH # 1.9 x10^3/uL (1.0-4.8); LYMPH % 28 % (24-48); MEAN CORPUSCULAR HEMOGLOBIN 30 pg (25-35); MEAN CORPUSCULAR HGB CONC 34 g/dL (31-37); MEAN CORPUSCULAR VOLUME 87 fL (79-100); MONO # 0.5 x10^3/uL (0.0-1.1); MONO % 8 % (0-9); NEUT # 4.1 x10^3/uL (1.8-7.7); NEUT % 61 % (31-73); PLATELET COUNT 239 x10^3/uL (140-400); RED BLOOD COUNT 3.85 x10^6/uL (3.50-5.40); RED CELL DISTRIBUTION WIDTH 12.9 % (11.5-14.5); WHITE BLOOD COUNT 6.7 x10^3/uL (4.0-11.0)
[2019-04-02 02:05] LABS: PROTHROMBIN TIME PATIENT 12.1 SEC (11.7-14.0)
[2019-04-02 02:07] LABS: CALCIUM 9.3 mg/dL (8.5-10.1); CREATININE 1.1 mg/dL (0.6-1.0); GFR 60.3; POTASSIUM 3.7 mmol/L (3.5-5.1)
--- NOTE | 2019-04-02 02:10 | PHYS DOC ---
Past Medical History Past Medical History: Anxiety, Constipation, Depression, Diabetes-Type II, High Cholesterol, Hypertension, Other Additional Past Medical Histor: diabetic neuropathy,chronic rt hip pain, BRAIN SURGERY D/T TUMORS Past Surgical History: Hip Replacement, Other Additional Past Surgical Histo: R hip, CRANI WITH BRAIN MASS REMOVAL, PARTIAL HYSTERECTOMY, BENIGN CYSTS Alcohol Use: None Drug Use: None Adult General Chief Complaint Chief Complaint: ALTERED MENTAL STATUS [facility] HPI Patient is a 63 year old who was brought here by EMS for evaluation of headache that she been experiencing for the last 2 days. She denies any nausea vomiting. Patient had taken her pain medication at home already but still having headaches. Patient has history of brain mass removal last year. She denies any fever, no nausea vomiting. She denies any chest pain, no cough, no trouble breathing. All other ROS is negative unless otherwise noted in HPI Review of Systems Review of Systems See above Current Medications Current Medications Current Medications Medications (Trade) Dose Ordered Sig/Jani Start Time Stop Time Status Last Admin Dose Admin Ketorolac Tromethamine (Toradol 30mg Vial) 30 mg 1X ONCE 04/02/19 02:45 04/02/19 02:46 DC 04/02/19 02:43 30 MG Allergies Allergies Allergies Coded Allergies Type Severity Reaction Last Updated Verified Iodinated Contrast Media Allergy Intermediate Hives 02/17/19 Yes losartan Allergy Intermediate breaks out 02/17/19 Yes lisinopril Adverse Reaction Intermediate COUGH 02/17/19 Yes Physical Exam Physical Exam See above Constitutional: Well developed, well nourished, no acute distress, non-toxic appearance. [] HENT: Normocephalic, atraumatic, bilateral external ears normal, oropharynx moist, no oral exudates, nose normal. [] Eyes: PERRLA, EOMI, conjunctiva normal, no discharge. [] Neck: Normal range of motion, no tenderness, supple, no stridor. [] Cardiovascular:Heart rate regular rhythm, no murmur [] Lungs & Thorax: Bilateral breath sounds clear to auscultation [] Abdomen: Bowel sounds normal, soft, no tenderness, no masses, no pulsatile masses. [] Skin: Warm, dry, no erythema, no rash. [] Back: No tenderness, no CVA tenderness. [] Extremities: No tenderness, no cyanosis, no clubbing, ROM intact, no edema. [] Neurologic: Alert and oriented X 3, normal motor function, normal sensory function, no focal deficits noted. [] Psychologic: Affect normal, judgement normal, mood normal. [] Current Patient Data Vital Signs Vital Signs Date Time Temp Pulse Resp B/P (MAP) Pulse Ox O2 Delivery O2 Flow Rate FiO2 04/02/19 04:23 73 16 96 04/02/19 00:41 97.9 163/77 (105) Room Air 97.9 Lab Values Laboratory Tests Test 04/02/19 00:47 04/02/19 01:26 04/02/19 02:01 04/02/19 02:18 Glucose (Fingerstick) 67 mg/dL (70-99) L 82 mg/dL (70-99) White Blood Count 6.7 x10^3/uL (4.0-11.0) Red Blood Count 3.85 x10^6/uL (3.50-5.40) Hemoglobin 11.3 g/dL (12.0-15.5) L Hematocrit 33.3 % (36.0-47.0) L Mean Corpuscular Volume 87 fL (79-100) Mean Corpuscular Hemoglobin 30 pg (25-35) Mean Corpuscular Hemoglobin Concent 34 g/dL (31-37) Red Cell Distribution Width 12.9 % (11.5-14.5) Platelet Count 239 x10^3/uL (140-400) Neutrophils (%) (Auto) 61 % (31-73) Lymphocytes (%) (Auto) 28 % (24-48) Monocytes (%) (Auto) 8 % (0-9) Eosinophils (%) (Auto) 3 % (0-3) Basophils (%) (Auto) 1 % (0-3) Neutrophils # (Auto) 4.1 x10^3/uL (1.8-7.7) Lymphocytes # (Auto) 1.9 x10^3/uL (1.0-4.8) Monocytes # (Auto) 0.5 x10^3/uL (0.0-1.1) Eosinophils # (Auto) 0.2 x10^3/uL (0.0-0.7) Basophils # (Auto) 0.0 x10^3/uL (0.0-0.2) Prothrombin Time 12.1 SEC (11.7-14.0) Prothrombin Time INR 0.9 (0.8-1.1) Activated Partial Thromboplast Time 30 SEC (24-38) Sodium Level 143 mmol/L (136-145) Potassium Level 3.7 mmol/L (3.5-5.1) Chloride Level 106 mmol/L (98-107) Carbon Dioxide Level 26 mmol/L (21-32) Anion Gap 11 (6-14) Blood Urea Nitrogen 22 mg/dL (7-20) H Creatinine 1.1 mg/dL (0.6-1.0) H Estimated GFR (Cockcroft-Gault) 60.3 BUN/Creatinine Ratio 20 (6-20) Glucose Level 88 mg/dL (70-99) Calcium Level 9.3 mg/dL (8.5-10.1) Total Bilirubin 0.1 mg/dL (0.2-1.0) L Aspartate Amino Transferase (AST) 14 U/L (15-37) L Alanine Aminotransferase (ALT) 23 U/L (14-59) Alkaline Phosphatase 140 U/L (46-116) H Total Protein 6.9 g/dL (6.4-8.2) Albumin 3.6 g/dL (3.4-5.0) Albumin/Globulin Ratio 1.1 (1.0-1.7) Urine Collection Type Unknown Urine Color Yellow Urine Clarity Clear Urine pH 7.0 Urine Specific [place] 1.020 Urine Protein Negative mg/dL (NEG-TRACE) Urine Glucose (UA) Negative mg/dL (NEG) Urine Ketones (Stick) Negative mg/dL (NEG) Urine Blood Negative (NEG) Urine Nitrite Negative (NEG) Urine Bilirubin Negative (NEG) Urine Urobilinogen Dipstick 1.0 mg/dL (0.2 mg/dL) Urine Leukocyte Esterase Negative (NEG) Urine RBC 0 /HPF (0-2) Urine WBC 1-4 /HPF (0-4) Urine Squamous Epithelial Cells Mod /LPF Urine Bacteria Few /HPF (0-FEW) Urine Mucus Slight /LPF Laboratory Tests 04/02/19 01:26 Laboratory Tests 04/02/19 01:26 EKG EKG EKG WAS READ BY THIS PHYSICIAN AT 0123, RATE OF 76 BPM, NO STEMI. [] Radiology/Procedures Radiology/Procedures [][facility] [address] [place] [address] IMAGING REPORT Signed PATIENT: JULITA BEY ACCOUNT: [id number] : 1955 LOCATION: ER AGE: 63 SEX: F EXAM STATUS: REG ER ORD. PHYSICIAN: CAMERON REECE DO REASON: headache;HX BRAIN TUMOR REMOVAL SURGERY 04/07 PROCEDURE: CT HEAD WO CONTRAST CT HEAD INDICATION: Headache COMPARISON: 12/03/2018 Exposure: One or more of the following individualized dose reduction techniques were utilized for this examination: 1. Automated exposure control 2. Adjustment of the mA and/or kV according to patient size 3. Use of iterative reconstruction technique TECHNIQUE: 5 mm contiguous axial images were obtained from the skull base to the vertex in both bone and soft tissue algorithm. FINDINGS: Right parietal cranioplasty changes. Left frontal superior vertex 1 cm calcified density probably meningioma, unchanged. No evidence of acute intracranial hemorrhage. No extra-axial fluid collections. No mass effect or midline shift. Ventricular size is appropriate. Basal cisterns are patent. No fractures identified.Becker-white differentiation is preserved.Globes and orbits are within normal limits. Paranasal sinuses and mastoid air cells are clear. IMPRESSION: No acute intracranial findings. Electronically signed by: Deangelo Potter MD (04/02/2019 1:18 AM) [facility] DICTATED and SIGNED BY: DEANGELO POTTER MD DATE: 04/02/19 0118 Course & Med Decision Making Course & Med Decision Making Pertinent Labs and Imaging studies reviewed. (See chart for details) []She was given medication in the ER, she felt much better. Patient had CT scan the head did not show any acute problem. Patient will be discharged home. Dragon Disclaimer Dragon Disclaimer This electronic medical record was generated, in whole or in part, using a voice recognition dictation system. Departure Departure Impression: Primary Impression: Headache Disposition: HOME, SELF-CARE Condition: IMPROVED Referrals: HESHAM BEY MD (PCP) PLEASE CALL YOUR DOCTOR ON FRIDAY FOR FOLLOW UP. Patient Instructions: General Headache Without Cause CAMERON REECE DO Apr 02, 2019 02:10
[2019-04-02 02:12] LABS: BILIRUBIN,URINE NEGATIVE (NEG); CLARITY,URINE CLEAR; COLOR,URINE YELLOW; NITRITE,URINE NEGATIVE (NEG); PROTEIN,URINE NEGATIVE (NEG-TRACE)
[2019-04-02 02:13] LABS: ALBUMIN 3.6 g/dL (3.4-5.0); ALBUMIN/GLOBULIN RATIO 1.1 (1.0-1.7); TOTAL BILIRUBIN 0.1 mg/dL (0.2-1.0); TOTAL PROTEIN 6.9 g/dL (6.4-8.2)
[2019-04-02 02:40] LABS: BACTERIA,URINE FEW /HPF (0-FEW); RBC,URINE 0 /HPF (0-2); SQUAMOUS EPITHELIAL CELL,UR MOD /LPF
[2019-04-02] MEDS ORDERED: KETOROLAC 30 MG/ML VIAL. IVP ONE (02:45)
[2019-04-02 04:23] VITALS: BP 149/67
--- NOTE | 2019-04-02 07:29 | EKG ---
[facility] [address] [place] [address] Test Date: 2019-04-02 Test Time: 00:51:39 Pat Name: JULITA BEY Department: Room: Gender: F Concreter: : 1955 Requested By: CAMERON REECE Order Number: [id number] Reading MD: Measurements Intervals [place] Rate: 76 P: 44 [place]: 188 QRS: -9 QRSD: 86 T: 55 QT: 390 QTc: 443 Interpretive Statements SINUS RHYTHM LEFTWARD AXIS QRS(T) CONTOUR ABNORMALITY CONSIDER INFERIOR MYOCARDIAL DAMAGE POSSIBLY ABNORMAL ECG No previous ECG available for comparison
== END 2019-04-02 04:30 | disposition home or self-care (01) ==
LOC: ER 00:41
DX: R51 Headache (principal); I10 Essential (primary) hypertension; F41.9 Anxiety disorder, unspecified; F32.9 Major depressive disorder, single episode, unspecified; E78.00 Pure hypercholesterolemia, unspecified; E11.40 Type 2 diabetes mellitus with diabetic neuropathy, unspecified; G89.29 Other chronic pain; Z98.890 Other specified postprocedural states; Z91.041 Radiographic dye allergy status; Z88.8 Allergy status to other drugs, medicaments and biological substances
CPT/HCPCS: 36415; 70450; 80053; 80177; 81001; 82962; 85025; 85610; 85730; 93005; 96374; 99285; J1885

== ENCOUNTER → 2019-10-01 | Outpatient (CLI) | payer OTHER ==
[~2019-10-01] MED LIST changes: -WARF-78 PO; +WARF5TAB2 PO
--- NOTE | 2019-10-01 17:33 | KCIC ---
Bilateral digital screening mammograms with 3-D tomosynthesis: Reason for examination: Routine screening. Comparison is made to previous studies dated back to 02/28/2012. Bilateral mammograms in CC and oblique projections were obtained with 2-D imaging and 3-D tomosynthesis imaging on a Siemens Inspiration unit and reviewed on the workstation. Interpretation was made with the benefit of CAD. The skin and nipples show no abnormalities. No abnormal axillary lymph nodes are seen. The breast parenchyma shows scattered fatty and fibroglandular density. (Breast density: Category B.) There continue to be multiple small benign-appearing nodules. There are no new dominant masses, suspicious calcifications or architectural distortion. Impression: No evidence of malignancy. Recommend routine screening. BI-RAD Category 2: Benign. "Our facility is accredited by the [employer] Mammography Program." This patient's information has been entered into a reminder system for the patient to be notified with the results of her examination and a target date for the next mammogram. Electronically signed by: Liseth Casarez MD (10/01/2019 5:30 PM) [id number]
== END ==
LOC: KCIC MAMMO 12:29
PROVIDERS: ATTEND Family Medicine
DX: Z12.31 Encounter for screening mammogram for malignant neoplasm of breast (principal)
CPT/HCPCS: 77063; 77067

== ENCOUNTER → 2020-01-10 | Outpatient (CLI) | payer OTHER ==
[~2020-01-10] MED LIST changes: +GADOTERATE 7.5 MMOL/15ML VIAL. IVP ONE
--- NOTE | 2020-01-10 14:25 | KCIC ---
MRI Brain with and without contrast History:Meningioma, seizure disorder, headaches Technique: Multiplanar, multi sequential pre and postcontrast MR imaging was performed of the brain. Comparison: Noncontrast exam January 05, 2019; June 10, 2018; April 09, 2018 Findings: As seen previously, there has been right frontal parietal craniotomy. There is no new abnormal intracranial enhancement, no new enhancement underlying the craniotomy site. There is again small focus of extra-axial enhancement at the left frontal parietal vertex about 12 mm AP by 5 mm CC by 11 mm transverse overall similar to March 2018 exam. Ventricular size is stable, within normal limits. There is again mild T2 and FLAIR hyperintense signal abnormality of the supratentorial parenchyma bilaterally. There is no evidence of recent infarct or cytotoxic edema. There is some patchy fluid and thickening of the mastoid air cells bilaterally as seen previously. There is preservation of the major arterial intracranial flow-voids at the skull base. There has been lens surgery bilaterally. There is increased CSF signal of the optic nerve sheaths bilaterally as seen previously. Frontal sinus is not pneumatized. There is negligible patchy ethmoid air cell mucosal thickening. Cerebellar tonsils are normal in location. There is preserved marrow signal of the clivus. There is no abnormality of pineal gland or pituitary gland. Impression: 1. There is no new abnormal intracranial enhancement, no new abnormal enhancement underlying right frontal parietal craniotomy. There is stable extra-axial enhancing mass at the left frontal parietal vertex, evidence of meningioma. Minimal T2 and FLAIR hyperintense signal of the supratentorial parenchyma is nonspecific, more commonly due to chronic microvascular ischemic disease in a patient this age. Electronically signed by: Clemente Burr MD (01/10/2020 2:22 PM) [id number]
== END ==
LOC: KCIC MRI 12:20
PROVIDERS: ATTEND Psychiatry & Neurology Neurology with Special Qualifications in Child Neurology
DX: R22.0 Localized swelling, mass and lump, head (principal); G40.109 Localization-related (focal) (partial) symptomatic epilepsy and epileptic syndromes with simple partial seizures, not intractable, without status epilepticus; D32.9 Benign neoplasm of meninges, unspecified; I67.82 Cerebral ischemia
CPT/HCPCS: 70553; 82565; A9575

== ENCOUNTER 2020-01-24 20:37 | Emergency (ER) | payer OTHER ==
[~2020-01-24] VITALS: Ht 147.3 cm; Wt 81.0 kg
[~2020-01-24 20:37] MED LIST changes: -GADOTERATE 7.5 MMOL/15ML VIAL. IVP ONE
[2020-01-24] MEDS ORDERED: levETIRAcetam 1,000 MG in IV DEXTROSE 5% 100ML 100 ML IV ONE (21:00)
--- NOTE | 2020-01-24 21:07 | PHYS DOC ---
Past Medical History Past Medical History: Anxiety, Constipation, Depression, Diabetes-Type II, High Cholesterol, Hypertension, Other Additional Past Medical Histor: diabetic neuropathy,chronic rt hip pain, BRAIN SURGERY D/T TUMORS Past Surgical History: Hip Replacement, Other Additional Past Surgical Histo: R hip, CRANI WITH BRAIN MASS REMOVAL, PARTIAL HYSTERECTOMY, BENIGN CYSTS Smoking Status: Former Smoker Alcohol Use: None Drug Use: None General Adult EDM: Chief Complaint: TREMORS HPI: HPI: Patient is a 64 year old female with history of anxiety, hypertension, high cholesterol, diabetes type 2, seizures, who presents to the ED today complaining of tremors. Patient states she is on 20 medications daily. She states she opened up her evening pill pack for today and it was empty. She states she he could not remember if she took the medicine or not. She states she called ask a nurse and she was sent to the ED to be evaluated. Review of Systems: Review of Systems: Constitutional: Medication concern. Denies fever or chills. [] Eyes: Denies change in visual acuity. [] HENT: Denies nasal congestion or sore throat. [] Respiratory: Denies cough or shortness of breath. [] Cardiovascular: Denies chest pain or edema. [] GI: Denies abdominal pain, nausea, vomiting, bloody stools or diarrhea. [] : Denies dysuria. [] Musculoskeletal: Denies back pain or joint pain. [] Integument: Denies rash. [] Neurologic: Reports tremor. Denies headache, focal weakness or sensory changes. [] Psychiatric: Denies depression or anxiety. [] Heart Score: Risk Factors: Risk Factors: DM, Current or recent (<one month) smoker, HTN, HLP, family history of CAD, obesity. Risk Scores: Score 0 - 3: 2.5% MACE over next 6 weeks - Discharge Home Score 4 - 6: 20.3% MACE over next 6 weeks - Admit for Clinical Observation Score 7 - 10: 72.7% MACE over next 6 weeks - Early Invasive Strategies Current Medications: Current Medications Medications (Trade) Dose Ordered Sig/Jani Start Time Stop Time Status Last Admin Dose Admin Levetiracetam 1000 mg/Dextrose 110 ml @ 440 mls/hr 1X ONCE 01/24/20 21:00 01/24/20 21:14 Allergies: Allergies: Allergies Coded Allergies Type Severity Reaction Last Updated Verified Iodinated Contrast Media Allergy Intermediate Hives 02/17/19 Yes losartan Allergy Intermediate breaks out 02/17/19 Yes diphtheria,pertussis (acellular),te Allergy Unknown 01/10/20 Yes lisinopril Adverse Reaction Intermediate COUGH 02/17/19 Yes Physical Exam: PE: Constitutional: Well developed, well nourished, no acute distress, non-toxic appearance. [] HENT: Normocephalic, atraumatic, bilateral external ears normal, oropharynx moist, no oral exudates, nose normal. [] Eyes: PERRLA, EOMI, conjunctiva normal, no discharge. [] Neck: Normal range of motion, no tenderness, supple, no stridor. [] Cardiovascular:Heart rate regular rhythm, no murmur [] Lungs & Thorax: Bilateral breath sounds clear to auscultation [] Abdomen: Bowel sounds normal, soft, no tenderness, no masses, no pulsatile masses. [] Skin: Warm, dry, no erythema, no rash. [] Back: No tenderness, no CVA tenderness. [] Extremities: No tenderness, no cyanosis, no clubbing, ROM intact, no edema. [] Neurologic: Alert and oriented X 3, normal motor function, normal sensory function, no focal deficits noted. Cranial nerves II through XII intact Psychologic: Affect normal, judgement normal, mood normal. [] Current Patient Data: Vital Signs: Vital Signs Date Time Temp Pulse Resp B/P (MAP) Pulse Ox O2 Delivery O2 Flow Rate FiO2 01/24/20 20:42 98.3 84 18 184/79 (114) 94 Room Air 98.3 EKG: EKG: [] Radiology/Procedures: Radiology/Procedures: []PROCEDURE: CT HEAD WO CONTRAST CT head without contrast dated 01/24/2020. Comparison made to 04/02/2019. CLINICAL INDICATION: Tremors. TECHNIQUE: Contiguous axial imaging the head was performed from skull base to vertex. No contrast administered. One or more of the following individualized dose reduction techniques were utilized for this examination: 1. Automated exposure control 2. Adjustment of the mA and/or kV according to patient size 3. Use of iterative reconstruction technique. FINDINGS: Ventricles and sulci are mildly prominent for age. No midline shift or mass effect. Brain parenchyma is of normal attenuation. No hemorrhage or extra axial collection. Posterior fossa and brainstem unremarkable. There is evidence of prior right frontal craniectomy with surgical plate in place, unchanged.. Paranasal sinuses and mastoid air cells are clear. No acute calvarial abnormality. IMPRESSION: 1. No evidence of acute intracranial hemorrhage or mass. 2. Status post right frontal craniectomy with surgical plate and place, unchanged. Electronically signed by: Yang Mast MD (01/24/2020 10:15 PM) [facility] DICTATED and SIGNED BY: YANG MAST MD DATE: 01/24/202214 Course & Med Decision Making: Course & Med Decision Making Pertinent Labs and Imaging studies reviewed. (See chart for details) This is a 64-year-old female patient with history of seizures who presents to the ED today concerned she could have missed or not taken her medication for this evening. Patient reports opening up her evening pill pack and noted it was empty. She has no recollection if she took the medicine or not. CT of the head is negative for any acute findings, CBC with a normal WBC, troponin is normal, hemoglobin 9.4, hematocrit 28.4, this is around patient's baseline, BUN is normal, creatinine 1.6, patient has history of renal insufficiency. Lactic is 2.4-she could have had a seizure considering she states she had tremors. Carbamazepine level is 8.0. Patient was given Keppra in the ED. Discharge to home. She states she has somebody who does her medicines at home. Encourage her to work with this person and make sure on her medicines are given on time and the right and doses given. Follow-up with PCP next week Zechariah Disclaimer: Zechariah Disclaimer: This electronic medical record was generated, in whole or in part, using a voice recognition dictation system. Departure Departure Impression: Primary Impression: Tremor Additional Impression: Assessed for drug overuse Disposition: HOME, SELF-CARE Condition: STABLE Referrals: HESHAM BEY MD (PCP) Follow-up in the course of this week Patient Instructions: Tremor Additional Instructions: You were evaluated in the emergency room, there was nothing acute in your work- up. Follow-up with your doctor in this week. Ensure the person doing your pills is managing the medicines and you are taking the right dose is at the right time. LM BARR APRN Jan 24, 2020 21:07
[2020-01-24 21:14] LABS: BASO # 0.1 x10^3/uL (0.0-0.2); BASO % 1 % (0-3); EOS # 0.1 x10^3/uL (0.0-0.7); EOS % 2 % (0-3); HEMATOCRIT 28.4 % (36.0-47.0); HEMOGLOBIN 9.4 g/dL (12.0-15.5); LYMPH # 2.1 x10^3/uL (1.0-4.8); LYMPH % 28 % (24-48); MEAN CORPUSCULAR HEMOGLOBIN 26 pg (25-35); MEAN CORPUSCULAR HGB CONC 33 g/dL (31-37); MEAN CORPUSCULAR VOLUME 78 fL (79-100); MONO # 0.5 x10^3/uL (0.0-1.1); MONO % 7 % (0-9); NEUT # 4.6 x10^3/uL (1.8-7.7); NEUT % 62 % (31-73); PLATELET COUNT 265 x10^3/uL (140-400); RED BLOOD COUNT 3.64 x10^6/uL (3.50-5.40); WHITE BLOOD COUNT 7.4 x10^3/uL (4.0-11.0)
[2020-01-24 21:26] LABS: ANION GAP 10 (6-14); BLOOD UREA NITROGEN 18 mg/dL (7-20); BUN/CREATININE RATIO 11 (6-20); CALCIUM 9.4 mg/dL (8.5-10.1); CARBON DIOXIDE 24 mmol/L (21-32); CHLORIDE 105 mmol/L (98-107); CREATININE 1.6 mg/dL (0.6-1.0); GLUCOSE 250 mg/dL (70-99); POTASSIUM 4.5 mmol/L (3.5-5.1); SODIUM 139 mmol/L (136-145)
[2020-01-24 21:32] LABS: ALBUMIN 3.5 g/dL (3.4-5.0); ALBUMIN/GLOBULIN RATIO 0.9 (1.0-1.7); ALK PHOS 134 U/L (46-116); ALT (SGPT) 25 U/L (14-59); AST (SGOT) 17 U/L (15-37); MAGNESIUM 1.9 mg/dL (1.8-2.4); TOTAL BILIRUBIN 0.1 mg/dL (0.2-1.0); TOTAL PROTEIN 7.2 g/dL (6.4-8.2)
[2020-01-24 21:34] LABS: BILIRUBIN,URINE NEGATIVE (NEG); CLARITY,URINE CLEAR; COLOR,URINE YELLOW; NITRITE,URINE NEGATIVE (NEG); PROTEIN,URINE NEGATIVE (NEG-TRACE); UROBILINOGEN,URINE 0.2 mg/dL (0.2 mg/dL)
[2020-01-24 21:38] LABS: CARBAM 8.1 mcg/mL (4.0-12.0)
[2020-01-24 21:44] LABS: BACTERIA,URINE FEW /HPF (0-FEW)
[2020-01-24 21:52] LABS: BARBITURATES NEG (NEG); BENZODIAZEPINES NEG (NEG); CANNABINOIDS NEG (NEG); COCAINE NEG (NEG); METHADONE NEG (NEG); OPIATES NEG (NEG); PHENCYCLIDINE NEG (NEG)
[2020-01-24 21:53] LABS: AMPHETAMINE/METHAMPHETAMINE NEG (NEG)
--- NOTE | 2020-01-24 22:18 | RAD ---
CT head without contrast dated 01/24/2020. Comparison made to 04/02/2019. CLINICAL INDICATION: Tremors. TECHNIQUE: Contiguous axial imaging the head was performed from skull base to vertex. No contrast administered. One or more of the following individualized dose reduction techniques were utilized for this examination: 1. Automated exposure control 2. Adjustment of the mA and/or kV according to patient size 3. Use of iterative reconstruction technique. FINDINGS: Ventricles and sulci are mildly prominent for age. No midline shift or mass effect. Brain parenchyma is of normal attenuation. No hemorrhage or extra axial collection. Posterior fossa and brainstem unremarkable. There is evidence of prior right frontal craniectomy with surgical plate in place, unchanged.. Paranasal sinuses and mastoid air cells are clear. No acute calvarial abnormality. IMPRESSION: 1. No evidence of acute intracranial hemorrhage or mass. 2. Status post right frontal craniectomy with surgical plate and place, unchanged. Electronically signed by: Yang Mast MD (01/24/2020 10:15 PM) DORA
[2020-01-24 23:30] VITALS: BP 158/68
== END 2020-01-25 00:29 | disposition home or self-care (01) ==
LOC: ER 20:37
DX: R25.1 Tremor, unspecified (principal); F41.9 Anxiety disorder, unspecified; F32.9 Major depressive disorder, single episode, unspecified; E78.00 Pure hypercholesterolemia, unspecified; I10 Essential (primary) hypertension; E11.40 Type 2 diabetes mellitus with diabetic neuropathy, unspecified; G89.29 Other chronic pain; Z98.890 Other specified postprocedural states; Z87.891 Personal history of nicotine dependence; Z91.040 Latex allergy status; Z88.8 Allergy status to other drugs, medicaments and biological substances; Z88.7 Allergy status to serum and vaccine
CPT/HCPCS: 70450; 80053; 80156; 80177; 80307; 81001; 83605; 83735; 83880; 84443; 84484; 85025; 96365; 99285; G0480; J1953; J7060

== ENCOUNTER 2020-08-01 14:05 | Observation (INO) | payer OTHER ==
[~2020-08-01] VITALS: Ht 147.3 cm; Wt 87.0 kg
[2020-08-01] VITALS (7 sets, daily range): BP systolic 132–157; BP diastolic 56–72
[~2020-08-01 14:05] MED LIST changes: +AMLO-186 PO; +AMLO-187 PO; -AMLO10TA8 PO; -AMLO5TAB10 PO; +BUPR150T21 PO; -BUPR150T6 PO; -CARB200O5 PO; +SERT-267 PO; -SERT50TA8 PO; +[UNRECOGNIZED DRUG - CODE] PO
[2020-08-01] MEDS ORDERED: IV NORMAL SALINE 1000ML BAG 1,000 ML IV ONE (14:30)
[2020-08-01] MEDS ORDERED: PROCHLORPERAZINE 10 MG/2 ML VIAL. IV ONE (14:30)
[2020-08-01] MEDS ORDERED: DEXAMETHASONE SOD PHOS 4 MG/ML VIAL IVP ONE (14:30)
[2020-08-01] MEDS ORDERED: diphenhydrAMINE HCL 25 MG CAPSULE PO ONE (14:30)
--- NOTE | 2020-08-01 14:42 | RAD ---
EXAM: Head CT without contrast. HISTORY: Headache. Dizziness. TECHNIQUE: Computed tomographic images of the head were obtained without contrast. *One or more of the following individualized dose reduction techniques were utilized for this examina tion: 1. Automated exposure control. 2. Adjustment of the mA and/or kV according to patient size. 3. Use of iterative reconstruction technique. COMPARISON: 01/24/2020. FINDINGS: There is no acute or subacute extra-axial or intraparenchymal hemorrhage. There is no mass effect or midline shift. There is no hydrocephalus. There are areas of decreased attenuation within the cerebral white matter, nonspecific and likely rel ated to chronic small vessel disease. There are right frontotemporal craniotomy changes and suspected surgical plate. There is a partially calcified mass along the inner table of the left frontal bone at the vertex, better characterized on an MRI dated 01/09/2021. There is a bone island within the clivus. There is opacification of the right mastoid air cells. IMPRESSION: 1. No acute intracranial finding. 2. Right sided craniotomy changes. 3. Stable partially calcified mass along the inner table of the left parietal bone. Appearance favors a meningioma on the prior MRI. 4. Bilateral cerebral white matter changes, likely due to chronic small vessel disease. 5. Right mastoid fluid. Electronically signed by: Sulema Ricketts MD (08/01/2020 2:40 PM) [facility]
--- NOTE | 2020-08-01 14:44 | RAD ---
EXAM: XR CHEST 1V 08/01/2020 2:27 PM CLINICAL INDICATION: Dizzy COMPARISON: Chest radiograph 12/03/2018 TECHNIQUE: AP upright view of the chest. FINDINGS: The heart and mediastinum are normal. Lungs are well-expanded and clear. No consolidatio n, pleural effusion, or pneumothorax. Pulmonary vascularity is normal. The thoracic skeleton is int act. IMPRESSION: No acute cardiopulmonary abnormality. Electronically signed by: Maria Isabel Erickson MD (08/01/2020 2:42 PM) [id number]
[2020-08-01 15:12] LABS: BASO % 0 % (0-3); EOS # 0.1 x10^3/uL (0.0-0.7); EOS % 1 % (0-3); LYMPH # 1.2 x10^3/uL (1.0-4.8); LYMPH % 15 % (24-48); MEAN CORPUSCULAR HEMOGLOBIN 21 pg (25-35); MEAN CORPUSCULAR HGB CONC 31 g/dL (31-37); MEAN CORPUSCULAR VOLUME 66 fL (79-100); MONO # 0.6 x10^3/uL (0.0-1.1); MONO % 8 % (0-9); NEUT % 76 % (31-73); PLATELET COUNT 310 x10^3/uL (140-400); RED CELL DISTRIBUTION WIDTH 16.8 % (11.5-14.5); WHITE BLOOD COUNT 7.9 x10^3/uL (4.0-11.0)
[2020-08-01 15:14] LABS: HEMOGLOBIN 6.1 g/dL (12.0-15.5)
[2020-08-01 15:15] LABS: HEMATOCRIT 19.9 % (36.0-47.0)
[2020-08-01 15:22] LABS: CALCIUM 8.6 mg/dL (8.5-10.1); CREATININE 1.9 mg/dL (0.6-1.0); GFR 31.9; POTASSIUM 4.9 mmol/L (3.5-5.1)
[2020-08-01 15:35] LABS: ANISOCYTOSIS SLIGHT; HYPOCHROMIA MARKED; MICROCYTOSIS MARKED; PLT ESTIMATE ADEQUATE (ADEQUATE); POIKILOCYTOSIS SLIGHT; TEAR DROP CELLS PRESENT
[2020-08-01 15:36] LABS: OVALOCYTES OCC
--- NOTE | 2020-08-01 15:49 | EKG ---
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
--- NOTE | 2020-08-01 17:31 | ED.ADGEN ---
Past Medical History Past Medical History: Anxiety, Constipation, Depression, Diabetes-Type II, High Cholesterol, Hypertension, Other Additional Past Medical Histor: diabetic neuropathy,chronic rt hip pain, BRAIN SURGERY D/T TUMORS Past Surgical History: Hip Replacement, Other Additional Past Surgical Histo: R hip, CRANI WITH BRAIN MASS REMOVAL, PARTIAL HYSTERECTOMY, BENIGN CYSTS Smoking Status: Former Smoker Alcohol Use: None Drug Use: None Social History Narrative: cocaine/crack 15 years ago General Adult EDM: Chief Complaint: HEADACHE HPI: HPI: Patient is 65-year-old female who presents to the emergency room complaining of syncope. Patient states that she had a mass removed from her brain several years ago. Since that time she has had headaches most days. She states that today she has her normal headache. She states is not any worse than usual. She states that today she had a syncopal episode. She had several syncopal episodes over the weekend as well. She states that it is typical for her to have some lightheadedness but is not typical for her to pass out. She denies any chest pain or shortness of breath. She has some generalized weakness. She states the pain in her head feels like a dull aching. She has not tried to take anything for it at home. She follows with Dr. Cortez for neurology. Review of Systems: Review of Systems: Complete ROS is negative unless otherwise documented in HPI Current Medications: Current Medications Medications (Trade) Dose Ordered Sig/Jani Start Time Stop Time Status Last Admin Dose Admin Dexamethasone Sodium Phosphate (Decadron) 10 mg 1X ONCE 08/01/20 14:30 08/01/20 14:31 DC 08/01/20 15:32 10 MG Diphenhydramine HCl (Benadryl) 25 mg 1X ONCE 08/01/20 14:30 08/01/20 14:31 DC 08/01/20 15:33 25 MG Prochlorperazine Edisylate (Compazine) 10 mg 1X ONCE 08/01/20 14:30 08/01/20 14:31 DC 08/01/20 15:31 10 MG Sodium Chloride 1,000 ml @ 1,000 mls/hr 1X ONCE 08/01/20 14:30 08/01/20 15:29 DC 08/01/20 15:29 1,000 MLS/HR Allergies: Allergies: Allergies Coded Allergies Type Severity Reaction Last Updated Verified Iodinated Contrast Media Allergy Intermediate Hives 02/17/19 Yes losartan Allergy Intermediate breaks out 02/17/19 Yes lisinopril Adverse Reaction Intermediate COUGH 02/17/19 Yes Physical Exam: PE: General: Awake, alert, NAD. Well Nourished, well hydrated. Cooperative HEENT: Atraumatic, EOMI, PERRL, airway patent, moist oral mucosa Neck: Supple, trachea midline Respiratory: CTA bilaterally, normal effort, no wheezing/crackles CV: RRR, no murmur, cap refill <2 GI: Soft, nondistended, nontender, no masses MSK: No obvious deformities Skin: Warm, dry, intact Neuro: A&O x3, speech NL, 5/5 strength in BUE/BLE distally and proximally, CN 2- 12 intact, cerebellar testing normal Psych: Normal affect, normal mood, not suicidal or homicidal Current Patient Data: Labs: Laboratory Tests Test 08/01/20 15:00 White Blood Count 7.9 x10^3/uL (4.0-11.0) Red Blood Count 3.00 x10^6/uL (3.50-5.40) L Hemoglobin 6.1 g/dL (12.0-15.5) *L Hematocrit 19.9 % (36.0-47.0) *L Mean Corpuscular Volume 66 fL (79-100) L Mean Corpuscular Hemoglobin 21 pg (25-35) L Mean Corpuscular Hemoglobin Concent 31 g/dL (31-37) Red Cell Distribution Width 16.8 % (11.5-14.5) H Platelet Count 310 x10^3/uL (140-400) Neutrophils (%) (Auto) 76 % (31-73) H Lymphocytes (%) (Auto) 15 % (24-48) L Monocytes (%) (Auto) 8 % (0-9) Eosinophils (%) (Auto) 1 % (0-3) Basophils (%) (Auto) 0 % (0-3) Neutrophils # (Auto) 6.0 x10^3/uL (1.8-7.7) Lymphocytes # (Auto) 1.2 x10^3/uL (1.0-4.8) Monocytes # (Auto) 0.6 x10^3/uL (0.0-1.1) Eosinophils # (Auto) 0.1 x10^3/uL (0.0-0.7) Basophils # (Auto) 0.0 x10^3/uL (0.0-0.2) Platelet Estimate Adequate (ADEQUATE) Hypochromasia Marked Poikilocytosis Slight Anisocytosis Slight Microcytosis Marked Tear Drop Cells Present Ovalocytes Occ Sodium Level 141 mmol/L (136-145) Potassium Level 4.9 mmol/L (3.5-5.1) Chloride Level 106 mmol/L (98-107) Carbon Dioxide Level 23 mmol/L (21-32) Anion Gap 12 (6-14) Blood Urea Nitrogen 22 mg/dL (7-20) H Creatinine 1.9 mg/dL (0.6-1.0) H Estimated GFR (Cockcroft-Gault) 31.9 Glucose Level 188 mg/dL (70-99) H Calcium Level 8.6 mg/dL (8.5-10.1) Troponin I Quantitative < 0.017 ng/mL (0.000-0.055) Laboratory Tests 08/01/20 15:00 Laboratory Tests 08/01/20 15:00 Vital Signs: Vital Signs Date Time Temp Pulse Resp B/P (MAP) Pulse Ox O2 Delivery O2 Flow Rate FiO2 08/01/20 15:36 92 16 139/63 (88) 94 08/01/20 14:36 Room Air 08/01/20 14:05 98.0 98.0 EKG: EKG: [] Heart Score: C/O Chest Pain: N/A Risk Factors: Risk Factors: DM, Current or recent (<one month) smoker, HTN, HLP, family history of CAD, obesity. Risk Scores: Score 0 - 3: 2.5% MACE over next 6 weeks - Discharge Home Score 4 - 6: 20.3% MACE over next 6 weeks - Admit for Clinical Observation Score 7 - 10: 72.7% MACE over next 6 weeks - Early Invasive Strategies Radiology/Procedures: Radiology/Procedures: [] Course & Med Decision Making: Course & Med Decision Making Pertinent Labs and Imaging studies reviewed. (See chart for details) Patient 65-year-old female presents to the emergency room after having a syncopal episode. Patient has previously had a mass in her head which was re moved. CT head will be done to rule out any mass or bleeding. Patient was given a migraine cocktail for her headache. Lab work was also ordered to rule out other causes of syncope including a CBC, CMP, troponin, chest x-ray, EKG. Patient has a hemoglobin of 6.1 which is significantly lower than it was a year ago. And it is likely that this is the cause of the patient's syncope. Patient will be transfused 1 unit of blood. GI will be consulted. Patient will be admitted to Dr. Bey. Zechariah Disclaimer: Zechariah Disclaimer: This electronic medical record was generated, in whole or in part, using a voice recognition dictation system. Departure Departure Impression: Primary Impression: Severe anemia Additional Impression: Syncope Disposition: ADMITTED INPATIENT Condition: STABLE Referrals: HESHAM BEY MD (PCP) Problem Qualifiers LUISA CANCINO MD Aug 01, 2020 17:31
[2020-08-01 18:00] LABS: BILIRUBIN,URINE NEGATIVE (NEG); CLARITY,URINE CLEAR; COLOR,URINE YELLOW; NITRITE,URINE NEGATIVE (NEG); PROTEIN,URINE NEGATIVE (NEG-TRACE); UROBILINOGEN,URINE 0.2 mg/dL (0.2 mg/dL)
[2020-08-01 18:18] LABS: BACTERIA,URINE FEW /HPF (0-FEW); HYALINE CASTS, URINE OCCASIONAL /HPF
[2020-08-01] MEDS ORDERED: BUPR150T21 PO (19:02)
[2020-08-01] MEDS ORDERED: ESCI20TA8 PO (19:02)
[2020-08-01] MEDS: amLODIPine BESYLATE 10 MG TABLET PO SCH (20:55)
[2020-08-01] MEDS: carBAMazepine 200 MG TABLET PO SCH (20:55)
[2020-08-01] MEDS: GABAPENTIN 300 MG CAPSULE. PO SCH (20:55)
[2020-08-01] MEDS: PANTOPRAZOLE 40 MG TABLET.DR. PO SCH (20:55)
[2020-08-01] MEDS: levETIRAcetam 250 MG TABLET PO SCH (20:55)
[2020-08-01] MEDS: LATANOPROST 0.005% OPHTH SOLUTION 2.5ML BOTTLE. OU SCH (21:00)
[2020-08-01] MEDS ORDERED: levETIRAcetam 250 MG TABLET PO ONE (21:00)
--- NOTE | 2020-08-01 22:35 | NUR ---
Patient states that she does not know what her home meds are and that she does not know how much insulin or when she is supposed to take it. patient states "my memory is really bad". Patient does not have a list of medications with her. Will pass on to day shift to confirm meds. Will continue to monitor.
[2020-08-02] VITALS (7 sets, daily range): BP systolic 95–137; BP diastolic 40–68
[2020-08-02] MEDS: LUBIPROSTONE 24 MCG CAPSULE PO SCH ×2 (07:52→17:53)
[2020-08-02] MEDS: ATORVASTATIN CALCIUM 10 MG TABLET. PO SCH (07:52)
[2020-08-02] MEDS: buPROPion XL 150 MG TAB.ER.24H. PO SCH (07:53)
[2020-08-02] MEDS: CITALOPRAM 20 MG TABLET. PO SCH (07:56)
[2020-08-02] MEDS: levETIRAcetam 250 MG TABLET PO SCH ×2 (07:56→20:23)
[2020-08-02] MEDS: oxyCODONE IR 5 MG TABLET PO PRN ×2 (07:57→15:56)
[2020-08-02] MEDS: carBAMazepine 200 MG TABLET PO SCH ×2 (07:58→20:24)
[2020-08-02] MEDS: GABAPENTIN 300 MG CAPSULE. PO SCH ×2 (07:58→20:23)
[2020-08-02 07:59] LABS: BASO % 0 % (0-3); EOS % 0 % (0-3); HEMATOCRIT 23.8 % (36.0-47.0); HEMOGLOBIN 7.5 g/dL (12.0-15.5); LYMPH % 23 % (24-48); MEAN CORPUSCULAR HEMOGLOBIN 22 pg (25-35); MEAN CORPUSCULAR HGB CONC 31 g/dL (31-37); MEAN CORPUSCULAR VOLUME 69 fL (79-100); MONO # 0.8 x10^3/uL (0.0-1.1); MONO % 9 % (0-9); NEUT # 5.8 x10^3/uL (1.8-7.7); NEUT % 67 % (31-73); PLATELET COUNT 313 x10^3/uL (140-400); RED BLOOD COUNT 3.43 x10^6/uL (3.50-5.40); RED CELL DISTRIBUTION WIDTH 20.1 % (11.5-14.5); WHITE BLOOD COUNT 8.7 x10^3/uL (4.0-11.0)
[2020-08-02] MEDS: INSULIN LISPRO 300 UNITS/3 ML VIAL. SQ SCH ×2 (08:04→16:30)
--- NOTE | 2020-08-02 08:46 | PDOC ---
Provider Note Date of Service: DATE: 08/02/20 TIME: 08:35 Provider Note [id number] Justifications for Admission Other Justification HESHAM BEY MD Aug 02, 2020 08:46
--- NOTE | 2020-08-02 08:58 | HP ---
ADMIT DATE: CHIEF COMPLAINT: Weakness. HISTORY OF PRESENT ILLNESS: A 65-year-old black female who is followed for multiple medical problems including chronic orthopedic pain, poorly controlled type 2 diabetes, hypertension and seizure disorder. She has had increasing weakness over the last several weeks. She has not noticed hematochezia, melena, nausea, vomiting, weight loss, dysphagia or any other GI alarm symptoms. She has never had a colonoscopy that she is aware of. She was found to be moderately anemic. Hemoglobin 6.1 with a low MCV. One unit of packed cells has been given and she is feeling a little better this morning. PAST MEDICAL HISTORY: Multiple meds listed per the chart. ALLERGIES: LISINOPRIL AND LOSARTAN. MEDICATIONS: She takes aspirin low dose every day for "the last 2 years" for reasons that are unclear, but no history of coronary artery disease, TIA or stroke. SOCIAL HISTORY: Nonsmoker, nondrinker, single, not employed, not physically active because of orthopedic pain. FAMILY HISTORY: Her brother of colon cancer last year. There is "colon cancer in my father's side." REVIEW OF SYSTEMS: No other specific complaints at this time. Denies weight loss or any change in bowel habits. OBJECTIVE: ENT: Moderate pallor, otherwise unremarkable. NECK: No JVD, nodes or masses. LUNGS: Clear, without tachypnea. CARDIOVASCULAR: Regular rate. Grade 2 systolic murmur across the precordium. ABDOMEN: Benign, unremarkable. EXTREMITIES: Good pedal and radial pulses. Nail beds are pale. No joint or skin lesions are seen. RECTAL: Deferred. ASSESSMENT: Microcytic anemia, slowly progressive. Etiologies could be multiple and certainly low-dose daily aspirin accelerating this. There is a family history of colon cancer and to her knowledge she has never had a colonoscopy. PLAN: Adding iron and check ferritin. GI consultation pending to arrange outpatient upper and lower endoscopy. Obviously hold the aspirin at this point. HESHAM BEY MD DR: ESTEPHANIA/mia JOB#: [id number] / [id number]
--- NOTE | 2020-08-02 08:59 | PDOC2 ---
GI CONSULT Date of Service: DATE: 08/02/20 TIME: 08:48 Reason For Consult: possible GI bleed HPI: HPI: 65 y/o female admitted through ER. Tells me lightheaded and weak w/ pain at the top of her head for a month. She says she sleeps all the time, has no energy, and can't remember anything. Also concerns about hair loss. Noted w/ microcytic anemia (Hgb 6.1, MCV 66) - improved w/ transfusion (Hgb now 7.5). BUN 22, Cr 1.9. H/o GERD on medication (she can't remember name). Sometimes she "doesn't want to swallow" but denies dysphagia. No n/v. Poor appetite for awhile - "I don't wanna eat." Denies abd pain. Maybe has lost a few pounds but not sure. Denies constipation, hematochezia, and melena. Has watery stools after meals. EGD and colonoscopy for anemia by Dr. Santiago in 07/2015 showed non-erosive gastritis, sigmoid diverticulosis, and internal hemorrhoids. Thought anemia possibly related to SB AVMs. Iron deficient w/ normal B12 in 2016. Thinks she might have had a gallbladder problem once. No liver, pancreas, or PUD history. Summary list includes Linzess (on Amitiza here) and omeprazole. She's not sure if she takes Linzess. Does report taking ASA 81mg QD. Does not take iron. PMH: PMH: HTN, HLD, CA, peripheral neuropathy, DM, glaucoma, OA, nephrolithiasis, CKD craniotomy w/ menigioma resection, , tonsillectomy, left knee surgery, unilateral oophorectomy, sebaceous abscess excision FH: Family History: CAD Social History: Smoke: Quit ALCOHOL: none Drugs: None ROS: GEN: Denies fevers, chills, sweats HEENT: +nosebleed x 1 CV: Denies chest pain RESP: Denies shortness of air, cough GI: Per HPI : Denies hematuria, dysuria ENDO: ?weight loss +hair loss NEURO: +dizziness +poor memory MSK: +weakness SKIN: Denies jaundice, pruritus Vitals: Vitals: Vital Signs Date Time Temp Pulse Resp B/P (MAP) Pulse Ox O2 Delivery O2 Flow Rate FiO2 08/02/20 08:00 Room Air 08/02/20 07:57 16 08/02/20 07:00 97.7 84 135/55 (81) 96 97.7 Labs: Labs: Laboratory Tests Test 08/01/20 15:00 08/01/20 17:50 08/01/20 20:53 08/02/20 07:15 White Blood Count 7.9 x10^3/uL (4.0-11.0) 8.7 x10^3/uL (4.0-11.0) Red Blood Count 3.00 x10^6/uL (3.50-5.40) 3.43 x10^6/uL (3.50-5.40) Hemoglobin 6.1 g/dL (12.0-15.5) 7.5 g/dL (12.0-15.5) Hematocrit 19.9 % (36.0-47.0) 23.8 % (36.0-47.0) Mean Corpuscular Volume 66 fL (79-100) 69 fL (79-100) Mean Corpuscular Hemoglobin 21 pg (25-35) 22 pg (25-35) Mean Corpuscular Hemoglobin Concent 31 g/dL (31-37) 31 g/dL (31-37) Red Cell Distribution Width 16.8 % (11.5-14.5) 20.1 % (11.5-14.5) Platelet Count 310 x10^3/uL (140-400) 313 x10^3/uL (140-400) Neutrophils (%) (Auto) 76 % (31-73) 67 % (31-73) Lymphocytes (%) (Auto) 15 % (24-48) 23 % (24-48) Monocytes (%) (Auto) 8 % (0-9) 9 % (0-9) Eosinophils (%) (Auto) 1 % (0-3) 0 % (0-3) Basophils (%) (Auto) 0 % (0-3) 0 % (0-3) Neutrophils # (Auto) 6.0 x10^3/uL (1.8-7.7) 5.8 x10^3/uL (1.8-7.7) Lymphocytes # (Auto) 1.2 x10^3/uL (1.0-4.8) 2.0 x10^3/uL (1.0-4.8) Monocytes # (Auto) 0.6 x10^3/uL (0.0-1.1) 0.8 x10^3/uL (0.0-1.1) Eosinophils # (Auto) 0.1 x10^3/uL (0.0-0.7) 0.0 x10^3/uL (0.0-0.7) Basophils # (Auto) 0.0 x10^3/uL (0.0-0.2) 0.0 x10^3/uL (0.0-0.2) Platelet Estimate Adequate (ADEQUATE) Hypochromasia Marked Poikilocytosis Slight Anisocytosis Slight Microcytosis Marked Tear Drop Cells Present Ovalocytes Occ Sodium Level 141 mmol/L (136-145) Potassium Level 4.9 mmol/L (3.5-5.1) Chloride Level 106 mmol/L (98-107) Carbon Dioxide Level 23 mmol/L (21-32) Anion Gap 12 (6-14) Blood Urea Nitrogen 22 mg/dL (7-20) Creatinine 1.9 mg/dL (0.6-1.0) Estimated GFR (Cockcroft-Gault) 31.9 Glucose Level 188 mg/dL (70-99) Calcium Level 8.6 mg/dL (8.5-10.1) Troponin I Quantitative < 0.017 ng/mL (0.000-0.055) Urine Collection Type Unknown Urine Color Yellow Urine Clarity Clear Urine pH 6.0 (<5.0-8.0) Urine Specific [place]rock 1.010 (1.000-1.030) Urine Protein Negative mg/dL (NEG-TRACE) Urine Glucose (UA) Negative mg/dL (NEG) Urine Ketones (Stick) Negative mg/dL (NEG) Urine Blood Trace (NEG) Urine Nitrite Negative (NEG) Urine Bilirubin Negative (NEG) Urine Urobilinogen Dipstick 0.2 mg/dL (0.2 mg/dL) Urine Leukocyte Esterase Negative (NEG) Urine RBC 1-2 /HPF (0-2) Urine WBC 1-4 /HPF (0-4) Urine Squamous Epithelial Cells Few /LPF Urine Bacteria Few /HPF (0-FEW) Urine Hyaline Casts Occasional /HPF Glucose (Fingerstick) 278 mg/dL (70-99) Test 08/02/20 08:08 Glucose (Fingerstick) 82 mg/dL (70-99) Allergies: Coded Allergies: Iodinated Contrast Media (Verified Allergy, Intermediate, Hives, 02/17/19) Per pt, hives on arm and face after heart cath diphtheria,pertussis (acellular),te (Verified Allergy, Intermediate, 08/02/20) losartan (Verified Allergy, Intermediate, breaks out, 02/17/19) lisinopril (Verified Adverse Reaction, Intermediate, COUGH, 02/17/19) Medications: Current Medications Medications (Trade) Dose Ordered Sig/Jani Route PRN Reason Start Time Stop Time Status Last Admin Dose Admin Dexamethasone Sodium Phosphate (Decadron) 10 mg 1X ONCE IVP 08/01/20 14:30 08/01/20 14:31 DC 08/01/20 15:32 Prochlorperazine Edisylate (Compazine) 10 mg 1X ONCE IV 08/01/20 14:30 08/01/20 14:31 DC 08/01/20 15:31 Diphenhydramine HCl (Benadryl) 25 mg 1X ONCE PO 08/01/20 14:30 08/01/20 14:31 DC 08/01/20 15:33 Sodium Chloride 1,000 ml @ 1,000 mls/hr 1X ONCE IV 08/01/20 14:30 08/01/20 15:29 DC 08/01/20 15:29 Amlodipine Besylate (Norvasc) 10 mg HS PO 08/01/20 21:00 08/01/20 20:55 Atorvastatin Calcium (Lipitor) 10 mg DAILY PO 08/02/20 09:00 08/02/20 07:52 Bupropion HCl (Wellbutrin Xl) 150 mg QAM PO 08/02/20 09:00 08/02/20 07:53 Insulin Human Lispro (HumaLOG) 20 units BIDAC SQ 08/02/20 07:30 08/02/20 08:04 Triamterene/HCTZ (Maxzide 37.5/ 25mg) 1 tab DAILY PO 08/02/20 09:00 08/02/20 07:54 Carbamazepine (TEGretol) 300 mg BID PO 08/01/20 21:00 08/02/20 07:58 Citalopram Hydrobromide (CeleXA) 40 mg DAILY PO 08/02/20 09:00 08/02/20 07:56 Gabapentin (Neurontin) 900 mg BID PO 08/01/20 21:00 08/02/20 07:58 Levetiracetam (Keppra) 750 mg BID PO 08/01/20 21:00 08/02/20 07:56 Lubiprostone (Amitiza) 24 mcg BIDWMEALS PO 08/02/20 08:00 08/02/20 07:52 Pantoprazole Sodium (Protonix) 40 mg HS PO 08/01/20 21:00 08/01/20 20:55 Oxycodone HCl (Roxicodone) 20 mg PRN Q8HRS PRN PO PAIN 08/01/20 20:45 08/02/20 07:57 Imaging: Imaging: CXR IMPRESSION: No acute cardiopulmonary abnormality. Head CT IMPRESSION: 1. No acute intracranial finding. 2. Right sided craniotomy changes. 3. Stable partially calcified mass along the inner table of the left parietal bone. Appearance favors a meningioma on the prior MRI. 4. Bilateral cerebral white matter changes, likely due to chronic small vessel disease. 5. Right mastoid fluid. PE: GEN: NAD HEENT: Atraumatic, PERRL LUNGS: CTAB HEART: RRR ABD: NABS, S/ND/NT EXTREMITY: No edema SKIN: No rashes, no jaundice NEURO/PSYCH: A & O 3, poor historian A/P: A/P: Weakness, lightheadedness Microcytic anemia (h/o NNA in 2016), JOSHUA/CKD GERD CRC screen - UTD Diverticulosis, hemorrhoids ?h/o constipation on Linzess? - currently reports watery stools CAD on ASA -- Check anemia parameters (though has already transfused). Probably needs to start iron. Agree w/ PPI. Monitor stooling - ?having diarrhea? - on Linzess/Amitiza. Other per Dr. Santiago. AYAAN HUBER Aug 02, 2020 08:59
[2020-08-02] MEDS ORDERED: levETIRAcetam 250 MG TABLET PO ONE ×2 (09:00)
[2020-08-02] MEDS ORDERED: TRIAMTERENE/HCTZ 37.5/25MG TABLET. PO SCH (09:00)
[2020-08-02] MEDS ORDERED: IRON SUCROSE COMPLEX 200 MG in IV NORMAL SALINE 100ML 100 ML IV ONE (10:00)
[2020-08-02] MEDS: INSULIN GLARGINE SYRINGE. SQ SCH (10:33)
--- NOTE | 2020-08-02 10:35 | NUR ---
UPON ENTERING PT'S ROOM, PT SLEEPING AND PT REPORTED SHAKING WHILE TRYING TO EAT BREAKFAST. THIS RN CHECKED PT'S GLUCOSE WHICH WAS 49. PT WAS GIVEN ORANGE JUICE 480ML IMMEDIATELY. WILL CALL PROVIDER FOR FURTHER ORDERS. Addendum: 08/02/20 at 1047 by THEA HARTMAN RN RN PT IS A&OX4. IN NO ACUTE DISTRESS. AT 1045, PT WAS ALSO GIVEN APPLE JUICE 240ML. PT'S GLUCOSE RECHECKED AT 53. NIKO CHARGE NURSE NOTIFIED. THIS RN HAS STAYED AT PT'S BEDSIDE MONITORING PT.
[2020-08-02] MEDS ORDERED: DEXTROSE 50% 25 GM / 50ML DISP.SYRIN. IV PRN (10:45)
--- NOTE | 2020-08-02 11:02 | NUR ---
THIS RN CONTINUING TO MONITOR PT AT BEDSIDE. PT WAS GIVEN DEXTROSE 50% 25ML IVP AT 1055. PT'S GLUCOSE RECHECKED AT 1102. FSBS NOW 129. PT REMAINS A&0X4, SLEEPY, IN NO ACUTE DISTRESS.
--- NOTE | 2020-08-02 13:16 | NUR ---
PER REFUGE WORKER, ORDER FOR REHAB SCREEN FROM DR BEY NEEDS CHANGED TO PT/OT EVAL AND TX.
--- NOTE | 2020-08-02 13:18 | NUR ---
SS following for discharge planning. SS reviewed pt chart and discussed with pt RN. Pt is from home alone and is currently on room air. GI consulted. Pt hemoglobin was 6.1 and pt received one unit of blood. PT/OT ordered. Pt reported to SS that she has a caregiver that comes to her home 23 hours per day. She reported that they do not assist her with her medications. SS discussed home healthcare with pt. Pt declining home healthcare at this time. SS will continue to follow for discharge planning.
[2020-08-02] MEDS: PANTOPRAZOLE 40 MG TABLET.DR. PO SCH (20:23)
[2020-08-02] MEDS: FERROUS SULFATE 325 MG TABLET. PO SCH (20:23)
[2020-08-02] MEDS: LATANOPROST 0.005% OPHTH SOLUTION 2.5ML BOTTLE. OU SCH (20:24)
[2020-08-02] MEDS: amLODIPine BESYLATE 10 MG TABLET PO SCH ×2 (20:24→23:41)
[2020-08-02 23:08] LABS: HEMOGLOBIN A1C 6.9 % (4.8-5.6)
[2020-08-03 03:39] VITALS: BP 123/62
[2020-08-03 05:36] LABS: HEMATOCRIT 23.3 % (36.0-47.0); HEMOGLOBIN 7.4 g/dL (12.0-15.5); RED BLOOD COUNT 3.36 x10^6/uL (3.50-5.40); RED CELL DISTRIBUTION WIDTH 20.1 % (11.5-14.5); WHITE BLOOD COUNT 8.3 x10^3/uL (4.0-11.0)
[2020-08-03 07:00] VITALS: BP 128/68
[2020-08-03] MEDS: INSULIN LISPRO 300 UNITS/3 ML VIAL. SQ SCH (07:30)
--- NOTE | 2020-08-03 08:25 | PDOC ---
Provider Note Date of Service: DATE: 08/03/20 TIME: 08:24 Provider Note bp lowish, rest ok- hb up 7.5, ferritin low, B12 ok- orior egd/colon 2015, needs another colonoscopy re brother colon CA- she states she is having egd today, will stay on iron and off asa, weekly hb as OP Justifications for Admission Other Justification HESHAM BEY MD Aug 03, 2020 08:25
[2020-08-03] MEDS ORDERED: levETIRAcetam 250 MG TABLET PO ONE (09:00)
[2020-08-03] MEDS ORDERED: INSULIN GLARGINE SYRINGE. SQ ONE (09:00)
[2020-08-03] MEDS: carBAMazepine 200 MG TABLET PO SCH (09:12)
[2020-08-03] MEDS: GABAPENTIN 300 MG CAPSULE. PO SCH (09:12)
[2020-08-03] MEDS: FERROUS SULFATE 325 MG TABLET. PO SCH (09:12)
[2020-08-03] MEDS: LUBIPROSTONE 24 MCG CAPSULE PO SCH (09:12)
[2020-08-03] MEDS: buPROPion XL 150 MG TAB.ER.24H. PO SCH (09:12)
[2020-08-03] MEDS: CITALOPRAM 20 MG TABLET. PO SCH (09:13)
[2020-08-03] MEDS: ATORVASTATIN CALCIUM 10 MG TABLET. PO SCH (09:13)
[2020-08-03] MEDS: levETIRAcetam 250 MG TABLET PO SCH (09:13)
[2020-08-03] MEDS: INSULIN GLARGINE SYRINGE. SQ SCH (09:20)
--- NOTE | 2020-08-03 10:19 | PDOC ---
Date of Service: DATE: 08/03/20 TIME: 10:15 Subjective: Subjective: No bleeding, tolerating diet, had a soft stool. Says Dr. Epperson said she could go home. Objective: Objective: SW asking about EGD as inpt vs discharge. Reviewed primary note - pt said she was having an EGD today. Vital Signs: Vital Signs Date Time Temp Pulse Resp B/P (MAP) Pulse Ox O2 Delivery O2 Flow Rate FiO2 08/03/20 07:00 98.0 80 20 128/68 (88) 94 Room Air 98.0 Labs: Laboratory Tests Test 08/02/20 10:30 08/02/20 10:45 08/02/20 11:01 08/02/20 11:38 Glucose (Fingerstick) 49 mg/dL 53 mg/dL 129 mg/dL 132 mg/dL Test 08/02/20 20:53 08/03/20 04:35 08/03/20 08:40 Glucose (Fingerstick) 189 mg/dL 117 mg/dL White Blood Count 8.3 x10^3/uL Red Blood Count 3.36 x10^6/uL Hemoglobin 7.4 g/dL Hematocrit 23.3 % Mean Corpuscular Volume 69 fL Mean Corpuscular Hemoglobin 22 pg Mean Corpuscular Hemoglobin Concent 32 g/dL Red Cell Distribution Width 20.1 % Platelet Count 296 x10^3/uL PE: GEN: NAD - walking halls w/ therapy using walker LUNGS: room air HEART: RRR ABD: S/ND/NT NEURO/PSYCH: A & O 3, forgetful A/P: NAN - stable GERD, h/o constipation FH colon cancer -- Received IV iron and pRBCs. Continue PPI. Continue iron in some form as outpt. Plan for outpt EGD and colonoscopy - our office will call to schedule - d/w pt in detail. Dc per primary. Justicifation of Admission Dx: Justifications for Admission: Justification of Admission Dx: Yes AYAAN HUBER Aug 03, 2020 10:19
[2020-08-03 11:00] VITALS: BP 135/56
[2020-08-03] MEDS: oxyCODONE IR 5 MG TABLET PO PRN (13:05)
[2020-08-03] MEDS ORDERED: FERR325T14 PO (13:44)
--- NOTE | 2020-08-03 14:15 | NUR ---
SS following up with discharge planning. SS reviewed pt chart and discussed with pt RN. Pt is currently on room air. Discharge order on the chart for home with self care.
--- NOTE | 2020-08-03 15:50 | NUR ---
Discharge Note: JULITA BEY [address] [place] [address] Discharge instructions and discharge home medications reviewed with Patient and a copy given. All questions have been answered and understanding verbalized. The following instructions and handouts were given: discharge instructions, anemia education, dizziness education, follow ups Discontinued lines and drains: Peripheral IV intact. Patient discharged to Home or Self Care with Friend via Wheelchair at 1550.
--- NOTE | 2020-08-04 00:30 | DS ---
DATE OF DISCHARGE: 08/03/2020 HOSPITAL SUMMARY: A 65-year-old black female who came in with weakness and dizziness, found to have a hemoglobin of 6.1. MCV was low at 69. Ferritin low at 8. Iron low, TIBC high, all consistent with iron deficiency. B12 was normal. Rest of chemistry function was normal. Hemoglobin A1c was surprisingly good at 6.9. Aspirin was held and IV iron was given as well as 1 unit of packed red blood cells and hemoglobin came up to 7.5. GI had seen her and plans panendoscopy at a later time as an outpatient as she is stable for discharge at this point. Record states she had upper and lower endoscopy in 2016 and no specific lesions were found as a source of anemia at that time. FINAL DIAGNOSES: 1. Severe microcytic anemia secondary to undiagnosed gastrointestinal bleeding. 2. Type 2 diabetes mellitus, controlled on insulin. OPERATIONS, PROCEDURES, COMPLICATIONS: None. CONSULTATIONS: Dr. Santiago. DISPOSITION: She will stop the aspirin she takes daily and start iron tablets twice a day and office followup with hemoglobin in 1 week. She will need colonoscopy and EGD as an outpatient as she has a family history of colon cancer and last colonoscopy was in 2016. Office followup in [address] Epperson and with Dr. Santiago for endoscopy when she is available for this. All rest of medications remain the same. HESHAM EPPERSON MD DR: ESTEPHANIA/mia JOB#: [id number] / [id number]
== END 2020-08-03 15:50 | disposition home or self-care (01) ==
LOC: ER 14:05 → 2 NORTH 15:48 → INTOOBSV 15:48
PROVIDERS: ADMIT Family Medicine; ATTEND Family Medicine
DX: D50.9 Iron deficiency anemia, unspecified (principal); I10 Essential (primary) hypertension; F41.9 Anxiety disorder, unspecified; I25.10 Atherosclerotic heart disease of native coronary artery without angina pectoris; K59.00 Constipation, unspecified; E11.42 Type 2 diabetes mellitus with diabetic polyneuropathy; R55 Syncope and collapse; F32.9 Major depressive disorder, single episode, unspecified; E78.00 Pure hypercholesterolemia, unspecified; K21.9 Gastro-esophageal reflux disease without esophagitis; H40.9 Unspecified glaucoma; E78.5 Hyperlipidemia, unspecified; E11.65 Type 2 diabetes mellitus with hyperglycemia; Z79.82 Long term (current) use of aspirin; Z90.711 Acquired absence of uterus with remaining cervical stump; Z90.721 Acquired absence of ovaries, unilateral; Z96.649 Presence of unspecified artificial hip joint; Z87.891 Personal history of nicotine dependence; Z79.4 Long term (current) use of insulin; Z79.899 Other long term (current) drug therapy
CPT/HCPCS: 36415; 36430; 70450; 71045; 80048; 81001; 82607; 82728; 82962; 83036; 83540; 83550; 84484; 85025; 85027; 86850; 86900; 86901; 86920; 93005; 96361; 96365; 96366; 96372; 96375; 97161; 97166; 97535; 99285; G0378; J0780; J1100; J1756; J1815; J7030; P9016; Q0163; 96374; G0379

== ENCOUNTER → 2020-09-08 | Day surgery (SDC) | payer OTHER, MEDICAID ==
[~2020-09-08] VITALS: Ht 149.9 cm; Wt 180.0 kg
[~2020-09-08] MED LIST changes: +DULA0.75 SQ; +ESCI20TA8 PO; +IV RINGERS,LACTATED 1000ML 1,000 ML IV SCH; +LIDOCAINE 2% PF 5 ML VIAL. ONE; +PROPOFOL 10 MG/ML (20ML) VIAL. IV ONE
[2020-09-08 08:01] VITALS: BP 157/75
[2020-09-08 09:45] VITALS: BP 163/76
--- NOTE | 2020-09-08 09:46 | HP ---
ADMIT DATE: 09/08/2020 REASON: Iron-deficiency anemia. HISTORY OF PRESENT ILLNESS: A 65-year-old -Citizen Of [place] female with past medical history significant for hypertension, hyperlipidemia, osteoarthritis, nephrolithiasis, chronic renal insufficiency, status post meningioma resection, , tonsillectomy, knee surgery, seen with hemoglobin of 6.1 on admission in the hospital last month, she was transfused up and is now here for endoscopy. Previous endoscopy in 2016 revealed nonerosive gastritis, sigmoid diverticulosis, internal hemorrhoids with bleeding thought to be secondary to small bowel AVMs. Interval endoscopy is recommended due to the recurrent anemia. PAST MEDICAL HISTORY: Hypertension, hyperlipidemia, anemia, diabetes. ALLERGIES: IODINE. MEDICATIONS: See the MAR. SOCIAL HISTORY: Ex-smoker, nondrinker. FAMILY HISTORY: Noncontributory. REVIEW OF SYSTEMS: Per records. PHYSICAL EXAMINATION: GENERAL: Reveals a well-nourished, well-developed -Citizen Of [place] female. VITAL SIGNS: Temp is 97.1, pulse 90, respirations 20. LUNGS: Clear. CARDIOVASCULAR: Reveals an S1, S2, without S3, S4 or appreciable murmur. ABDOMEN: Soft abdomen, normal bowel sounds, multiple surgical incisions. EXTREMITIES: No cyanosis, clubbing or edema. IMPRESSION: Iron-deficiency anemia with a history of diverticulosis and arteriovenous malformations. We will proceed with EGD and colonoscopy to rule out interval cancer, polyp, Batista's, etc. Risks and benefits have been discussed. The patient is willing to proceed at this time. MO/TAIWO/KATELYNN DR: Bonnie TID: [id number]
--- NOTE | 2020-09-12 09:08 | PATHOLOGY ---
[facility] Accession Number: [id number] . 01 Material submitted: . PART A: rectum - RECTAL POLYP BIOPSY PART B: colon - TRANSVERSE COLON POLYP. Modifiers: transverse PART C: cecum - CECAL POLYP BIOPSY PART D: cecum - CECAL MASS BIOPSY . 01 Clinical history: . GERD,FAM HX COLON CA ANEMIA EGD/COLON POLYPS,CECAL MASS . 02 Diagnosis: A. Colon biopsies, rectal polyp: - Hyperplastic polyp. . B. Colon biopies, transverse colon polyp: - Tubular adenoma. . C. Colon biopsies, cecal polyps: - Tubular adenoma (1). - Hyperplastic polyp/prominent mucosal fold. . D. Colon biopsies, cecal mass: - Tubulovillous adenoma, predominantly tubular. (JPM:manjula; 09/11/2020) [facility] [place]12[place] 0809 Local . 02 Comment: Sections of the rectal polyp biopsy reveal a hyperplastic polyp. There are no adenomatous changes or evidence of malignancy. . Sections of the transverse colon polyp biopsy reveal a tubular adenoma showing no high grade dysplasia or evidence of malignancy. . Sections of the cecal polyps biopsies reveal a single segment of tubular adenoma, and several segments of colonic mucosa consistent with hyperplastic polyp/prominent mucosal fold. There is no high grade dysplasia or evidence of malignancy. . Sections of the cecal mass biopsy reveal several segments of tubulovillous adenoma which are predominantly tubular. There is no high grade dysplasia or evidence of malignancy. (JPM:manjula; 09/11/2020) . 02 Electronically signed: . Kel Nelson MD, Pathologist NPI- [id number] . 01 Gross description: . A. Received in formalin labeled "Ginny Bey, rectal polyp BX" are 2 patel-brown soft tissue fragments measuring in aggregate 0.4 x 0.2 x 0.1 cm. The specimen is submitted entirely in A1. . B. Received in formalin labeled "Ginny Bey, transverse colon polyp" are multiple patel-brown soft tissue fragments measuring in aggregate 0.6 x 0.4 x 0.1 cm. The specimen is submitted entirely in B1. . C. Received in formalin labeled "Ginny Bey, cecal polyp BX" are multiple patel-brown soft tissue fragments measuring in aggregate 0.8 x 0.5 x 0.1 cm. The specimen is submitted entirely in C1. . D. Received in formalin labeled "Zhou, Ginny, cecal mass BX" are multiple patel-brown soft tissue fragments measuring in aggregate 0.7 x 0.7 x 0.2 cm. The specimen is submitted entirely in D1. ([facility] [place] 09/09/2020) [facility] 09/09/2020 1225 Local . 02 Pathologist provided ICD-10: K62.1, D12.3, D12.0, K63.5 . 02 CPT . 369249, 615798, [id number], 337309 Specimen Comment: A courtesy copy of this report has been sent to [phone] Specimen Comment: Report sent to / DR BEY Performed at: 01 [facility] [address], [place], [place] [id number] MD Rusty Quinn MD Phone: [phone] Performed at: 02 [facility] [address], [place] [id number] MD Kel Nelson MD Phone: [phone]
== END | disposition home or self-care (01) ==
LOC: ENDOS 07:19
PROVIDERS: ATTEND Internal Medicine Gastroenterology
DX: D50.9 Iron deficiency anemia, unspecified (principal); D12.3 Benign neoplasm of transverse colon; D12.0 Benign neoplasm of cecum; K44.9 Diaphragmatic hernia without obstruction or gangrene; R58 Hemorrhage, not elsewhere classified; K29.50 Unspecified chronic gastritis without bleeding; K64.0 First degree hemorrhoids; K57.30 Diverticulosis of large intestine without perforation or abscess without bleeding; K63.89 Other specified diseases of intestine; K31.89 Other diseases of stomach and duodenum; K21.9 Gastro-esophageal reflux disease without esophagitis; I10 Essential (primary) hypertension; E78.00 Pure hypercholesterolemia, unspecified; E11.9 Type 2 diabetes mellitus without complications; E66.9 Obesity, unspecified; M19.90 Unspecified osteoarthritis, unspecified site; F41.9 Anxiety disorder, unspecified; F32.9 Major depressive disorder, single episode, unspecified; Z87.891 Personal history of nicotine dependence; Z90.710 Acquired absence of both cervix and uterus; Z98.890 Other specified postprocedural states; Z79.899 Other long term (current) drug therapy; Z79.84 Long term (current) use of oral hypoglycemic drugs; Z91.041 Radiographic dye allergy status; Z88.8 Allergy status to other drugs, medicaments and biological substances; Z82.49 Family history of ischemic heart disease and other diseases of the circulatory system
CPT/HCPCS: 43235; 45380; 82962; 88305; J2704

== ENCOUNTER 2020-09-18 17:38 | Observation (INO) | payer OTHER, MEDICAID ==
[~2020-09-18] VITALS: Ht 147.3 cm; Wt 83.4 kg
[~2020-09-18 17:38] MED LIST changes: -IV RINGERS,LACTATED 1000ML 1,000 ML IV SCH; -LIDOCAINE 2% PF 5 ML VIAL. ONE; -OMEP40CA45 PO; +OMEP40CA7 PO; -PROPOFOL 10 MG/ML (20ML) VIAL. IV ONE
[2020-09-18] MEDS ORDERED: ONDANSETRON PF 4 MG/2 ML VIAL. IV ONE (20:00)
[2020-09-18] MEDS ORDERED: fentaNYL PF VIAL 100 MCG/2 ML VIAL IV ONE (20:00)
--- NOTE | 2020-09-18 20:10 | RAD ---
Exam performed: X-ray hip with pelvis and right knee 3 views. HISTORY: Right hip pain. DATE OF SERVICE: 09/18/2020. COMPARISON: None available FINDINGS: Single view pelvis and AP and frog-leg lateral view of the right hip is obtained. Postoperative cole es of total right hip arthroplasty with prosthesis in satisfactory position. There is no acute fractu re or dislocation. No soft tissue swelling or foreign body seen. AP, lateral and oblique views of the right knee are obtained. There is mild narrowing of the patellof emoral joint. The medial and lateral tibiofemoral joints are preserved. There is no acute fracture or dislocation. No soft tissue swelling or foreign body seen. IMPRESSION: Status post total right hip arthroplasty. No acute abnormality seen. Degenerative arthrosis involving the right knee. No acute abnormality seen. Electronically signed by: Velvet Bell MD (09/18/2020 8:07 PM) [facility]
--- NOTE | 2020-09-18 20:30 | ED.ADGEN ---
Past Medical History Past Medical History: Anxiety, Constipation, Depression, Diabetes-Type II, High Cholesterol, Hypertension, Other Additional Past Medical Histor: diabetic neuropathy,chronic rt hip pain, BRAIN SURGERY D/T TUMORS Past Surgical History: Hip Replacement, Other Additional Past Surgical Histo: R hip, CRANI WITH BRAIN MASS REMOVAL, PARTIAL HYSTERECTOMY, BENIGN CYSTS Smoking Status: Former Smoker Alcohol Use: None Drug Use: None General Adult EDM: Chief Complaint: MECHANICAL FALL HPI: HPI: Patient is a 65 year old AA female who presents emergency department with complaints of bilateral knee, and right hip pain after a fall that occurred at approximately 5:30 PM. Patient states that she was walking at a park when she tripped on a piece of metal and fell. Patient states she hit her face on the ground when she fell. She denies any loss of consciousness, vision changes, headache, nausea, vomiting, neck pain, dizziness, or use of blood thinners. Patient states she has a history of a previous right hip replacement. She denies any syncope, chest pain, palpitations, abdominal pain, body aches, back pain, numbness, tingling, or weakness after the fall. Patient reports a history of prior brain surgeries 2 years ago. She currently rates pain in her right hip a 10 out of 10 on the pain scale, she denies any alleviating factors, pain is worse with movement and palpation. Review of Systems: Review of Systems: Complete ROS is negative unless otherwise noted in HPI. Current Medications: Current Medications Medications (Trade) Dose Ordered Sig/Jani Start Time Stop Time Status Last Admin Dose Admin Carbamazepine (TEGretol XR) 300 mg BID 09/18/20 22:16 09/18/20 22:57 300 MG Fentanyl Citrate (Fentanyl 2ml Vial) 50 mcg 1X ONCE 09/18/20 20:00 09/18/20 20:01 DC 09/18/20 19:55 50 MCG Levetiracetam (Keppra) 500 mg BID 09/18/20 22:16 09/18/20 22:57 500 MG Morphine Sulfate (Morphine Sulfate) 4 mg 1X ONCE 09/18/20 22:00 09/18/20 22:01 DC 09/18/20 22:06 4 MG Ondansetron HCl (Zofran) 4 mg 1X ONCE 09/18/20 20:00 09/18/20 20:01 DC 09/18/20 19:56 4 MG Allergies: Allergies: Allergies Coded Allergies Type Severity Reaction Last Updated Verified Iodinated Contrast Media Allergy Intermediate Hives 09/08/20 Yes diphtheria,pertussis (acellular),te Allergy Intermediate 09/08/20 Yes losartan Allergy Intermediate breaks out 09/08/20 Yes lisinopril Adverse Reaction Intermediate COUGH 09/08/20 Yes Physical Exam: PE: See Above Constitutional: Well developed, well nourished, no acute distress, non-toxic appearance. [] HENT: Normocephalic, atraumatic, bilateral external ears normal, nose normal. [] Eyes: PERRLA, EOMI, conjunctiva normal, no discharge. [] Neck: Normal range of motion, nontender, supple, no step-off, no stridor. [] Cardiovascular:Heart rate regular rhythm Lungs & Thorax: Respirations even and unlabored, no retractions, no respiratory distress Abdomen: soft, no tenderness, no rebound tenderness, no guarding, Back, no bony tenderness, no deformity, step-off, Skin: Warm, dry, no erythema, no rash. [] Extremities: Right hip: Lateral tenderness to palpation, no obvious shortening or rotation, no cyanosis, ROM limited due to pain Bilateral knees: Anterior tenderness to palpation without obvious deformity, crepitus, edema, or cyanosis, ROM limited due to pain, sensation intact bilaterally Neurologic: Alert and oriented X 3, normal sensation, no focal deficits noted. [] Psychologic: Affect normal, judgement normal, mood normal. [] Current Patient Data: Vital Signs: Vital Signs Date Time Temp Pulse Resp B/P (MAP) Pulse Ox O2 Delivery O2 Flow Rate FiO2 09/18/20 22:06 99 09/18/20 18:40 97.8 85 28 149/69 (95) Room Air 97.8 EKG: EKG: [] Heart Score: C/O Chest Pain: No Risk Scores: Score 0 - 3: 2.5% MACE over next 6 weeks - Discharge Home Score 4 - 6: 20.3% MACE over next 6 weeks - Admit for Clinical Observation Score 7 - 10: 72.7% MACE over next 6 weeks - Early Invasive Strategies Radiology/Procedures: Radiology/Procedures: Exam performed: X-ray hip with pelvis and right knee 3 views. HISTORY: Right hip pain. DATE OF SERVICE: 09/18/2020. COMPARISON: None available FINDINGS: Single view pelvis and AP and frog-leg lateral view of the right hip is obtained. Postoperative changes of total right hip arthroplasty with prosthesis in satisfactory position. There is no acute fracture or dislocation. No soft tissue swelling or foreign body seen. AP, lateral and oblique views of the right knee are obtained. There is mild narrowing of the patellofemoral joint. The medial and lateral tibiofemoral joints are preserved. There is no acute fracture or dislocation. No soft tissue swelling or foreign body seen. IMPRESSION: Status post total right hip arthroplasty. No acute abnormality seen. Degenerative arthrosis involving the right knee. No acute abnormality seen. Electronically signed by: Velvet Bell MD (09/18/2020 8:07 PM) [facility] PROCEDURE: KNEE BILAT 3V ADDENDUM #1 Addendum: Left knee x-ray was also performed. 3 views left knee findings: AP, lateral and oblique views of the left knee are obtained. There is mild narrowing of the medial tibiofemoral and patellofemoral joint fracture or dislocation. No soft tissue swelling or foreign body seen. IMPRESSION: Degenerative arthrosis involving the left knee. No acute abnormality seen. Electronically signed by: Velvet Bell MD (09/18/2020 8:25 PM) [facility] PROCEDURE: CT PELVIS WO CONTRAST Exam performed: CT scan lumbar spine and Pelvis . Indication: Rt hip pain after fall Date of Service: 09/17/2020. Comparison:None available . Technique: Contiguous helical acquisitions of the lumbar spine and Pelvis are is obtained. Sagittal and coronal reformatted images are obtained and reviewed. CT lumbar spine findings: Normal sagittal alignment is preserved. Five nonrib-bearing vertebral bodies are identified. The vertebral body heights and intervertebral disc spaces are maintained. Vacuum disc seen at L5-S1 facet joints. There is no acute compression fracture. No prevertebral soft tissue swelling or mass is detected. The aorta is normal. Impression: 1. No acute abnormality seen in the CT of the lumbar spine. End impression CT PELVIS: Normal alignment of the left hip and sacroiliac joints is maintained. Status post total right hip arthroplasty. There is no acute fracture or dislocation. Vacuum disc phenomena seen in both sacroiliac joints and L5-S1 facet joints. The intrapelvic structures appear grossly unremarkable. The urinary bladder is partially decompressed. IMPRESSION: Status post total right hip arthroplasty. No acute abnormality seen. Electronically signed by: Velvet Bell MD (09/18/2020 9:24 PM) [facility] [] Course & Med Decision Making: Course & Med Decision Making Pertinent Labs and Imaging studies reviewed. (See chart for details) [id number] with Dr. Bey who is the admitting physician, and care was assumed following discussion of patient. Will admit patient for intractable right hip pain after fall, will order clear liquid diet. Patient's vital signs stable. Patient remains afebrile, appears nontoxic, respirations even and unlabored. Patient will be admitted to the medical surgical floor. Patient's case and plan of care also discussed with Dr. Campos [] Zechariah Disclaimer: Zechariah Disclaimer: This electronic medical record was generated, in whole or in part, using a voice recognition dictation system. Departure Departure Impression: Primary Impression: Intractable pain Additional Impressions: Fall Hip pain, right Disposition: ADMITTED INPATIENT Admitting Physician: Hesham Bey Condition: STABLE Referrals: HESHAM BEY MD (PCP) Problem Qualifiers Additional Impressions: Fall Encounter type: initial encounter Qualified Codes: W19.XXXA - Unspecified fall, initial encounter ALICIA MONROE ETL LEAD September 18, 2020 20:30
--- NOTE | 2020-09-18 21:26 | RAD ---
Exam performed: CT scan lumbar spine and Pelvis . Indication: Rt hip pain after fall Date of Service: 09/17/2020. Comparison:None available . Technique: Contiguous helical acquisitions of the lumbar spine and Pelvis are is obtained. Sagit crystal and coronal reformatted images are obtained and reviewed. CT lumbar spine findings: Normal sagittal alignment is preserved. Five nonrib-bearing vertebral bodies are identified. The vert ebral body heights and intervertebral disc spaces are maintained. Vacuum disc seen at L5-S1 facet yuliet nts. There is no acute compression fracture. No prevertebral soft tissue swelling or mass is detected . The aorta is normal. Impression: 1. No acute abnormality seen in the CT of the lumbar spine. End impression CT PELVIS: Normal alignment of the left hip and sacroiliac joints is maintained. Status post total right hip art hroplasty. There is no acute fracture or dislocation. Vacuum disc phenomena seen in both sacroiliac j oints and L5-S1 facet joints. The intrapelvic structures appear grossly unremarkable. The urinary ebonie dder is partially decompressed. IMPRESSION: Status post total right hip arthroplasty. No acute abnormality seen. Electronically signed by: Velvet Bell MD (09/18/2020 9:24 PM) [facility]
[2020-09-18] MEDS ORDERED: MORPHINE SULFATE 4 MG/ML VIAL. IV ONE (22:00)
[2020-09-18] MEDS ORDERED: levETIRAcetam 250 MG TABLET PO SCH (22:15)
[2020-09-18] MEDS ORDERED: levETIRAcetam 500 MG TABLET PO SCH (22:16)
[2020-09-19] VITALS (7 sets, daily range): BP systolic 117–181; BP diastolic 59–109
[2020-09-19] MEDS: MORPHINE SULFATE 4 MG/ML VIAL. IV PRN ×3 (00:52→06:48)
[2020-09-19] MEDS ORDERED: INSU100V6 (03:13)
[2020-09-19] MEDS ORDERED: LATANOPROST (03:13)
[2020-09-19] MEDS ORDERED: FAMO20TA5 PO (03:13)
[2020-09-19] MEDS ORDERED: METF500T16 PO (03:13)
[2020-09-19] MEDS ORDERED: TRIA1CAP3 PO (03:13)
[2020-09-19] MEDS ORDERED: ACETAMINOPHEN 325 MG TABLET. PO PRN (08:45)
[2020-09-19] MEDS ORDERED: CARBAMAZEPINE 300 MG PO SCH (09:00)
[2020-09-19] MEDS ORDERED: oxyCODONE IR 5 MG TABLET PO PRN (09:15)
[2020-09-19] MEDS ORDERED: INSULIN GLARGINE HUM REC ANLOG 60 UNIT SQ SCH (10:00)
--- NOTE | 2020-09-19 10:25 | HP ---
ADMIT DATE: 09/18/2020 CHIEF COMPLAINT: Fall. HISTORY OF PRESENT ILLNESS: A 65-year-old black female with a history of chronic hip pain after hip replacement and other medical problems, had a fall and landed on her knees and hit her face. There was no known seizure activity or loss of consciousness. She was unable to bear weight. There is a right hip pain. CT scans of her lumbar spine and hip and pelvis were unremarkable. She was admitted for failure to be able to ambulate. PAST MEDICAL HISTORY: She takes oxycodone chronically for hip pain after hip replacement. She has poorly-controlled diabetes, but has had Trulicity added three months ago and has lost weight and seems to be doing better in that regard. She has had seizure disorder since the benign brain tumor was removed. It was controlled with two medications per Dr. Cortez there. ALLERGIES: No allergies are noted. SOCIAL HISTORY: She is single, nonsmoker, nondrinker, not physically active ____. FAMILY HISTORY: Unremarkable. REVIEW OF SYSTEMS: No other complaints. OBJECTIVE: ENT: Unremarkable. No facial injuries are seen. NECK: Good range of motion. No masses, nodes or bruits. LUNGS: Clear. CARDIOVASCULAR: Regular rate. No irregular beat or murmur. ABDOMEN: Obese, benign and nontender. EXTREMITIES: Limited range of motion, primarily in the right hip. She has hip in normal anatomic position. Range of motion again limited. Knees are bruised without any active swelling. NEUROLOGIC: Physiologic and nonfocal, normal for her. ASSESSMENT: Fall with contusion ____ and decreased pain in the right hip jamming the pelvis. Her chronic right hip pain has been stable for a few years. PLAN: Monitoring for now. Would expect her to likely be able to discharge tomorrow with same outpatient medicines. ESTEPHANIA/SUB : ESTEPHANIA/mia TID: [id number]
[2020-09-19] MEDS: metFORMIN 500 MG TABLET PO SCH ×2 (10:44→16:55)
[2020-09-19] MEDS: TRIAMTERENE/HCTZ 37.5/25MG TABLET. PO SCH (10:44)
[2020-09-19] MEDS: CITALOPRAM 20 MG TABLET. PO SCH (10:45)
[2020-09-19] MEDS: GABAPENTIN 300 MG CAPSULE. PO SCH ×3 (10:45→21:46)
[2020-09-19] MEDS: FAMOTIDINE 20 MG TABLET. PO SCH ×2 (10:46→21:46)
[2020-09-19] MEDS: buPROPion XL 150 MG TAB.ER.24H. PO SCH (10:46)
[2020-09-19] MEDS: levETIRAcetam 250 MG TABLET PO SCH ×2 (10:46→21:46)
[2020-09-19] MEDS: SERTRALINE 50 MG TABLET. PO SCH (10:47)
--- NOTE | 2020-09-19 10:51 | PDOC2 ---
CONSULT Date of Consult Date of Consult DATE: 09/19/20 TIME: 10:47 Reason for Consult Reason for Consult: Right hip pain after fall. Referring Physician Referring Physician: Dr. Epperson. Identification/Chief Complaint Chief Complaint Right hip pain after fall. Source Source: Patient History of Present Illness Reason for Visit: Ms. Epperson is a pleasant 65-year-old female, admitted to the ER yesterday after ground-level fall. She complains of right hip pain. She underwent right total hip arthroplasty [address] Longoria. She has had chronic right hip pain and uses [place] on a daily basis due to this chronic pain. Yesterday, she was walking in the park when she tripped and fell directly onto her right side. She had an increase in her right hip pain and presented to the ER. Radiographs were taken. Since that time, her pain is improved and she has been ambulating on the medical surgical floor. Denies any numbness or tingling. Past Medical History Cardiovascular: HTN, Hyperlipidemia Pulmonary: No pertinent hx CENTRAL NERVOUS SYSTEM: Other GI: GERD, Hemorrhoids Heme/Onc: No pertinent hx Hepatobiliary: No pertinent hx Psych: Addictions, Depression Musculoskeletal: Osteoarthritis Infectious disease: No pertinent hx Renal/: Hematuria, Other Endocrine: Diabetes Past Surgical History Past Surgical History: Cataract Removal, Other Family History Family History: Coronary Artery Disease Social History ALCOHOL: none Drugs: None Lives: Alone Current Problem List Problem List Problems Medical Problems: (1) Fall Status: Acute (2) Hip pain, right Status: Acute (3) Intractable pain Status: Acute Current Medications Current Medications Current Medications Fentanyl Citrate (Fentanyl 2ml Vial) 50 mcg 1X ONCE IV Last administered on 09/18/20at 19:55; Start 09/18/20 at 20:00; Stop 09/19/20 at 08:41; Status DC Ondansetron HCl (Zofran) 4 mg 1X ONCE IV Last administered on 09/18/20at 19:56; Start 09/18/20 at 20:00; Stop 09/18/20 at 20:01; Status DC Morphine Sulfate (Morphine Sulfate) 4 mg 1X ONCE IV Last administered on 09/18/20at 22:06; Start 09/18/20 at 22:00; Stop 09/19/20 at 08:41; Status DC Levetiracetam (Keppra) 250 mg BID PO Last administered on 09/18/20at 22:57; Start 09/18/20 at 22:15; Stop 09/19/20 at 08:41; Status DC Levetiracetam (Keppra) 500 mg BID PO Last administered on 09/18/20at 22:57; Start 09/18/20 at 22:16; Stop 09/19/20 at 08:41; Status DC Carbamazepine (TEGretol XR) 300 mg BID PO Last administered on 09/18/20at 22:57; Start 09/18/20 at 22:16 Morphine Sulfate (Morphine Sulfate) 4 mg PRN Q2HR PRN IV PAIN Last administered on 09/19/20at 06:48; Start 09/18/20 at 22:45; Stop 09/19/20 at 08:41; Status DC Amlodipine Besylate (Norvasc) 10 mg HS PO ; Start 09/19/20 at 21:00 Atorvastatin Calcium (Lipitor) 10 mg QHS PO ; Start 09/19/20 at 21:00 Bupropion HCl (Wellbutrin Xl) 150 mg QAM PO ; Start 09/19/20 at 10:00 Famotidine (Pepcid) 20 mg BID PO ; Start 09/19/20 at 10:00 Latanoprost (Xalatan) 1 drop QHS OU ; Start 09/19/20 at 21:00 Metformin HCl (Glucophage) 500 mg BIDWMEALS PO ; Start 09/19/20 at 09:00 Sertraline HCl (Zoloft) 100 mg DAILY PO ; Start 09/19/20 at 10:00 Triamterene/HCTZ (Maxzide 37.5/ 25mg) 1 tab DAILY PO ; Start 09/19/20 at 09:00 Non-Formulary Medication (Carbamazepine ) 300 mg BID PO ; Start 09/19/20 at 09:00; Status UNV Citalopram Hydrobromide (CeleXA) 40 mg DAILY PO ; Start 09/19/20 at 10:00 Gabapentin (Neurontin) 900 mg TID PO ; Start 09/19/20 at 10:00 Non-Formulary Medication (Insulin Glargine,Hum.rec.anlog (Lantus Solostar)) 80 units DAILY08 SQ ; Start 09/20/20 at 08:00; Stop 09/19/20 at 08:49; Status DC Levetiracetam (Keppra) 750 mg BID PO ; Start 09/19/20 at 10:00 Lubiprostone (Amitiza) 24 mcg BIDWMEALS PO ; Start 09/19/20 at 17:00 Pantoprazole Sodium (Protonix) 40 mg HS PO ; Start 09/19/20 at 21:00 Oxycodone HCl (Roxicodone) 20 mg PRN TID PRN PO MODERATE TO SEVERE PAIN; Start 09/19/20 at 09:15 Acetaminophen (Tylenol) 650 mg PRN Q6HRS PRN PO MILD PAIN / TEMP > 100.3'F; Start 09/19/20 at 08:45 Non-Formulary Medication (Insulin Glargine,Hum.rec.anlog (Lantus Solostar)) 60 units DAILY08 SQ ; Start 09/19/20 at 10:00 Active Scripts Active Reported Humalog (Insulin Lispro) Unknown Strength Vial Unknown Dose PRN BFRMEALHC PRN Famotidine 20 Mg Tablet 1 Tab PO BID [Latanoprost] 0.005 Metformin Hcl 500 Mg Tablet 1 Tab PO BID Trulicity (Dulaglutide) 0.75 Mg/0.5 Ml Pen.injctr 0.75 Mg SQ WEEKLY Ferrous Sulfate 325 Mg Tablet 1 Tab PO BID Escitalopram Oxalate 20 Mg Tablet 1 Tab PO DAILY Bupropion Xl (Bupropion Hcl) 150 Mg Tab.er.24h 1 Tab PO QAM Gabapentin 600 Mg Tablet 900 Mg PO TID Oxycodone Hcl 20 Mg Tablet 20 Mg PO PRN TID PRN Lantus Solostar (Insulin Glargine,Hum.rec.anlog) 100 Unit/1 Ml Insuln.pen 80 Units SQ DAILY08 Carbamazepine 300 Mg Cpmp.12hr 300 Mg PO BID Linzess (Linaclotide) 145 Mcg Capsule 145 Mcg PO DAILY Amlodipine Besylate 10 Mg Tablet 10 Mg PO HS Omeprazole 40 Mg Capsule.dr 40 Mg PO HS Sertraline Hcl 50 Mg Tablet 100 Mg PO DAILY Levetiracetam 750 Mg Tablet 750 Mg PO BID Atorvastatin Calcium 10 Mg Tablet 10 Mg PO DAILY Triamterene-Hctz 37.5-25 Mg Tb (Triamterene/Hydrochlorothiazid) 1 Each Tablet 1 Tab PO DAILY Humulin R (Insulin Regular, Human) 100 Unit/1 Ml Vial 20 Unit SQ BIDAC Latanoprost 2.5 Ml Drops 1 Drop EACHEYE QHS LAST DOSE GIVEN: DATE:12-13-15 TIME:9:00 p.m. NEXT DOSE DUE: DATE:12-14-15 TIME:9:00 p.m. Allergies Allergies: Coded Allergies: Iodinated Contrast Media (Verified Allergy, Intermediate, Hives, 09/08/20) Per pt, hives on arm and face after heart cath diphtheria,pertussis (acellular),te (Verified Allergy, Intermediate, ) losartan (Verified Allergy, Intermediate, breaks out, 09/08/20) lisinopril (Verified Adverse Reaction, Intermediate, COUGH, 09/08/20) ROS Musculoskeletal: Yes Joint Pain, Yes Muscle Pain, Yes Muscular Weakness Physical Exam Physical Exam Examination of the right lower extremity reveals intact skin with mature surgical scar. No deformity or swelling noted. Range of motion is limited secondary to pain and guarding. Gross motor and distal neurovascular examination is intact. General: Alert Vitals VITALS Vital Signs Date Time Temp Pulse Resp B/P (MAP) Pulse Ox O2 Delivery O2 Flow Rate FiO2 09/19/20 10:32 97.9 97 18 147/84 (105) 98 Room Air 97.9 Labs Labs Laboratory Tests Test 09/19/20 01:00 Glucose (Fingerstick) 106 mg/dL (70-99) Laboratory Tests Test 09/19/20 01:00 Glucose (Fingerstick) 106 mg/dL (70-99) Images Images Radiographs of the right lower extremity reveal intact total hip prosthesis without acute abnormality. Right knee degenerative osteoarthritis. Assessment/Plan Assessment/Plan 65-year-old female with right hip pain status post ground-level fall yesterday. History of right total hip arthroplasty 3 years ago. -Radiographs reviewed without acute abnormality. Stable prosthesis. -Continue with pain management per primary care team and transition back to baseline medications. -Orthopedically stable for discharge when medical criteria are met. -Follow-up outpatient orthopedic clinic on an as-needed basis. -Thank you for allowing me to consult on this pleasant 65-year-old female. GOLDIE MEJIA DO Sep 19, 2020 10:51
[2020-09-19] MEDS: INSULIN GLARGINE SYRINGE. SQ SCH (12:30)
[2020-09-19] MEDS: LUBIPROSTONE 24 MCG CAPSULE PO SCH (16:55)
[2020-09-19] MEDS ORDERED: PANTOPRAZOLE 40 MG TABLET.DR. PO SCH (21:00)
[2020-09-19] MEDS ORDERED: ATORVASTATIN CALCIUM 10 MG TABLET. PO SCH (21:00)
[2020-09-19] MEDS ORDERED: amLODIPine BESYLATE 10 MG TABLET PO SCH (21:00)
[2020-09-19] MEDS ORDERED: LATANOPROST 0.005% OPHTH SOLUTION 2.5ML BOTTLE. OU SCH (21:00)
[2020-09-20 02:55] VITALS: BP 139/70
[2020-09-20 07:00] VITALS: BP 130/68
[2020-09-20] MEDS ORDERED: DEXTROSE 50% 25 GM / 50ML DISP.SYRIN. IV PRN (07:45)
[2020-09-20] MEDS ORDERED: INSULIN GLARGINE HUM REC ANLOG 80 UNIT SQ SCH (08:00)
[2020-09-20] MEDS: INSULIN GLARGINE SYRINGE. SQ SCH (08:00)
[2020-09-20] MEDS: metFORMIN 500 MG TABLET PO SCH (08:00)
--- NOTE | 2020-09-20 08:35 | PDOC ---
Provider Note Date of Service: DATE: 09/20/20 TIME: 08:33 Provider Note [id number] Justifications for Admission Other Justification HESHAM BEY MD Sep 20, 2020 08:35
[2020-09-20] MEDS: levETIRAcetam 250 MG TABLET PO SCH (09:23)
[2020-09-20] MEDS: LUBIPROSTONE 24 MCG CAPSULE PO SCH (09:23)
[2020-09-20] MEDS: buPROPion XL 150 MG TAB.ER.24H. PO SCH (09:23)
[2020-09-20] MEDS: SERTRALINE 50 MG TABLET. PO SCH (09:23)
[2020-09-20] MEDS: CITALOPRAM 20 MG TABLET. PO SCH (09:23)
[2020-09-20] MEDS: FAMOTIDINE 20 MG TABLET. PO SCH (09:23)
[2020-09-20] MEDS: TRIAMTERENE/HCTZ 37.5/25MG TABLET. PO SCH (09:23)
[2020-09-20] MEDS: GABAPENTIN 300 MG CAPSULE. PO SCH ×2 (09:23→15:26)
[2020-09-20 11:00] VITALS: BP 135/62
--- NOTE | 2020-09-20 12:23 | DS ---
DATE OF DISCHARGE: 09/20/2020 HOSPITAL COURSE: A 65-year-old black female who had a fall and break of both of her knees and jammed right hip and had intractable pain. X-rays and CT of the pelvis and hips was unremarkable and no fractures were seen. Laboratory studies were unremarkable. She had mildly low blood sugars while on clear liquids and this resolved with resumption of regular diet and she is feeling better and able to be discharged and followed as an outpatient at this point. FINAL DIAGNOSIS: Fall with secondary contusion of the knees and right hip. OPERATIONS, PROCEDURES, COMPLICATIONS: None. CONSULTATIONS: Dr. Wells. DISPOSITION: As she has been on Trulicity for a period of time and losing weight, we will drop her Lantus insulin from 130 units to 80 units daily until we see her in the office in 3 weeks. Rest of meds remain the same including her chronic opioid therapy with oxycodone. Activity as tolerated and prognosis is guarded. KENAN/SOMMER DR: Wu TID: [id number]
[2020-09-20 15:00] VITALS: BP 128/60
== END 2020-09-20 16:10 | disposition home or self-care (01) ==
LOC: ER 17:38 → 1 WEST ICU 22:33 → 4 NORTH 22:33 → UNDOADMIN 22:33
PROVIDERS: ADMIT Family Medicine; ATTEND Family Medicine
DX: S70.01XA Contusion of right hip, initial encounter (principal); S80.01XA Contusion of right knee, initial encounter; S80.02XA Contusion of left knee, initial encounter; I10 Essential (primary) hypertension; M25.551 Pain in right hip; G89.29 Other chronic pain; E11.40 Type 2 diabetes mellitus with diabetic neuropathy, unspecified; E78.00 Pure hypercholesterolemia, unspecified; E78.5 Hyperlipidemia, unspecified; G40.909 Epilepsy, unspecified, not intractable, without status epilepticus; M19.90 Unspecified osteoarthritis, unspecified site; K21.9 Gastro-esophageal reflux disease without esophagitis; F32.9 Major depressive disorder, single episode, unspecified; K64.9 Unspecified hemorrhoids; Z98.49 Cataract extraction status, unspecified eye; Z86.011 Personal history of benign neoplasm of the brain; Z87.891 Personal history of nicotine dependence; Z90.711 Acquired absence of uterus with remaining cervical stump; Z96.641 Presence of right artificial hip joint; Z79.4 Long term (current) use of insulin; W01.0XXA Fall on same level from slipping, tripping and stumbling without subsequent striking against object, initial encounter; Y93.01 Activity, walking, marching and hiking; Y92.89 Other specified places as the place of occurrence of the external cause; Y99.8 Other external cause status
CPT/HCPCS: 72131; 72192; 73502; 73562; 82962; 96372; 96374; 96375; 96376; 99285; G0378; J1815; J2270; J2405; J3010; G0379

== ENCOUNTER 2021-01-07 15:18 | Emergency (ER) | payer OTHER ==
[~2021-01-07] VITALS: Ht 147.3 cm; Wt 80.0 kg
[~2021-01-07 15:18] MED LIST changes: +FAMO20TA5 PO; +INSU100V6; +LATANOPROST; +TRIA1CAP3 PO
[2021-01-07] MEDS ORDERED: MORPHINE SULFATE 4 MG/ML INJ. IM ONE (19:45)
--- NOTE | 2021-01-07 19:57 | PHYS DOC ---
Past Medical History Past Medical History: Anxiety, Constipation, Depression, Diabetes-Type II, High Cholesterol, Hypertension, Other Additional Past Medical Histor: diabetic neuropathy,chronic rt hip pain, BRAIN SURGERY D/T TUMORS Past Surgical History: Hip Replacement, Other Additional Past Surgical Histo: R hip, CRANI WITH BRAIN MASS REMOVAL, PARTIAL HYSTERECTOMY, BENIGN CYSTS Smoking Status: Former Smoker Alcohol Use: None Drug Use: None General Adult EDM: Chief Complaint: MECHANICAL FALL HPI: HPI: Patient is a 65 year old female who presents with yesterday was walking in sandals when her left leg slid out and she pulled her inner groin muscle but she jerked her head to the side. She now has left-sided headache. She states that she has had many brain surgeries and she still has masses in her brain and she is worried that something is wrong with her brain. Patient states she also has slight neck pain. Patient states she is mainly here for a CT scan of her head to make sure everything is okay. She says she took her OxyContin 15 mg this morning. She states she still has a headache. She states she does have chronic headaches. Patient walked back to the room with her walker with a steady gait. She rates her pain a 9 out of 10 aching. She denies chest pain, vision anxious, syncope, hitting her head, actually falling to the floor, abdominal pain, nausea, vomiting, diarrhea, fever, shortness of breath, numbness or tingling, focal weakness. She has a history of depression, hip replacement, brain mass removal, partial hysterectomy, hypertension, high cholesterol, anxiety, constipation, diabetes. Review of Systems: Review of Systems: Constitutional: Denies fever or chills. [] Eyes: Denies change in visual acuity. [] HENT: Denies nasal congestion or sore throat. [] Respiratory: Denies cough or shortness of breath. [] Cardiovascular: Denies chest pain or edema. [] GI: Denies abdominal pain, nausea, vomiting, bloody stools or diarrhea. [] : Denies dysuria. [] Musculoskeletal: Denies back pain or joint pain. +Groin Pain[] Integument: Denies rash. [] Neurologic: + headache, denies focal weakness or sensory changes. [] Endocrine: Denies polyuria or polydipsia. [] Lymphatic: Denies swollen glands. [] Psychiatric: Denies depression or anxiety. [] Heart Score: C/O Chest Pain: No Allergies: Allergies: Allergies Coded Allergies Type Severity Reaction Last Updated Verified Iodinated Contrast Media Allergy Intermediate Hives 09/08/20 Yes diphtheria,pertussis (acellular),te Allergy Intermediate 09/08/20 Yes losartan Allergy Intermediate breaks out 09/08/20 Yes lisinopril Adverse Reaction Intermediate COUGH 09/08/20 Yes Physical Exam: PE: Constitutional: Well developed, well nourished, no acute distress, non-toxic appearance. [] HENT: Normocephalic, atraumatic, bilateral external ears normal, oropharynx moist, no oral exudates, nose normal. [] Eyes: PERRLA, EOMI, conjunctiva normal, no discharge. [] Neck: Normal range of motion, no tenderness, supple, no stridor. [] Cardiovascular:Heart rate regular rhythm, no murmur [] Lungs & Thorax: Bilateral breath sounds clear to auscultation [] Abdomen: Bowel sounds normal, soft, no tenderness, no masses, no pulsatile masses. [] Skin: Warm, dry, no erythema, no rash. [] Back: No tenderness, no CVA tenderness. [] Extremities: No tenderness, no cyanosis, no clubbing, ROM intact, no edema. [] Neurologic: Alert and oriented X 3, normal motor function, normal sensory function, no focal deficits noted. [] Psychologic: Affect normal, judgement normal, mood normal. [] Normal physical exam EKG: EKG: [] Radiology/Procedures: Radiology/Procedures: [] Impression: [facility] [address] [place], [place] [id number] IMAGING REPORT Signed PATIENT: JULITA BEY ACCOUNT: [id number] : 1955 LOCATION: ER AGE: 65 SEX: F EXAM STATUS: REG ER ORD. PHYSICIAN: NIKKY DOMÍNGUEZ APRN REASON: HEADACHE PROCEDURE: CT HEAD AND CERVICAL SPINE WO EXAMINATION: CT HEAD AND C-SPINE WO CLINICAL HISTORY: Headache TECHNIQUE: Serial axial images without IV contrast were obtained from the vertex to the foramen magnum. CT of the cervical spine without IV contrast. Spiral, high resolution axial images were obtained from the skull base to the cervicothoracic junction with sagittal and coronal planar reconstructions. CT Dose Reduction Employed: One or more of the following individualized dose reduction techniques were utilized for this examination: 1. Automated exposure control 2. Adjustment of the mA and/or kV according to patient size 3. Use of iterative reconstruction technique. COMPARISON: 10/12/2020 FINDINGS: BRAIN: Postoperative Change: Postoperative changes related to right frontal cranioplasty with prominent streak artifacts limiting evaluation in this region. Acute Change: No evidence of acute intracranial abnormality. Hemorrhage: No evidence of acute intracranial hemorrhage. Mass Lesion/Mass Effect: No evidence of intracranial mass or extraaxial fluid collection. No significant mass effect. Chronic Change: Atherosclerotic calcification of the bilateral carotid siphons. Parenchyma: No significant volume loss. Parenchyma otherwise within normal limits for age. Ventricles: Ventricles within normal limits for age. Paranasal Sinuses and Skull Base: Visualized paranasal sinuses clear. Visualized skull base and soft tissues unremarkable. C-SPINE: Alignment: Straightening of the normal cervical lordosis, likely positional. Osseous Structures: No evidence of acute fracture or spondylolisthesis. Degenerative Changes: Mild degenerative disc disease in the mid cervical spine. Mild to moderate multilevel facet arthropathy. No evidence of high-grade osseous neural foraminal or spinal stenosis. Cervical Soft Tissues: No prevertebral soft tissue swelling. Vascular calcifications. Emphysematous changes bilaterally apices. IMPRESSION: BRAIN: No evidence of acute intracranial abnormality or significant interval change. C-SPINE: No evidence of acute osseous abnormality involving the cervical spine or significant interval change. Electronically signed by: Cayden Graff DO (01/07/2021 8:34 PM) [facility] DI[facility]ATED and SIGNED BY: CAYDEN GRAFF DO DATE: 01/07/[id number] 0 Course & Med Decision Making: Course & Med Decision Making Pertinent Labs and Imaging studies reviewed. (See chart for details) See HPI. Alert and oriented x4. Ambulatory steady with a walker. Speaks in full clear sentences. Moving all extremities equally normally. No tenderness to the left groin. She states it hurts with movement only. No focal weaknesses. No joint laxity or deformity or swelling. Full range of motion of the neck. No focal bony spinal tenderness. No tenderness to her skull. No bruising to her skull or laceration. [] Zechariah Disclaimer: Zechariah Disclaimer: This electronic medical record was generated, in whole or in part, using a voice recognition dictation system. Departure Departure Impression: Primary Impression: Strain of groin Qualified Codes: S76.212A - Strain of adductor muscle, fascia and tendon of left thigh, initial encounter Additional Impression: Headache Qualified Codes: R51.9 - Headache, unspecified; G89.29 - Other chronic pain Disposition: HOME / SELF CARE / HOMELESS Condition: STABLE Referrals: HESHAM BEY MD (PCP) Patient Instructions: General Headache Without Cause, Groin Strain Additional Instructions: Follow-up with primary care provider. Drink plenty of fluids. Take your medications as prescribed and with food. Use a warm heating pad on your groin. NIKKY DOMÍNGUEZ [employer] Jan 07, 2021 19:57
[2021-01-07 20:30] VITALS: BP 151/75
--- NOTE | 2021-01-07 20:36 | RAD ---
EXAMINATION: CT HEAD AND C-SPINE WO CLINICAL HISTORY: Headache TECHNIQUE: Serial axial images without IV contrast were obtained from the vertex to the foramen magnum. CT of the cervical spine without IV contrast. Spiral, high resolution axial images were obtained from the skull base to the cervicothoracic junction with sagittal and coronal planar reconstructions. CT Dose Reduction Employed: One or more of the following individualized dose reduction techniques wer e utilized for this examination: 1. Automated exposure control 2. Adjustment of the mA and/or kV ac cording to patient size 3. Use of iterative reconstruction technique. COMPARISON: 10/12/2020 FINDINGS: BRAIN: Postoperative Change: Postoperative changes related to right frontal cranioplasty with prominent stre ak artifacts limiting evaluation in this region. Acute Change: No evidence of acute intracranial abnormality. Hemorrhage: No evidence of acute intracranial hemorrhage. Mass Lesion/Mass Effect: No evidence of intracranial mass or extraaxial fluid collection. No signific ant mass effect. Chronic Change: Atherosclerotic calcification of the bilateral carotid siphons. Parenchyma: No significant volume loss. Parenchyma otherwise within normal limits for age. Ventricles: Ventricles within normal limits for age. Paranasal Sinuses and Skull Base: Visualized paranasal sinuses clear. Visualized skull base and soft tissues unremarkable. C-SPINE: Alignment: Straightening of the normal cervical lordosis, likely positional. Osseous Structures: No evidence of acute fracture or spondylolisthesis. Degenerative Changes: Mild degenerative disc disease in the mid cervical spine. Mild to moderate mult ilevel facet arthropathy. No evidence of high-grade osseous neural foraminal or spinal stenosis. Cervical Soft Tissues: No prevertebral soft tissue swelling. Vascular calcifications. Emphysematous c hanges bilaterally apices. IMPRESSION: BRAIN: No evidence of acute intracranial abnormality or significant interval change. C-SPINE: No evidence of acute osseous abnormality involving the cervical spine or significant interval change. Electronically signed by: Cayden Linder DO (01/07/2021 8:34 PM) [facility]
== END 2021-01-07 20:50 | disposition home or self-care (01) ==
LOC: ER 15:18
DX: S76.212A Strain of adductor muscle, fascia and tendon of left thigh, initial encounter (principal); R51.9 Headache, unspecified; M54.2 Cervicalgia; G89.29 Other chronic pain; E78.00 Pure hypercholesterolemia, unspecified; I10 Essential (primary) hypertension; E11.40 Type 2 diabetes mellitus with diabetic neuropathy, unspecified; Z87.891 Personal history of nicotine dependence; Z91.041 Radiographic dye allergy status; Z88.6 Allergy status to analgesic agent; Z88.8 Allergy status to other drugs, medicaments and biological substances; W18.39XA Other fall on same level, initial encounter; Y93.01 Activity, walking, marching and hiking; Y92.89 Other specified places as the place of occurrence of the external cause; Y99.8 Other external cause status
CPT/HCPCS: 70450; 72125; 96372; 99285; J2270

== ENCOUNTER 2021-04-08 06:13 | Emergency (ER) | payer OTHER ==
[~2021-04-08] VITALS: Ht 147.3 cm; Wt 72.7 kg
--- NOTE | 2021-04-08 06:59 | RAD ---
EXAM: CHEST ONE VIEW. HISTORY: Cough. COMPARISON: 10/12/2020. FINDINGS: A frontal view of the chest is obtained. There are no confluent infiltrates. There is no pneumothorax or pleural effusion. The heart is not en larged. IMPRESSION: 1. No confluent infiltrates. Electronically signed by: Helga Vasquez MD (04/08/2021 6:57 AM) [facility]
[2021-04-08] MEDS ORDERED: ACETAMINOPHEN 500 MG TABLET PO ONE (07:00)
[2021-04-08 07:14] VITALS: BP 165/72
--- NOTE | 2021-04-08 07:22 | PHYS DOC ---
Past Medical History Past Medical History: Anxiety, Constipation, Depression, Diabetes-Type II, High Cholesterol, Hypertension, Other Additional Past Medical Histor: diabetic neuropathy,chronic rt hip pain, BRAIN SURGERY D/T TUMORS Past Surgical History: Hip Replacement, Other Additional Past Surgical Histo: brain surgery Smoking Status: Former Smoker Alcohol Use: None Drug Use: None Adult General Chief Complaint Chief Complaint: COUGH HPI HPI The patient is a 65-year-old female with a history of hypertension, hyperli pidemia and [id number]-hzwsmlhvc diabetes as well as a seizure disorder. She is fully vaccinated against COVID-19. She presents for evaluation of nasal congestion, rhinorrhea and dry cough with onset over the past couple of days. Son is sick with similar symptoms at home and patient believes he gave her the infection. No fevers, nausea or vomiting, decreased oral intake, shortness of breath or chest pain of any kind, body aches, fatigue, malaise, diarrhea. Patient is alert and pleasantly and appropriately interactive and in no acute distress with appropriate vital signs including oxygenation upon initial evaluation here in the emergency department. No therapy for symptoms prior to arrival. Review of Systems Review of Systems A 12 point review of systems was completed and was negative except where noted in HPI above. Current Medications Current Medications Current Medications Medications (Trade) Dose Ordered Sig/Jani Start Time Stop Time Status Last Admin Dose Admin Acetaminophen (Tylenol) 1,000 mg 1X ONCE 04/08/21 07:00 04/08/21 07:01 DC 04/08/21 06:41 1,000 MG Allergies Allergies Allergies Coded Allergies Type Severity Reaction Last Updated Verified Iodinated Contrast Media Allergy Intermediate Hives 09/08/20 Yes diphtheria,pertussis (acellular),te Allergy Intermediate 09/08/20 Yes losartan Allergy Intermediate breaks out 09/08/20 Yes lisinopril Adverse Reaction Intermediate COUGH 09/08/20 Yes Physical Exam Physical Exam Older female appearing nontoxic and in no acute distress. Head is normocephalic and atraumatic. Neck is supple and nontender. Oropharynx is moist. There is mild nasal mucus bilaterally. Lungs are clear to auscultation at all stations. There is a normal S1 and S2 without rubs or gallops and capillary refill is appropriate, less than 2 seconds globally. Abdomen is soft, nontender nondistended. Skin is warm and dry without cyanosis, clubbing or edema. Psychiatrically, the patient demonstrates appropriate mood and affect and is alert. Evaluation of the extremities reveals BUEs and BLEs neurovascularly intact distally with strength 5/5, sensation intact light touch in all nerve distributions, radial, DP and PT pulses 2+ and equal bilaterally, capillary refill less than 2 seconds, hands and feet warm and well-perfused. No dependent peripheral edema distally. No calf tenderness or swelling bilaterally. Current Patient Data Vital Signs Vital Signs Date Time Temp Pulse Resp B/P (MAP) Pulse Ox O2 Delivery O2 Flow Rate FiO2 04/08/21 06:15 97.8 99 20 162/72 (102) 98 Room Air 97.8 Lab Values Laboratory Tests Test 04/08/21 06:44 SARS-CoV-2 Antigen (Rapid) Negative (NEGATIVE) EKG EKG [] Radiology/Procedures Radiology/Procedures EXAM: CHEST ONE VIEW. HISTORY: Cough. COMPARISON: 10/12/2020. FINDINGS: A frontal view of the chest is obtained. There are no confluent infiltrates. There is no pneumothorax or pleural effusion. The heart is not enlarged. IMPRESSION: 1. No confluent infiltrates. Electronically signed by: Helga Vasquez MD (04/08/2021 6:57 AM) [facility] DICTATED and SIGNED BY: ERIC VASQUEZ MD DATE: 04/08/21 [id number] Course & Med Decision Making Course & Med Decision Making Covid negative. Chest x-ray clear. Vital signs and clinical examination are reassuring. Mild viral upper respiratory infection. Will discharge home to continue good supportive care and follow-up closely with primary. Patient understands that if she feels worse instead of better or develops other new symptoms of concern that she will need to return to the emergency department immediately for reevaluation. All questions are answered. Dragon Disclaimer Dragon Disclaimer This electronic medical record was generated, in whole or in part, using a voice recognition dictation system. Departure Departure Impression: Primary Impression: Upper respiratory infection, viral Disposition: HOME / SELF CARE / HOMELESS Condition: GOOD Referrals: HESHAM BEY MD (PCP) Patient Instructions: Upper Respiratory Infection, Adult Additional Instructions: Follow-up very closely with your primary care doctor in the office in the next 2 to 4 days for a reevaluation of your symptoms and to discussion of next best steps in care. Drink plenty of fluids and get plenty of rest. You may use generic DayQuil and NyQuil to manage symptoms and help you to feel better. Return to the emergency department right away for worsening symptoms of any kind or with any other new symptoms of concern. JOY DELCID MD Apr 08, 2021 07:22
--- NOTE | 2021-04-09 16:31 | NUR ---
IP: Attempted to contact pt concerning covid results. Phone number provided is not in service.
== END 2021-04-08 07:32 | disposition home or self-care (01) ==
LOC: ER 06:13
DX: J06.9 Acute upper respiratory infection, unspecified (principal); B97.89 Other viral agents as the cause of diseases classified elsewhere; E78.00 Pure hypercholesterolemia, unspecified; Z20.822 Contact with and (suspected) exposure to COVID-19; I10 Essential (primary) hypertension; G89.29 Other chronic pain; E11.40 Type 2 diabetes mellitus with diabetic neuropathy, unspecified; Z87.891 Personal history of nicotine dependence; Z91.041 Radiographic dye allergy status; Z88.6 Allergy status to analgesic agent; Z88.7 Allergy status to serum and vaccine
CPT/HCPCS: 71045; 87426; 99284; U0003; U0005; 99283

== ENCOUNTER 2021-07-31 00:30 | Emergency (ER) | payer OTHER ==
[~2021-07-31] VITALS: Ht 147.3 cm; Wt 72.7 kg
[2021-07-31 00:45] LABS: BASO # 0.1 x10^3/uL (0.0-0.2); BASO % 1 % (0-3); EOS # 0.1 x10^3/uL (0.0-0.7); EOS % 1 % (0-3); HEMATOCRIT 32.8 % (36.0-47.0); HEMOGLOBIN 11.5 g/dL (12.0-15.5); LYMPH # 2.3 x10^3/uL (1.0-4.8); LYMPH % 39 % (24-48); MEAN CORPUSCULAR HEMOGLOBIN 30 pg (25-35); MEAN CORPUSCULAR HGB CONC 35 g/dL (31-37); MEAN CORPUSCULAR VOLUME 87 fL (79-100); MONO # 0.6 x10^3/uL (0.0-1.1); MONO % 10 % (0-9); NEUT # 2.8 x10^3/uL (1.8-7.7); NEUT % 49 % (31-73); PLATELET COUNT 245 x10^3/uL (140-400); RED BLOOD COUNT 3.78 x10^6/uL (3.50-5.40); RED CELL DISTRIBUTION WIDTH 12.3 % (11.5-14.5); WHITE BLOOD COUNT 5.8 x10^3/uL (4.0-11.0)
[2021-07-31 00:58] LABS: CALCIUM 9.6 mg/dL (8.5-10.1); CREATININE 1.7 mg/dL (0.6-1.0); GFR 36.2; POTASSIUM 4.3 mmol/L (3.5-5.1)
[2021-07-31] MEDS ORDERED: ACETAMINOPHEN 500 MG TABLET PO ONE (01:00)
[2021-07-31] MEDS ORDERED: IV NORMAL SALINE 500ML BAG 500 ML IV ONE (01:00)
[2021-07-31 01:01] LABS: ALBUMIN/GLOBULIN RATIO 1.2 (1.0-1.7); TOTAL BILIRUBIN 0.2 mg/dL (0.2-1.0); TOTAL PROTEIN 7.3 g/dL (6.4-8.2)
--- NOTE | 2021-07-31 01:04 | RAD ---
EXAM: AP View of the chest DATE: 07/31/2021 12:49 AM INDICATION: Reason: weakness, SOA / Spl. Instructions: / History: COMPARISON: No Prior FINDINGS: The heart is not enlarged. Mediastinal and hilar contours are normal. No focal parenchymal airspace opacity. No pleural effusion or pneumothorax. IMPRESSION: 1. No radiographic evidence for acute cardiopulmonary process. Electronically signed by: Júnior Canales MD (07/31/2021 1:02 AM) [facility]
--- NOTE | 2021-07-31 01:20 | RAD ---
EXAM: CT Head without IV contrast CLINICAL HISTORY: Reason: headache / Spl. Instructions: / History: COMPARISON: None. TECHNIQUE: Routine CT of the head without contrast. PQRS compliance statement - One or more of the following individualized dose reduction techniques wer e utilized for this study: 1. Automated exposure control 2. Adjustment of the mA and/or kV according to patient size 3. Use of iterative reconstruction technique FINDINGS: There is no evidence of hemorrhage, mass or extra-axial fluid collection. Narayan-white differentiation is maintained with no evidence of edema. There is no mass effect or shift of the intracranial structures. The ventricles, basilar cisterns and cortical sulci are normal in size and configuration for the randee ents stated age. The cerebellum and brainstem are unremarkable. Changes of prior right frontal cranioplasty with associated streak artifact limits evaluation. Calvar ium otherwise demonstrates no evidence of fracture or focal lesion. There is normal aeration of the visualized paranasal sinuses and mastoid air cells. The visualized portions of the orbits are normal. IMPRESSION: No evidence for acute intracranial process. Electronically signed by: Júnior Canales MD (07/31/2021 1:18 AM) [facility]
[2021-07-31] MEDS ORDERED: IV NORMAL SALINE 1000ML BAG 1,000 ML IV ONE (01:30)
[2021-07-31 03:38] VITALS: BP 166/83
--- NOTE | 2021-07-31 04:07 | PHYS DOC ---
Past Medical History Past Medical History: Anxiety, Constipation, Depression, Diabetes-Type II, High Cholesterol, Hypertension, Other Additional Past Medical Histor: diabetic neuropathy,chronic rt hip pain, BRAIN SURGERY D/T TUMORS Past Surgical History: Hip Replacement, Other Additional Past Surgical Histo: brain surgery Smoking Status: Former Smoker Alcohol Use: None Drug Use: None Adult General Chief Complaint Chief Complaint: BLOOD SUGAR PROBLEM [facility] HPI The patient is a 66-year-old female with a history of hypertension, hyperlipidemia, insulin-dependent diabetes and an apparent seizure disorder on antiepileptic medication. Ms. Bey presents for evaluation of elevated blood sugars at home. States she has not been compliant with diet or her insulins for a couple of weeks now; states she has been eating junk food because she did not feel like cooking. Reports some associated intermittent mild lightheadedness. Denies having had any falls. This evening she measured a blood glucose of around 500 at home and called EMS. During transport, blood glucose was 240. Other vital signs were appropriate. On arrival, patient is alert, pleasantly and appropriately interactive and in no acute distress. On review of systems she endorses feeling wobbly sometimes with ambulation but tells me this has been going on for many months, is not worse than it has been, and that she uses a walker because of the wobbliness. Patient denies fevers, vomiting, focal or lateralizing weakness, numbness or tingling, neck stiffness/pain/meningismus, vision changes, upper respiratory congestion/rhinorrhea, cough, sore throat, shortness of breath or chest pain of any kind, abdominal pain of any kind, flank pain, midline back pain, dysuria, hematuria, polyuria or oliguria, changes in bowel habits, pain or swelling to arms or legs. Review of Systems Review of Systems Constitutional: Denies fever or chills [] Eyes: Denies change in visual acuity, redness, or eye pain [] HENT: Denies nasal congestion or sore throat [] Respiratory: Denies cough or shortness of breath [] Cardiovascular: No additional information not addressed in HPI [] GI: Denies abdominal pain, nausea, vomiting, bloody stools or diarrhea [] : Denies dysuria or hematuria [] Musculoskeletal: Denies back pain or joint pain [] Integument: Denies rash or skin lesions [] Neurologic: Denies headache, focal weakness or sensory changes [] Endocrine: Denies polyuria or polydipsia [] All other systems were reviewed and found to be within normal limits, except as documented in this note. Current Medications Current Medications Current Medications Medications (Trade) Dose Ordered Sig/Jani Start Time Stop Time Status Last Admin Dose Admin Acetaminophen (Tylenol) 1,000 mg 1X ONCE 07/31/21 01:00 07/31/21 01:01 DC 07/31/21 01:19 1,000 MG Sodium Chloride 1,000 ml @ 1,000 mls/hr 1X ONCE 07/31/21 01:30 07/31/21 02:29 DC 07/31/21 01:19 1,000 MLS/HR Allergies Allergies Allergies Coded Allergies Type Severity Reaction Last Updated Verified Iodinated Contrast Media Allergy Intermediate Hives 09/08/20 Yes diphtheria,pertussis (acellular),te Allergy Intermediate 09/08/20 Yes losartan Allergy Intermediate breaks out 09/08/20 Yes lisinopril Adverse Reaction Intermediate COUGH 09/08/20 Yes Physical Exam Physical Exam Constitutional: Well developed, well nourished, no acute distress, non-toxic appearance. [] HENT: Normocephalic, atraumatic, bilateral external ears normal, oropharynx moist, no oral exudates, nose normal. [] Eyes: PERRLA, EOMI, conjunctiva normal, no discharge. [] Neck: Normal range of motion, no tenderness, supple, no stridor. [] Cardiovascular:Heart rate regular rhythm, no murmur [] Lungs & Thorax: Bilateral breath sounds clear to auscultation [] Abdomen: Bowel sounds normal, soft, no tenderness, no masses, no pulsatile masses. [] Skin: Warm, dry, no erythema, no rash. [] Back: No tenderness, no CVA tenderness. [] Extremities: No tenderness, no cyanosis, no clubbing, ROM intact, no edema. [] Neurologic: Alert and oriented X 3, normal motor function, normal sensory function, no focal deficits noted. [] Psychologic: Affect normal, judgement normal, mood normal. [] Current Patient Data Vital Signs Vital Signs Date Time Temp Pulse Resp B/P (MAP) Pulse Ox O2 Delivery O2 Flow Rate FiO2 07/31/21 00:30 97.6 92 16 144/88 (106) 100 Room Air 97.6 Lab Values Laboratory Tests Test 07/31/21 00:37 White Blood Count 5.8 x10^3/uL (4.0-11.0) Red Blood Count 3.78 x10^6/uL (3.50-5.40) Hemoglobin 11.5 g/dL (12.0-15.5) L Hematocrit 32.8 % (36.0-47.0) L Mean Corpuscular Volume 87 fL (79-100) Mean Corpuscular Hemoglobin 30 pg (25-35) Mean Corpuscular Hemoglobin Concent 35 g/dL (31-37) Red Cell Distribution Width 12.3 % (11.5-14.5) Platelet Count 245 x10^3/uL (140-400) Neutrophils (%) (Auto) 49 % (31-73) Lymphocytes (%) (Auto) 39 % (24-48) Monocytes (%) (Auto) 10 % (0-9) H Eosinophils (%) (Auto) 1 % (0-3) Basophils (%) (Auto) 1 % (0-3) Neutrophils # (Auto) 2.8 x10^3/uL (1.8-7.7) Lymphocytes # (Auto) 2.3 x10^3/uL (1.0-4.8) Monocytes # (Auto) 0.6 x10^3/uL (0.0-1.1) Eosinophils # (Auto) 0.1 x10^3/uL (0.0-0.7) Basophils # (Auto) 0.1 x10^3/uL (0.0-0.2) Sodium Level 136 mmol/L (136-145) Potassium Level 4.3 mmol/L (3.5-5.1) Chloride Level 99 mmol/L (98-107) Carbon Dioxide Level 26 mmol/L (21-32) Anion Gap 11 (6-14) Blood Urea Nitrogen 30 mg/dL (7-20) H Creatinine 1.7 mg/dL (0.6-1.0) H Estimated GFR (Cockcroft-Gault) 36.2 BUN/Creatinine Ratio 18 (6-20) Glucose Level 208 mg/dL (70-99) H Calcium Level 9.6 mg/dL (8.5-10.1) Total Bilirubin 0.2 mg/dL (0.2-1.0) Aspartate Amino Transferase (AST) 13 U/L (15-37) L Alanine Aminotransferase (ALT) 28 U/L (14-59) Alkaline Phosphatase 113 U/L (46-116) Troponin I High Sensitivity 10 ng/L (4-50) TZ-Wxp-F-Type Natriuretic Peptide 49 pg/mL (0-124) Total Protein 7.3 g/dL (6.4-8.2) Albumin 4.0 g/dL (3.4-5.0) Albumin/Globulin Ratio 1.2 (1.0-1.7) Acetone Level Neg (NEG) Laboratory Tests 07/31/21 00:37 Laboratory Tests 07/31/21 00:37 EKG EKG Sinus rhythm, rate 86, no acute ST elevation or depression, ME 206, QRS 82, QTc 441, EP interpretation. Nonischemic tracing. Radiology/Procedures Radiology/Procedures EXAM: CT Head without IV contrast CLINICAL HISTORY: Reason: headache / Spl. Instructions: / History: COMPARISON: None. TECHNIQUE: Routine CT of the head without contrast. PQRS compliance statement - One or more of the following individualized dose reduction techniques were utilized for this study: 1. Automated exposure control 2. Adjustment of the mA and/or kV according to patient size 3. Use of iterative reconstruction technique FINDINGS: There is no evidence of hemorrhage, mass or extra-axial fluid collection. Narayan-white differentiation is maintained with no evidence of edema. There is no mass effect or shift of the intracranial structures. The ventricles, basilar cisterns and cortical sulci are normal in size and configuration for the patients stated age. The cerebellum and brainstem are unremarkable. Changes of prior right frontal cranioplasty with associated streak artifact limits evaluation. Calvarium otherwise demonstrates no evidence of fracture or focal lesion. There is normal aeration of the visualized paranasal sinuses and mastoid air cells. The visualized portions of the orbits are normal. IMPRESSION: No evidence for acute intracranial process. Electronically signed by: Júnior Higgins MD (07/31/2021 1:18 AM) [facility] DICTATED and SIGNED BY: JÚNIOR HIGGINS MD DATE: 07/31/21 0116 EXAM: AP View of the chest DATE: 07/31/2021 12:49 AM INDICATION: Reason: weakness, SOA / Spl. Instructions: / History: COMPARISON: No Prior FINDINGS: The heart is not enlarged. Mediastinal and hilar contours are normal. No focal parenchymal airspace opacity. No pleural effusion or pneumothorax. IMPRESSION: 1. No radiographic evidence for acute cardiopulmonary process. Electronically signed by: Júnior Higgins MD (07/31/2021 1:02 AM) [facility] DICTATED and SIGNED BY: JÚNIOR HIGGINS MD DATE: 07/31/21100 Course & Med Decision Making Course & Med Decision Making Labs and imaging unremarkable. Creatinine slightly elevated at 1.7 but this is within the range that seems to be baseline for Ms. Bey over the past couple of years. She has received crystalloid rehydration x1.5 L. Patient feels much better and is ambulatory with her walker without difficulty here in the emergency department. States she feels a little wobbly with ambulation but states she always feels a little wobbly with ambulation and that this is nothing new or different. Offered her admission to the hospital for evaluation by physical therapy and further care but she declines admission, preferring to go home and follow-up closely with her doctor in the office. This is not unreasonable. We discussed at length, and she understands, that appropriate diet and compliance with her insulin is a cornerstone of good health for her moving forward. She understands that if she feels worse instead of better or de velops other new symptoms of concern that she should return to the emergency department immediately for reevaluation. All questions are answered. Dragon Disclaimer Dragon Disclaimer This electronic medical record was generated, in whole or in part, using a voice recognition dictation system. Departure Departure Impression: Primary Impression: Hyperglycemia due to type 1 diabetes mellitus Additional Impression: Dehydration Disposition: 01 HOME / SELF CARE / HOMELESS Condition: IMPROVED Referrals: HESHAM BEY MD (PCP) Patient Instructions: Hyperglycemia Additional Instructions: Follow-up very closely with Dr. Bey in the office in the next 2 to 4 days for a reevaluation of your symptoms and a discussion of next best steps in care. Drink plenty of fluids to stay hydrated and get plenty of rest. It is very important that you eat healthy foods and keep track of your blood sugars and use your insulins as they are prescribed for you. If your blood sugar is out of control you will get dehydrated and have other problems which are very prev entable. Return to the emergency department right away for worsening symptoms of any kind or with any other new symptoms of concern. Problem Qualifiers JOY DELCID MD Jul 31, 2021 04:07
--- NOTE | 2021-07-31 04:29 | EKG ---
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
== END 2021-07-31 04:35 | disposition home or self-care (01) ==
LOC: ER 00:30
DX: E10.65 Type 1 diabetes mellitus with hyperglycemia (principal); E78.00 Pure hypercholesterolemia, unspecified; I10 Essential (primary) hypertension; G89.29 Other chronic pain; Z87.891 Personal history of nicotine dependence; Z91.041 Radiographic dye allergy status; Z88.6 Allergy status to analgesic agent; Z88.8 Allergy status to other drugs, medicaments and biological substances; Z88.7 Allergy status to serum and vaccine
CPT/HCPCS: 36415; 70450; 71045; 80053; 82010; 83880; 84484; 85025; 93005; 96360; 96361; 99285; J7030; J7040